=== PATIENT | male | born 1985 | race Caucasian/White ===

== ENCOUNTER 2019-12-31 08:58 | Outpatient (REF) | payer OTHER, SELFPAY | END 2019-12-31 08:59 | disposition home or self-care (01) | LOC: HO.LAB 08:58 | PROVIDERS: Visit Provider Internal Medicine | DX: Z20.828 Contact with and (suspected) exposure to other viral communicable diseases (principal) | CPT/HCPCS: C9803; U0003 ==

== ENCOUNTER 2021-08-09 15:49 | Outpatient (REF) | payer OTHER, SELFPAY ==
--- NOTE | ~2021-08-09 | XR_ITS ---
EXAMINATION: XR LUMBOSACRAL SPINE WITH OBLIQUES CLINICAL INFORMATION: Low back pain. COMPARISON: CT abdomen of 11/05/2018. TECHNIQUE: AP, both oblique, and lateral views of the lumbar spine. Lateral view of the lumbosacral junction. FINDINGS: There is no evidence of acute fracture, spondylolisthesis, or spondylolysis of the lumbar spine. There is disc space narrowing seen at the L5-S1 level with bilateral facet arthropathy right greater than left. Pedicles are intact. Sacroiliac joints unremarkable. Psoas margins intact. XR/XR lumbar spine 4V min IMPRESSION: Degenerative disc disease L5-S1 level. No acute fracture, spondylolisthesis, or spondylolysis identified.
== END 2021-08-09 15:50 | disposition home or self-care (01) ==
LOC: HO.XRAY 15:49
PROVIDERS: Visit Provider Emergency Medicine
DX: M54.50 Low back pain, unspecified (principal)
CPT/HCPCS: 72110

== ENCOUNTER 2021-09-04 23:30 | Emergency (ER) | payer OTHER, SELFPAY ==
--- NOTE | ~2021-09-04 | XR_ITS ---
EXAMINATION: XR CHEST CLINICAL INFORMATION: Chest pain COMPARISON: None TECHNIQUE: 2 views of the chest were obtained. FINDINGS: No significant abnormality is noted involving the heart, lungs, mediastinum, bony thorax or soft tissues. XR/XR chest 2V IMPRESSION: Unremarkable examination.
--- NOTE | 2021-09-04 23:37 | ECG_ITS ---
Test Reason : chest pain Blood Pressure : / mmHG Vent. Rate : 082 BPM Atrial Rate : 082 BPM P-R Int : 134 ms QRS Dur : 122 ms QT Int : 404 ms P-R-T Axes : 017 022 037 degrees QTc Int : 472 ms Normal sinus rhythm with sinus arrhythmia Non-specific intra-ventricular conduction delay Borderline ECG No previous ECGs available Referred By: Sydnie Prasad Electronically Signed By:ADITI DUNBAR
[2021-09-04 23:56] VITALS: BP 148/99; PULSE 94; RESP 16; TEMP 36.9; O2SAT 94; BMI 34.2
[2021-09-05 01:12] LABS: MANUAL DIFF FLAG NO
[2021-09-05 01:26] LABS: Basophils Percent Auto 0.4 % (0-2); Eosinophils Absolute Auto 0.1 X10*3/uL (0.0-0.4); Eosinophils Percent Auto 1.8 % (0-4); Hematocrit 42.8 % (42.0-52.0); Imm Gran Abs Auto 0.04 X10*3/uL (0.00-0.03); Imm Gran Pct Auto 0.6 % (0.0-0.4); Lymphocytes Absolute Auto 3.4 X10*3/uL (1.2-4.9); Lymphocytes Percent Auto 49.8 % (20-40); Mean Corpuscular Volume 94.1 fL (80.0-98.0); Monocytes Absolute Auto 0.7 X10*3/uL (0.1-1.2); Monocytes Percent Auto 9.5 % (2-11); Neutrophils Absolute Auto 2.6 x10*3/uL (2.0-8.3); Neutrophils Percent Auto 37.9 % (45-73); Red Blood Count 4.55 X10*6/uL (4.60-5.80); Red Cell Distribution Width 13.7 % (11.0-16.0); SCAN SMEAR FLAG 1; White Blood Count 6.9 X10*3/uL (4.8-10.8)
[2021-09-05 01:27] LABS: PLT ABN DIST 1
[2021-09-05 01:41] LABS: Troponin-I High Sensitivity < 3.5 ng/L (<3.5-35.0)
--- NOTE | 2021-09-05 01:41 | ED_ITS ---
HPI - Chest Pain General Chief Complaint: Chest Pain Stated Complaint: chest pain Time Seen by Provider: 09/04/21 23:36 Source: patient Mode of arrival: ambulatory History of Present Illness HPI narrative: 35-year-old male who presents with a history opioid dependency and has been clean for a number of years and presents with 3 months of left-sided chest pain that has not been associated with nausea, dizziness, shortness of breath but he states that the pain is worse today. On further questioning patient states that he has been using crack cocaine and last used at 21:30 last night. Related Data Allergies Allergy/AdvReac Type Severity Reaction Status Date / Time No Known Allergies Allergy Verified 09/04/21 23:57 [No Known Allergies*] Review of Systems Review of Systems: Pertinent positives and negatives as stated HPI 10 point review of systems is otherwise negative. PMFSH Past Medical History Source: nursing notes reviewed Social History Social History Advance Directives: No Advance Directives Information Provided: Yes Physical Exam Vital Signs: Vital Signs: Last Vital Signs Temp 98.4 F 09/04/21 23:56 Pulse 94 09/04/21 23:56 Resp 16 09/04/21 23:56 BP 148/99 H 09/04/21 23:56 Pulse Ox 94 09/04/21 23:56 O2 Del Method 09/04/21 23:56 BMI result Body Mass Index 34.2 VITAL SIGNS: Reviewed. GENERAL: Well developed, well nourished, in no acute distress. HEAD: Normocephalic/atraumatic EYES: PERRLA, EOMI EARS: Ext canals without abnormality OROPHARYNX: no oral lesions noted, posterior pharynx clear LUNGS: Normal breath sounds. No adventitious sounds or accessory muscle use. SpO2<94> CARDIOVASCULAR: Regular rate and rhythm without noted murmurs ABDOMEN: Soft, non-tender, non-distended with bowel sounds. MUSCULOSKELETAL: No tenderness, deformities, or effusions noted on gross inspection. EXTREMITIES: No cyanosis, clubbing or edema. SKIN: Inspection of the skin reveals no rashes NEUROLOGIC: Alert and oriented x 4. Strength and sensation to light touch were grossly intact x 4. Course Course Course Narrative: 35-year-old male with history and clinical presentation suggestive of possible cocaine induced chest pain, review of initial lab work demonstrates a negative troponin and on review of EKG there is no STEMI. 0145: Patient eloped MDM - Chest Pain Lab Data Result diagrams: 09/05/21 01:07 09/05/21 01:07 Labs: Lab Results 09/05/21 Range/Units 01:07 WBC 6.9 (4.8-10.8) X10*3/uL RBC 4.55 L (4.60-5.80) X10*6/uL Hgb 15.0 (14.0-18.0) g/dl Hct 42.8 (42.0-52.0) % MCV 94.1 (80.0-98.0) fL MCH 33.0 (27.0-33.0) pg MCHC 35.0 (31.0-36.0) g/dl RDW 13.7 (11.0-16.0) % Plt Count TNP MPV TNP Immature Gran % (Auto) 0.6 H (0.0-0.4) % Neut % (Auto) 37.9 L (45-73) % Lymph % (Auto) 49.8 H (20-40) % Davidson % (Auto) 9.5 (2-11) % Eos % (Auto) 1.8 (0-4) % Baso % (Auto) 0.4 (0-2) % Lymph # (Auto) 3.4 (1.2-4.9) X10*3/uL Davidson # (Auto) 0.7 (0.1-1.2) X10*3/uL Eos # (Auto) 0.1 (0.0-0.4) X10*3/uL Baso # (Auto) 0.0 (0.0-0.2) X10*3/uL Abs Immat Gran (auto) 0.04 H (0.00-0.03) X10*3/uL Absolute Neuts (auto) 2.6 (2.0-8.3) x10*3/uL Absolute Nucleated RBC 0.000 (0.0-0.012) X10*3/uL Nucleated RBC % (auto) 0.0 (0.0-0.2) /100WBC Discharge Plan Discharge Clinical Impression: Chest pain, Cocaine use Patient Disposition: Elopement Instructions: Chest Pain (ED), Cocaine Abuse (ED)
--- NOTE | 2021-09-05 01:43 | PC.NURSE ---
Addendum entered by Hank Abernathy RN 09/05/21 01:53: I searched the waiting room and outside the emergency room for the patient. He is unable to be located. Pt left ED without notifying staff/eloped. Original Note: I witnessed pt walking towards waiting room, asked him are you alright and he replied yes . No IV access. Gait steady. aware.
== END 2021-09-05 02:04 | disposition left against medical advice (07) ==
PROVIDERS: Physician Assistant Medical; Emergency Provider Student in an Organized Health Care Education/Training Program
DX: R07.9 Chest pain, unspecified (principal); F14.90 Cocaine use, unspecified, uncomplicated; F11.20 Opioid dependence, uncomplicated
CPT/HCPCS: 36415; 71046; 84484; 85025; 93005; 99283

== ENCOUNTER 2021-09-11 10:26 | Emergency (ER) | payer OTHER, SELFPAY ==
[2021-09-11 11:12] VITALS: BP 142/86; PULSE 101; RESP 16; TEMP 36.6; O2SAT 96; BMI 34.2
[2021-09-11 11:51] LABS: Appearance Urine CLEAR; Color Urine YELLOW; Glucose Urine UA NEG (NEG); Leukocyte Esterase Urine NEG (NEG); Nitrite Urine NEG (NEG); Specific Gravity - Urine 1.025 (1.005-1.025); Urine Blood NEG (NEG); Urine Ketones NEG (NEG); Urine Protein NEG (NEG-TRACE)
[2021-09-11 11:57] LABS: Basophils Percent Auto 0.2 % (0-2); Eosinophils Absolute Auto 0.1 X10*3/uL (0.0-0.4); Eosinophils Percent Auto 2.3 % (0-4); Hematocrit 41.3 % (42.0-52.0); Imm Gran Abs Auto 0.01 X10*3/uL (0.00-0.03); Imm Gran Pct Auto 0.2 % (0.0-0.4); Lymphocytes Absolute Auto 1.8 X10*3/uL (1.2-4.9); Lymphocytes Percent Auto 40.7 % (20-40); MANUAL DIFF FLAG SCAN; Mean Corpuscular HGB Conc 33.9 g/dl (31.0-36.0); Mean Corpuscular Hemoglobin 33.1 pg (27.0-33.0); Mean Corpuscular Volume 97.6 fL (80.0-98.0); Monocytes Absolute Auto 0.6 X10*3/uL (0.1-1.2); Monocytes Percent Auto 12.7 % (2-11); Neutrophils Absolute Auto 1.9 x10*3/uL (2.0-8.3); Neutrophils Percent Auto 43.9 % (45-73); PLT CLUMP 1; Red Blood Count 4.23 X10*6/uL (4.60-5.80); Red Cell Distribution Width 13.6 % (11.0-16.0); SCAN SMEAR FLAG 1
[2021-09-11 12:14] LABS: White Blood Count 4.4 X10*3/uL (4.8-10.8)
[2021-09-11 12:15] LABS: SLIDE REVIEW VERIFIED
[2021-09-11 12:16] LABS: Anion Gap 15 (12-20); Blood Urea Nitrogen 10 mg/dL (9-16); Calcium 9.9 mg/dL (8.4-10.2); Carbon Dioxide 26 mmol/L (22-29); Chloride 103 mmol/L (96-108); Creatinine Clr Calc Pharmacy 125.6; Estimated Glomerular Filt Rate > 60; Glucose Random 123 mg/dL (60-115); Potassium 4.6 mmol/L (3.3-5.1); Sodium 139 mmol/L (135-145)
== END 2021-09-11 13:57 | disposition left against medical advice (07) ==
PROVIDERS: Emergency Provider Emergency Medicine
DX: K46.9 Unspecified abdominal hernia without obstruction or gangrene (principal); R10.9 Unspecified abdominal pain; Z79.899 Other long term (current) drug therapy
CPT/HCPCS: 36415; 80048; 81003; 85025; 99282; 99283

== ENCOUNTER 2022-04-04 02:56 | Emergency (ER) | payer OTHER, SELFPAY ==
[2022-04-04 03:12] VITALS: BP 140/112; PULSE 104; RESP 20; TEMP 36.8; O2SAT 97; BMI 33.5
[2022-04-04 03:51] VITALS: BP 166/126; PULSE 110; RESP 19; TEMP 36.5; O2SAT 96
--- NOTE | 2022-04-04 03:58 | ED.GENADULT ---
HPI - General Adult General Chief complaint: General Medical Stated complaint: Medication refill? Recently moved Time Seen by Provider: 04/04/22 03:58 Source: patient Mode of arrival: ambulatory Limitations: no limitations History of Present Illness HPI narrative: . History of disorder on Lamictal Klonopin will get it as he moved from [place] does not have any PCP plan to settle down in [place] and in search of PCP last time patient took his medication was 3 days ago Related Data Previous Rx's Medication Instructions Recorded clonazepam 0.5 mg tablet (Klonopin) 0.5 mg PO BID PRN anxiety #20 tabs 04/04/22 lamotrigine 150 mg tablet 150 mg PO BID #60 tabs 04/04/22 (Lamictal) Allergies Allergy/AdvReac Type Severity Reaction Status Date / Time No Known Allergies Allergy Verified 04/04/22 03:17 [No Known Allergies*] Review of Systems Review of Systems: Yes all other systems are reviewed and are negative PMFSH Social History Social History Advance Directives: No Advance Directives Information Provided: Yes Physical Exam ED Vital Signs: Vital Signs - 24 hr 04/04/22 03:12 04/04/22 03:51 Temperature 98.3 F 97.7 F Pulse Rate 104 H 110 H Respiratory Rate 20 19 Blood Pressure 140/112 H 166/126 H Pulse Oximetry 97 96 Oxygen Delivery Method Room Air Room Air BMI result Body Mass Index 33.5 Appearance: Alert. Oriented X3. No acute distress. Eyes: PERRLA, No Nystagmus ENT: Pharynx normal. Oral Mucosa moist Neck: Normal inspection. Neck supple. CVS: Normal heart rate and rhythm. Pulses normal. Respiratory: No respiratory distress. Equal air entry bilateral, no wheezing/rales/rhonchi Abdomen: Soft and nontender. Bowel sounds are present, no mass palpable, no CVA tenderness Skin: Skin warm and dry. Normal skin color. Normal skin turgor. Extremities: No lower extremity edema. No calf tenderness Neuro: Oriented X 3. No motor deficit. No sensory deficit.No cerebellar signs , cranial nerves II-XII intact Medical Decision Making Medical Decision Making MDM Narrative: Will fill the prescription medication checked in the records patient used to be taking his medication for a while Discharge Plan Discharge Clinical Impression: Bipolar 1 disorder Patient Disposition: Home, Self-Care Instructions: Bipolar Disorder (ED) Additional Instructions: Taking medication as prescribed and follow with PCP Prescriptions: New lamotrigine [Lamictal] 150 mg tablet 150 mg PO BID Qty: 60 0RF clonazepam [Klonopin] 0.5 mg tablet 0.5 mg PO BID PRN (Reason: anxiety) Qty: 20 0RF Interventions: ED Discharge Assessment Last Done: 04/04/22 05:03 Discharge Date/Time: 04/04/22 05:04
--- OUTSIDE RECORDS SUMMARY | 2022-04-04 03:58 | XMS_ITS | Continuity of Care Document ---
:1985 Author Organization [facility] Address [address] [place] [address]- Care Team Providers Name Role Phone Not on Staff, PCP Primary Care Physician Unavailable Encounter [facility] Date(s): 10/15/19 - 10/15/[address] [address]- [facility] Encounter Diagnosis Olecranon bursitis (Final) - 10/16/19 Cellulitis (Final) - 10/16/19 Discharge Disposition: A-D/C Home Attending Physician: Maryan Smart MD Admitting Physician: Maryan Smart MD Referring Physician: Not on Staff, Referring MD Allergies, Adverse Reactions, Alerts Substance Reaction Severity Status ZyPREXA Active Immunizations Given and Recorded Vaccine Date Status Refusal Reason tetanus/diphtheria/pertussis, acel(Tdap) 08/01/15 Given Medications No Known Medications Problem List Condition Effective Dates Status Health Status Informant Bipolar disorder(Confirmed) Active Chronic hepatitis C(Confirmed) Active Panic disorder(Confirmed) Active Results Radiology Reports Exam Date Time Procedure Performing Provider Status 10/15/19 6:18 PM Chest 2 Views Frontal and Lat Dashawn Cifuentes (Verified) Notes:(Chest 2 Views Frontal and Lat) Reason For Exam: Pleuritic PainRESULT: Chest 2 Views Frontal and Lat Chest 2 Views Frontal and Lat Hx of Present Illness: Patient coming from [facility] with persistent abscess and erythema to left elbow that has drained multiple times in the past 2 weeks. Patient also has palpable mass without erythema at left anterior chest x 2 weeks. COMPARISON: 01/20/2013 FINDINGS: LINES AND TUBES: None. LUNGS AND PLEURA: Clear lungs. Normal pulmonary vascularity. No pleural effusion. No pneumothorax. HEART, MEDIASTINUM AND BETY: Heart is normal in size. Normal mediastinal and hilar contour. BONES AND SOFT TISSUES: No acute abnormality. IMPRESSION: No acute abnormality. WSN: [id number] Ordering Physician: Bubba Moore Dictated By: Jorge Alberto Hernadez DO Dictated Date/Time: 10/15/19 6:31 pm Reviewed By: Jorge Alberto Hernadez DO Signed By: Jorge Alberto Hernadez DO Signed Date/Time: 10/15/19 6:31 pm Transcribed By: SRINI Transcribed Date/Time: 10/15/19 6:30 pm Vital Signs Most recent to oldest [Reference 1 2 3 Range]: Height 180 cm 180 cm (10/15/19 6:30 PM) (10/15/19 2:06 PM) Weight 89.4 kg 89.4 kg (10/15/19 6:30 PM) (10/15/19 2:06 PM) Oxygen Saturation [94-100 %] 100 % 96 % 95 % (10/15/19 6:30 PM) (10/15/19 2:06 PM) (10/15/19 2:04 P M) Pulse Rate [55-90 bpm] 87 bpm 85 bpm 101 bpm (10/15/19 6:30 PM) (10/15/19 2:06 PM) *H* (10/15/19 2:04 PM) Body Mass Index [18.5-24.99] 27.59 27.59 *H* *H* (10/15/19 6:30 PM) (10/15/19 2:06 PM) Blood Pressure [90-138/55-84 mm 153/73 mm Hg 144/80 mm Hg Hg] *H* *H* (10/15/19 6:30 PM) (10/15/19 2:06 PM) Respiratory Rate [16-30 br/min] 17 br/min 18 br/min (10/15/19 6:30 PM) (10/15/19 2:06 PM) Temperature [96.8-100.4 DegF] 98.1 DegF 98.3 DegF (10/15/19 6:30 PM) (10/15/19 2:06 PM) Liters per Minute 0 L/min (10/15/19 2:04 PM) Mode of Delivery (Oxygen) Room air Room air Room a ir (10/15/19 6:30 PM) (10/15/19 2:06 PM) (9/3/20 2:04 P M) Blood pressure sites Arm, left Arm, right (10/15/19 6:30 PM) (10/15/19 2:06 PM) Temperature Route Oral Oral (10/15/19 6:30 PM) (10/15/19 2:06 PM) Dry Weight 89.4 kg 89.4 kg (10/15/19 6:30 PM) (10/15/19 2:06 PM) Weight Obtained Via Standing scale (10/15/19 2:06 PM) Dry Weight Obtained Via Standing scale (10/15/19 2:06 PM)
== END 2022-04-04 05:04 | disposition home or self-care (01) ==
PROVIDERS: Emergency Provider Internal Medicine
DX: F31.9 Bipolar disorder, unspecified (principal); Z76.0 Encounter for issue of repeat prescription; Z79.899 Other long term (current) drug therapy
CPT/HCPCS: 99283

== ENCOUNTER 2022-04-05 10:52 | Emergency (ER) | payer OTHER, SELFPAY ==
--- NOTE | 2022-04-05 11:17 | ED_ITS ---
HPI - General Adult General Chief complaint: General Medical <Ciarra Tai CNP - Last Filed: 04/05/22 11:38> Stated complaint: medication <Ciarra Tai CNP - Last Filed: 04/05/22 11:38> Time Seen by Provider: 04/05/22 11:27 <Ciarra Tai CNP - Last Filed: 04/05/22 11:38> Source: patient <LIZANDRO Galvin - Last Filed: 04/05/22 12:40> Mode of arrival: ambulatory <LIZANDRO Galvin - Last Filed: 04/05/22 12:40> Limitations: no limitations <LIZANDRO Galvin Last Filed: 04/05/22 12:40> History of Present Illness HPI narrative: 36 yo male with history of opioid use disorder on Methadone 140 mg, last given his dose on 04/02 who presents to the ER for methadone dose. He recently moved here from [place] and comes with his last dose letter. He went to [facility] today for intake, but he was told there was no doctor on and to come here for dosing. He denies any illicit drug use since not having his methadone the lat 2 days. He was here last night for his other medications, did not ask for methadone because he thought he would get it at the clinic today. <LIZANDRO Galvin - Last Filed: 04/05/22 12:40> MD complaint: methadone dosing <LIZANDRO Galvin - Last Filed: 04/05/22 12:40> Onset (ago): day(s) <LIZANDRO Galvin - Last Filed: 04/05/22 12:40> Radiation: non-radiation <LIZANDRO Galvin Last Filed: 04/05/22 12:40> Severity: moderate <LIZANDRO Galvin Last Filed: 04/05/22 12:40> Relieving factors: none <LIZANDRO Galvin Last Filed: 04/05/22 12:40> Exacerbating factors: none <LIZANDRO Galvin Last Filed: 04/05/22 12:40> Associated symptoms: denies other symptoms <LIZANDRO Galvin - Last Filed: 04/05/22 12:40> Treatments prior to arrival: none <LIZANDRO Galvin - Last Filed: 04/05/22 12:40> Related Data Home medications: Previous Rx's Medication Instructions Recorded clonazepam 0.5 mg tablet (Klonopin) 0.5 mg PO BID PRN anxiety #20 tabs 04/04/22 lamotrigine 150 mg tablet 150 mg PO BID #60 tabs 04/04/22 (Lamictal) <Ciarra Tai CNP - Last Filed: 04/05/22 11:38> Allergies/adverse reactions: Allergies Allergy/AdvReac Type Severity Reaction Status Date / Time No Known Allergies Allergy Verified 04/04/22 03:17 [No Known Allergies*] <Ciarra Tai CNP - Last Filed: 04/05/22 11:38> Review of Systems Review of Systems: Yes all other systems are reviewed and are negative <LIZANDRO Galvin - Last Filed: 04/05/22 12:40> [facility] Social History Social History: Social History Advance Directives: No <Ciarra Tai CNP - Last Filed: 04/05/22 11:38> Physical Exam ED Vital Signs: Vital Signs - 24 hr 04/05/22 11:18 Temperature 97.9 F Pulse Rate 101 H Respiratory Rate 16 Blood Pressure 149/86 H Pulse Oximetry 95 Oxygen Delivery Method Room Air BMI result Body Mass Index 33.5 <Ciarra Tai CNP - Last Filed: 04/05/22 11:38> Vital Signs - 24 hr 04/05/22 11:18 Temperature 97.9 F Pulse Rate 101 H Respiratory Rate 16 Blood Pressure 149/86 H Pulse Oximetry 95 Oxygen Delivery Method Room Air BMI result Body Mass Index 33.5 <LIZANDRO Galvin - Last Filed: 04/05/22 12:40> Appearance: Alert. Oriented X3. No acute distress. HEENT: normal inspection CVS: Normal heart rate and rhythm. Pulses normal. Respiratory: No respiratory distress. Skin: Skin warm and dry. Normal skin color. Normal skin turgor. No rashes. Extremities: normal inspection, no track brandon Neuro: Oriented X 3. No motor deficit. No sensory deficit. <LIZANDRO Galvin - Last Filed: 04/05/22 12:40> Course Course Course Narrative: This is an RME: Additional HPI, ROS, PE not included below will be deferred to primary provider. Patient is a 36-year-old male who presents to the emergency department for assistance with methadone dosing. He reports that he recently moved from [place], he has a last dose letter for methdone 145mg; last seen in clinic there 03/30 and received 3 dose bottles, states last dose taken 04/02. Needs dosing verified from ED before can receive treatment at [facility]; he was supposed to be seen at clinic today for intake, but apparently there was no doctor there today by his report. Denies any recreational drug usage since last dosing. Plan: Review last dosing letter, administer dosage here today if appropriate, provide information for clinic. <Ciarra Tai CNP - Last Filed: 04/05/22 11:38> Reevaluation(s) Reevaluation #1: Addiction services assisted in confirming dosing at [facility] His 140 mg has been ordered for today to be given now utox ordered plan to d/c with future doses to come from [facility] <LIZANDRO Galvin - Last Filed: 04/05/22 12:40> Medical Decision Making Differential Diagnosis Differential Diagnoses: The differential diagnosis associated with the presentation includes <LIZANDRO Galvin - Last Filed: 04/05/22 12:40> opioid use disorder, medication noncompliance, relapse <LIZANDRO Galvin - Last Filed: 04/05/22 12:40> Consult Healthcare Provider Management of the patient was discussed with: Behavioral Health Provider <LIZANDRO Galvin - Last Filed: 04/05/22 12:40> Independent Historian Clinical information obtained from an independent historian. History obtained from or confirmed by: Spouse <LIZANDRO Galvin - Last Filed: 04/05/22 12:40> External Record Review External record reviewed: Office record <LIZANDRO Galvin - Last Filed: 04/05/22 12:40> Chronic Conditions Patient?s care impacted by: Other (opioid use disorder) <LIZANDRO Galvin - Last Filed: 04/05/22 12:40> Social Determinants Patient?s care significantly limited by Social Determinants of Health including: Other Social Determinant of Health <LIZANDRO Galvin - Last Filed: 04/05/22 12:40> Critical Care Time Critical Care Time Critical Care Time: No <LIZANDRO Galvin - Last Filed: 04/05/22 12:40> Discharge Plan Discharge Clinical Impression: Opioid use disorder <Ciarra Tai CNP - Last Filed: 04/05/22 11:38> Patient Disposition: Home, Self-Care <Ciarra Tai CNP - Last Filed: 04/05/22 11:38> Instructions: Opioid Use Disorder (ED) <Ciarra Tai CNP - Last Filed: 04/05/22 11:38> Additional Instructions: You were given your last dose of methadone 145 mg today, 04/05/22 Follow up with [facility] for further dosing <Ciarra Tai CNP - Last Filed: 04/05/22 11:38> Prescriptions: No Action lamotrigine [Lamictal] 150 mg tablet 150 mg PO BID Qty: 60 0RF clonazepam [Klonopin] 0.5 mg tablet 0.5 mg PO BID PRN (Reason: anxiety) Qty: 20 0RF <Ciarra Tai CNP - Last Filed: 04/05/22 11:38>
[2022-04-05 11:18] VITALS: BP 149/86; PULSE 101; RESP 16; TEMP 36.6; O2SAT 95; BMI 33.5
--- NOTE | 2022-04-05 11:52 | MHC.RECOVRN ---
This personal lines underwriter met w/ patient, patient requesting MTD dose. Patient reports moved from [place] to [facility], arrived here late 04/03/22. Patient reports had admission appt this morning 04/05/21 at [facility], the clinic referred patient to [facility] to get dosed, as the covering Doctor did not come into work today at [facility] and staff were unable to complete admission. Patient presents with last dose letter. Patient visibly diaphoretic, runny nose, runny eyes, patient reports bodyaches. This personal lines underwriter faxed MTD verification to pharmacy, patient last dosed at [facility] on 03/30/22 in the clinic, received 3 take home bottles for 03/31,04/01, 04/02, patient receives 145mg, last dose 04/02/22 145mg MTD.
--- NOTE | 2022-04-05 12:58 | HE.PHANOTE ---
Methadone Maintenance Clinic Verification Form: Clinic Name : [facility] Date and Time of Notification 04/05/22 Methadone Dose : patient received 3 take home bottles on 03/30 , 03/31, 04/01, 04/02 for 145 mg Name of person at clinic : USMAN Honeycutt
[2022-04-05] MEDS: methADONE HCl 20 MG/2 ML ORAL.CONC 145 MG PO (13:00)
[2022-04-05 13:46] LABS: Amphetamine Screen Urine Not Detected (Not Detect); Barbiturates, Urine Not Detected (Not Detect); Benzodiazepines Screen Urine Not Detected (Not Detect); Cannabinoid Screen Urine Not Detected (Not Detect); Cocaine Screen Urine POSITIVE (Not Detect); Fentanyl, urine POSITIVE (Not Detect); Opiate Screen Urine POSITIVE (Not Detect); Phencyclidine Screen Urine Not Detected (Not Detect)
== END 2022-04-05 13:28 | disposition home or self-care (01) ==
PROVIDERS: Physician Assistant; Emergency Provider Emergency Medicine
DX: F11.20 Opioid dependence, uncomplicated (principal); F41.9 Anxiety disorder, unspecified; Z79.899 Other long term (current) drug therapy
CPT/HCPCS: 80307; 99282; 99283

== ENCOUNTER 2022-04-24 11:56 | Emergency (ER) | payer OTHER, SELFPAY ==
[2022-04-24 12:10] VITALS: BP 169/85; PULSE 70; RESP 18; TEMP 36.7; O2SAT 98; BMI 33.5
--- OUTSIDE RECORDS SUMMARY | 2022-04-24 14:17 | XMS_ITS ---
:1985 Author Care Team Providers Name Role Phone Backfill, Dummy Primary Care Provider Unavailable Allergies Code Code System Name Reaction Severity Status Onset NKDA ? Medications Name Status Start Date Stop Date ? ? acamprosate 333 mg tablet,delayed release Active ? Not available TAKE 2 TABLETS BY MOUTH 3 TIMES A DAY alprazolam 0.25 mg tablet Active ? Not av ailable alprazolam 1 mg tablet Active ? Not avail able alprazolam 2 mg tablet Active ? Not avail able amoxicillin 500 mg capsule Active ? Not a vailable benztropine 1 mg tablet Active ? Not avai lable clonidine HCl 0.1 mg tablet Active ? Not available Take 1 tablet every 8 hours by oral route. dextroamphetamine-amphetamine 15 mg tablet Active ? Not available Ear Drops (carbamide peroxide) 6.5 % Active ? Not available gabapentin 600 mg tablet Active ? Not bita ilable hydroxyzine pamoate 25 mg capsule Active ? Not available Take 1 capsule every 6 hours by oral route. ibuprofen 800 mg tablet Active ? Not avai lable Mavyret 100 mg-40 mg tablet Active ? Not available mirtazapine 30 mg tablet Active ? Not bita ilable Narcan 4 mg/actuation nasal spray Active ? Not available prednisone 50 mg tablet Active ? Not avai lable Sublocade 300 mg/1.5 mL solution,extended release subcutaneous s yringe Active ? Not available Inject 1.5 mL every month by subcutaneous route. Suboxone 8 mg-2 mg sublingual film Active ? Not available Place 2.5 films every day by sublingual route. Vistaril 50 mg capsule Active ? Not avail able Take 1 capsule 4 times a day by oral route. Vraylar 6 mg capsule Active ? Not availab le Vyvanse 70 mg capsule Active ? Not availa ble Problems Name Status Onset Date Source ? Viral Hepatitis C Active 04/01/2019 ? Bipolar Disorder Active 04/01/2019 ? Anxiety Active 04/01/2019 ? Opioid Dependence Active 04/01/2019 ? Cocaine Dependence Active 04/01/2019 ? Attention Deficit Hyperactivity Disorder Active 020 ? Heroin Dependence Active 05/15/2019 ? 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 Procedures None recorded. Results Lab Results Date Name Specimen Result Interpretation Description Value Range Status Address ? 06/04/2019 Drug UR ? Amphetamine negative 100 Final [facility], [facility]: [facility] [address], [place] ? ? UR ? Benzodiazepine negative 100 Final [facility]: [address], [place] ? ? UR ? Buprenorphine positive 100 Final [facility]: [address], [place] ? ? UR ABNORMAL Cocaine Metab. positive 100 Mil[facility]: [address], [place] ? ? UR ? Methadone negative 100 Final [facility]: [address], [place] ? ? UR ABNORMAL Opiates positive 100 Final [facility]: [address], [place] ? ? UR ? Oxycodone negative 100 Final [facility]: [address], [place] ? ? UR High Fentanyl positive 100 Final [facility]: [address], [place] ? ? UR ? Creatinine 69.4 mg/dL >20 Final [facility] mg/dL Health: [address], [place] ? ? UR ? Specific [place] 1.012 1.003 Final [facility] -1.03 [facility]: [address], [place] ? ? UR ? Ph 7.50 4.5-9 Final [facility] .0 [facility]: [address], [place] 06/04/2019 Drug UR ? 6Mam 0, N/F 10 Final [facility] Confirmat NG/mL NG/mL Health: ion, [address], [place] ? ? UR High Clonazepam 31 NG/mL 25 Final Marcial juliann NG/mL Health: [address], [place] ? ? UR ? Alprazolam 0, N/F 25 Final [facility] NG/mL NG/mL Health: [address], [place] ? ? UR ? Ampehetamine 0, N/F 250 Final Marcial juliann NG/mL NG/mL Health: [address], [place] ? ? UR Panic High Benzoylecgonine >2,000, 100 Fi nal [facility] >2,000 NG/mL Health: NG/mL [address], [place] ? ? UR ? Buprenorphine normal, 71 20 Final [facility] NG/mL NG/mL Health: [address], [place] ? ? UR ? Codeine <50, <50 50 Final [facility] NG/mL NG/mL Health: [address], [place] ? ? UR ? Diazepam 0, N/F 50 Final [facility] NG/mL NG/mL Health: [address], [place] ? ? UR High Methadone Metab 885 NG/mL 100 Milag[facility] [place] [facility] NG/mL Health: [address], [place] ? ? UR High Fentanyl 45 NG/mL 20 Final [facility] NG/mL [facility]: [address], [place] ? ? UR ? Hydrocodone 0, N/F 50 Final [facility] NG/mL NG/mL Health: [address], [place] ? ? UR ? Hydromorphone 0, N/F 50 Final [facility] [place] NG/mL NG/mL Health: [address], [place] ? ? UR ? Lorazepam 0, N/F 50 Final [facility] NG/mL NG/mL Health: [address], [place] ? ? UR ? Mda 0, N/F 250 Final [facility] NG/mL NG/mL Health: [address], [place] ? ? UR ? Methadone <250, <250 250 Final [facility] [place] NG/mL NG/mL Health: [address], [place] ? ? UR ? Methamphetamine 0, N/F 250 Final [facility] NG/mL NG/mL Health: [address], [place] ? ? UR High Morphine 374 NG/mL 50 Final [facility] NG/mL Health: [address], [place] ? ? UR ? Norbuprenorphine normal, 50 Final [facility] 104 NG/mL NG/mL Health: [address], [place] ? ? UR ? Nordiazepam 0, N/F 50 Final [facility] NG/mL NG/mL Health: [address], [place] ? ? UR High Norfentanyl 590 NG/mL 20 Final [facility] NG/mL Health: [address], [place] ? ? UR ? Norhydrocodone 0, N/F 100 Final [facility] NG/mL NG/mL Health: [address], [place] ? ? UR ? Normeperidine 0, N/F 100 Final [facility] [place] NG/mL NG/mL Health: [address], [place] ? ? UR ? Noroxycodone 0, N/F 50 Final Marcial juliann NG/mL NG/mL Health: [address], [place] ? ? UR ? Oxycodone 0, N/F 25 Final [facility] NG/mL NG/mL Health: [address], [place] ? ? UR ? Oxymorphone 0, N/F 100 Final [facility] NG/mL NG/mL Health: [address], [place] ? ? UR ? Pcp 0, N/F 50 Final [facility] NG/mL NG/mL Health: [address], [place] ? ? UR ? Temazepam 0, N/F 50 Final [facility] NG/mL NG/mL Health: [address], [place] ? ? UR ? Tramadol 0, N/F 100 Final [facility] NG/mL NG/mL Health: [address], [place] ? ? UR ? Methylphenidate 0, N/F 50 Final [facility] NG/mL NG/mL Health: [address] 05/19/2019 Drug UR ? Amphetamine negative 100 Final [facility], [facility]: Urine [address], [place] ? ? UR ? Benzodiazepine negative 100 Final [facility]: [address], [place] ? ? UR ? Buprenorphine positive 100 Final [facility]: [address], [place] ? ? UR ABNORMAL Cocaine Metab. positive 100 Milagros l [facility]: [address], [place] ? ? UR ? Methadone negative 100 Final [facility]: [address], [place] ? ? UR ? Opiates negative 100 Final [facility]: [address], [place] ? ? UR ? Oxycodone negative 100 Final [facility]: [address], [place] ? ? UR High Fentanyl positive 100 Final [facility]: [address], [place] ? ? UR ? Creatinine 157.1 >20 Final [facility] mg/dL mg/dL Health: [address], [place] ? ? UR ? Specific [place] 1.011 1.003 Final [facility] -1.03 Health: 5 [address], [place] ? ? UR High Ph 9.10 4.5-9 Final [facility] .0 [facility]: [address], [place] 05/19/2019 Drug UR ? 6Mam 0, N/F 10 Final [facility] Confirmat NG/mL NG/mL Health: ion, [address], [place] ? ? UR ? Clonazepam 0, N/F 25 Final [facility] NG/mL NG/mL Health: [address], [place] ? ? UR ? Alprazolam 0, N/F 25 Final [facility] NG/mL NG/mL Health: [address], [place] ? ? UR ? Ampehetamine 0, N/F 250 Final Marcial juliann NG/mL NG/mL Health: [address], [place] ? ? UR Panic High Benzoylecgonine >2,000, 100 Fi nal [facility] >2,000 NG/mL Health: NG/mL [address], [place] ? ? UR ? Buprenorphine normal, 20 Final [facility] 106 NG/mL NG/mL Health: [address], [place] ? ? UR ? Codeine 0, N/F 50 Final [facility] NG/mL NG/mL Health: [address], [place] ? ? UR ? Diazepam 0, N/F 50 Final [facility] NG/mL NG/mL Health: [address], [place] ? ? UR ? Methadone Metab 0, N/F 100 Final [facility] NG/mL NG/mL Health: [address], [place] ? ? UR High Fentanyl 75 NG/mL 20 Final [facility] NG/mL Health: [address], [place] ? ? UR ? Hydrocodone 0, N/F 50 Final [facility] NG/mL NG/mL Health: [address], [place] ? ? UR ? Hydromorphone 0, N/F 50 Final [facility] [place] NG/mL NG/mL Health: [address], [place] ? ? UR ? Lorazepam 0, N/F 50 Final [facility] NG/mL NG/mL Health: [address], [place] ? ? UR ? Mda 0, N/F 250 Final [facility] NG/mL NG/mL Health: [address], [place] ? ? UR ? Methadone 0, N/F 250 Final [facility] NG/mL NG/mL Health: [address], [place] ? ? UR ? Methamphetamine 0, N/F 250 Final [facility] NG/mL NG/mL Health: [address], [place] ? ? UR ? Morphine <50, <50 50 Final [facility] NG/mL NG/mL Health: [address], [place] ? ? UR ? Norbuprenorphine normal, 50 Final [facility] 138 NG/mL NG/mL Health: [address], [place] ? ? UR ? Nordiazepam 0, N/F 50 Final [facility] da NG/mL NG/mL Health: [address], [place] ? ? UR High Norfentanyl 994 NG/mL 20 Final [facility] NG/mL Health: [address], [place] ? ? UR ? Norhydrocodone 0, N/F 100 Final S [facility] NG/mL NG/mL Health: [address], [place] ? ? UR ? Normeperidine 0, N/F 100 Final [place] NG/mL NG/mL Health: [address], [place] ? ? UR ? Noroxycodone 0, N/F 50 Final Marcial juliann NG/mL NG/mL Health: [address], [place] ? ? UR ? Oxycodone 0, N/F 25 Final [facility] NG/mL NG/mL Health: [address], [place] ? ? UR ? Oxymorphone 0, N/F 100 Final [facility] da NG/mL NG/mL Health: [address], [place] ? ? UR ? Pcp 0, N/F 50 Final [facility] NG/mL NG/mL Health: [address], [place] ? ? UR ? Temazepam 0, N/F 50 Final [facility] NG/mL NG/mL Health: [address], [place] ? ? UR ? Tramadol 0, N/F 100 Final [facility] NG/mL NG/mL Health: [address], [place] ? ? UR ? Methylphenidate 0, N/F 50 Final [facility] NG/mL NG/mL Health: [address], [place] 05/14/2019 Drug ? Amphetamine negative 100 Final [facility], [facility]: Urine [address], [place] ? ? ? Benzodiazepine negative 100 Final [facility]: [address], [place] ? ? ? Buprenorphine positive 100 Final [facility]: [address], [place] ? ? ? Cannabinoid negative 100 Final [facility]: [address], [place] ? ? ABNORMAL Cocaine Metab. positive 100 Milagros l [facility]: [address], [place] ? ? ? Methadone negative 100 Final [facility]: [address], [place] ? ? ? Opiates negative 100 Final [facility]: [address], [place] ? ? ? Oxycodone negative 100 Final [facility]: [address], [place] ? ? ? Ethanol <10, <10 <10 Final [facility] mg/dL mg/dL Health: [address], [place] ? ? High Fentanyl positive 100 Final [facility]: [address], [place] ? ? ? Creatinine 317.9 >20 Final [facility] mg/dL mg/dL Health: [address], [place] ? ? ? Specific [place] 1.027 1.003 Final [facility] -1.03 Health: [address], [place] ? ? ? Ph 6.20 4.5-9 Final [facility] .0 Health: [address], [place] 05/14/2019 Drug UR ? 6Mam 0, N/F 10 Final [facility] Confirmat NG/mL NG/mL Health: ion, [address], [place] ? ? UR ? Clonazepam 0, N/F 25 Final [facility] NG/mL NG/mL Health: [address], [place] ? ? UR ? Alprazolam 0, N/F 25 Final [facility] NG/mL NG/mL Health: [address], [place] ? ? UR ? Ampehetamine 0, N/F 250 Final Marcial juliann NG/mL NG/mL Health: [address], [place] ? ? UR Panic High Benzoylecgonine >2,000, 100 Fi nal [facility] >2,000 NG/mL Health: NG/mL [address], [place] ? ? UR ? Buprenorphine normal, 20 Final [facility] 234 NG/mL NG/mL Health: [address], [place] ? ? UR ? Codeine 0, N/F 50 Final [facility] NG/mL NG/mL Health: [address], [place] ? ? UR ? Diazepam 0, N/F 50 Final [facility] NG/mL NG/mL Health: [address], [place] ? ? UR ? Methadone Metab 0, N/F 100 Final [facility] NG/mL NG/mL Health: [address], [place] ? ? UR High Fentanyl 140 NG/mL 20 Final [facility] NG/mL Health: [address], [place] ? ? UR ? Hydrocodone 0, N/F 50 Final [facility] NG/mL NG/mL Health: [address], [place] ? ? UR ? Hydromorphone 0, N/F 50 Final [facility] [place] NG/mL NG/mL Health: [address], [place] ? ? UR ? Lorazepam 0, N/F 50 Final [facility] NG/mL NG/mL Health: [address], [place] ? ? UR ? Mda 0, N/F 250 Final [facility] NG/mL NG/mL Health: [address], [place] ? ? UR ? Methadone 0, N/F 250 Final [facility] NG/mL NG/mL Health: [address], [place] ? ? UR ? Methamphetamine 0, N/F 250 Final [facility] NG/mL NG/mL Health: [address], [place] ? ? UR ? Morphine <50, <50 50 Final [facility] NG/mL NG/mL Health: [address], [place] ? ? UR ? Norbuprenorphine normal, 50 Final [facility] 338 NG/mL NG/mL Health: [address], [place] ? ? UR ? Nordiazepam 0, N/F 50 Final [facility] NG/mL NG/mL Health: [address], [place] ? ? UR High Norfentanyl 884 NG/mL 20 Final [facility] NG/mL Health: [address], [place] ? ? UR ? Norhydrocodone 0, N/F 100 Final [facility] NG/mL NG/mL Health: [address], [place] ? ? UR ? Normeperidine 0, N/F 100 Final [facility] [place] NG/mL NG/mL Health: [address], [place] ? ? UR ? Noroxycodone 0, N/F 50 Final Amrcial juliann NG/mL NG/mL Health: [address], [place] ? ? UR ? Oxycodone 0, N/F 25 Final [facility] NG/mL NG/mL Health: [address], [place] ? ? UR ? Oxymorphone 0, N/F 100 Final [facility] da NG/mL NG/mL Health: [address], [place] ? ? UR ? Pcp 0, N/F 50 Final [facility] NG/mL NG/mL Health: [address], [place] ? ? UR ? Temazepam 0, N/F 50 Final [facility] NG/mL NG/mL Health: [address], [place] ? ? UR ? Tramadol <100, <100 100 Final Marcial juliann NG/mL NG/mL Health: [address], [place] ? ? UR ? Methylphenidate 0, N/F 50 Final [facility] NG/mL NG/mL Health: [address], [place] 04/01/2019 Drug UR ABNORMAL Amphetamine positive 100 Fin al [facility], Health: Urine [address], [place] ? ? UR ABNORMAL Benzodiazepine positive 100 Mil[place] l [facility]: [address], [place] ? ? UR ? Buprenorphine positive 100 Final [facility]: [address], [place] ? ? UR ? Cannabinoid negative 100 Final [facility]: [address], [place] ? ? UR ABNORMAL Cocaine Metab. positive 100 Milagros l [facility]: [address], [place] ? ? UR ? Methadone negative 100 Final [facility]: [address], [place] ? ? UR ? Opiates negative 100 Final [facility]: [address], [place] ? ? UR ? Oxycodone negative 100 Final [facility]: [address], [place] ? ? UR ? Ethanol <10, <10 <10 Final [facility] mg/dL mg/dL Health: [address], [place] ? ? UR High Fentanyl positive 100 Final [facility]: [address], [place] ? ? UR ? Creatinine 193.1 >20 Final [facility] mg/dL mg/dL Health: [address], [place] ? ? UR ? Specific [place] 1.018 1.003 Final [facility] -1.03 Health: [address], [place] ? ? UR ? Ph 8.00 4.5-9 Final [facility] .0 Health: [address], [place] 04/01/2019 Drug UR ? 6Mam 0, N/F 10 Final [facility] Confirmat NG/mL NG/mL Health: ion, [address], [place] ? ? UR ? Clonazepam 0, N/F 25 Final [facility] NG/mL NG/mL Health: [address], [place] ? ? UR High Alprazolam 342 NG/mL 25 Final [facility] [place] NG/mL Health: [address], [place] ? ? UR High Ampehetamine 4218 NG/mL 250 Final [facility] NG/mL Health: [address], [place] ? ? UR Panic High Benzoylecgonine >2,000, 100 Fi nal [facility] >2,000 NG/mL Health: NG/mL [address], [place] ? ? UR ? Buprenorphine normal, 20 Final [facility] 193 NG/mL NG/mL Health: [address], [place] ? ? UR ? Codeine 0, N/F 50 Final [facility] NG/mL NG/mL Health: [address], [place] ? ? UR ? Diazepam 0, N/F 50 Final [facility] NG/mL NG/mL Health: [address], [place] ? ? UR ? Methadone Metab 0, N/F 100 Final [facility] NG/mL NG/mL Health: [address], [place] ? ? UR ? Fentanyl 0, N/F 20 Final [facility] NG/mL NG/mL Health: [address], [place] ? ? UR ? Hydrocodone 0, N/F 50 Final Sher[facility] da NG/mL NG/mL Health: [address], [place] ? ? UR ? Hydromorphone 0, N/F 50 Final [place] NG/mL NG/mL Health: [address], [place] ? ? UR ? Lorazepam 0, N/F 50 Final [facility] NG/mL NG/mL Health: [address], [place] ? ? UR ? Mda 0, N/F 250 Final [facility] NG/mL NG/mL Health: [address], [place] ? ? UR ? Methadone 0, N/F 250 Final [facility] NG/mL NG/mL Health: [address], [place] ? ? UR ? Methamphetamine 0, N/F 250 Final [facility] NG/mL NG/mL Health: [address], [place] ? ? UR ? Morphine 0, N/F 50 Final [facility] NG/mL NG/mL Health: [address], [place] ? ? UR ? Norbuprenorphine normal, 50 Final [facility] 271 NG/mL NG/mL Health: [address], [place] ? ? UR ? Nordiazepam 0, N/F 50 Final [facility] NG/mL NG/mL Health: [address], [place] ? ? UR ? Norfentanyl 0, N/F 20 Final [facility] NG/mL NG/mL Health: [address], [place] ? ? UR ? Norhydrocodone 0, N/F 100 Final [facility] NG/mL NG/mL Health: [address], [place] ? ? UR ? Normeperidine 0, N/F 100 Final [place] NG/mL NG/mL Health: [address], [place] ? ? UR ? Noroxycodone 0, N/F 50 Final Marcial juliann NG/mL NG/mL Health: [address], [place] ? ? UR ? Oxycodone 0, N/F 25 Final [facility] NG/mL NG/mL Health: [address], [place] ? ? UR ? Oxymorphone 0, N/F 100 Final [facility] NG/mL NG/mL Health: [address], [place] ? ? UR ? Pcp 0, N/F 50 Final [facility] NG/mL NG/mL Health: [address], [place] ? ? UR ? Temazepam 0, N/F 50 Final [facility] NG/mL NG/mL Health: [address], [place] ? ? UR ? Tramadol 0, N/F 100 Final [facility] NG/mL NG/mL Health: [address], [place] ? ? UR ? Methylphenidate 0, N/F 50 Final [facility] NG/mL NG/mL Health: [address], [place] Past Encounters None recorded. Social History None recorded. Vaccine List None recorded. Plan of Care Reminders Provider Appointments None recorded. ? ? Lab None recorded. ? ? Referral None recorded. ? ? Procedures None recorded. ? ? Surgeries None recorded. ? ? Imaging None recorded. ? ? Vitals Blood Pressure 130/82 mm[Hg]
--- NOTE | 2022-04-24 14:53 | ED.SKABFB ---
HPI - Skin/Abscess/Foreign Bdy General Chief complaint: General Medical Stated complaint: R big toe infection Time Seen by Provider: 04/24/22 14:21 Source: patient and family (Spouse at bedside) Mode of arrival: ambulatory Limitations: no limitations History of Present Illness HPI narrative: 36-year-old male presenting to the ER with complaints of right great toe pain/swelling over the past week and a half. He reports that he had an ingrown toenail and pustular lesion to that area therefore he used a razor blade to incise the pustular area. He reports small amount of pus was removed although since then he has had some redness and he is concerned for possible infection. He denies any fevers, history of MRSA, any paresthesias, chills or redness going up the foot/leg or any other symptoms complaints or concerns at this time. MD complaint: other (Redness/and swelling to right great toe) Onset (ago): week(s) (1 week and half) Tetanus up to date: yes Location: R foot (Right great toe) Severity: mild Quality: aching and constant Pain Consistency: constant Relieving factors: none Exacerbating factors: palpation and movement Context: other (Ingrown toenail) Associated symptoms: denies other symptoms Treatments prior to arrival: attempted to drain pus at home Related Data Previous Rx's Medication Instructions Recorded clonazepam 0.5 mg tablet (Klonopin) 0.5 mg PO BID PRN anxiety #20 tabs 04/04/22 lamotrigine 150 mg tablet 150 mg PO BID #60 tabs 04/04/22 (Lamictal) acetaminophen 500 mg tablet 1,000 mg PO QID PRN fever or pain 04/24/22 (Tylenol Extra Strength) #14 tabs cephalexin 500 mg capsule 500 mg PO Q6H 10 days #40 caps 04/24/22 doxycycline monohydrate 100 mg 100 mg PO BID 10 days #20 tabs 04/24/22 tablet ibuprofen 800 mg tablet 800 mg PO Q8H PRN pain #14 tabs 04/24/22 Allergies Allergy/AdvReac Type Severity Reaction Status Date / Time No Known Allergies Allergy Verified 04/04/22 03:17 [No Known Allergies*] Review of Systems Review of Systems: Constitutional : Denies history of same, Denies any other sites involved, Denies IV drug use, Denies history of MRSA, Denies swollen glands, Denies injury, Denies Fever, Denies Chills, No Sig Pain, Denies Systemic symptoms Cardiovascular : No Chest Pain, No SOB Respiratory : No Dyspnea Gastrointestinal : No abdominal pain Musculoskeletal : No Joint Swelling Skin : + surrounding erythema and tenderness palpation and soft tissue swelling to right great toe, no abscess, No skin laceration, No Foreign bodies, No spreading rash, Denies bites, Denies discharge, Neuro : No Weakness, No Numbness/tingling Psych : No SI/HI/thoughts of self injury Yes all other systems are reviewed and are negative [facility] Past Medical History Attestation statement: The following information was validated with the patient. Source: old records reviewed and nursing notes reviewed Social History Social History Advance Directives: No Advance Directives Information Provided: Yes Physical Exam Vital Signs: Vital Signs: Last Vital Signs Temp 98.0 F 04/24/22 12:10 Pulse 70 04/24/22 12:10 Resp 18 04/24/22 12:10 BP 169/85 H 04/24/22 12:10 Pulse Ox 98 04/24/22 12:10 O2 Del Method 04/24/22 12:10 BMI result Body Mass Index 33.5 vital signs have been reviewed as normal and appeared to be correct. Blood pressure normal Heart rate normal. Respiration rate normal. Temperature normal. Oxygen saturation normal. Appearance: Alert. Oriented X3. No acute distress. Head: Normal external exam. Normocephalic. Atraumatic. Eyes: PERRLA. EOMI. Conjunctiva and sclera normal. Eyelids normal. ENT: Pharynx normal. Uvula midline. Moist mucous membranes. Neck: Normal inspection. Neck supple. FROM. CVS: Normal heart rate and rhythm. Respiratory: No respiratory distress. Painless inspiration. Skin: Skin warm and dry. Normal skin color. Normal skin turgor. To right great toe patient has mild surrounding erythema and tenderness palpation and mild soft tissue swelling. No necrosis noted. No streaking is noted. No obvious abscess is noted. No additional rashes/lesions/lacerations noted. Extremities: No lower extremity edema or calf tenderness is noted. Extremities exhibit normal range of motion. Extremities nontender. Neuro: Oriented X 3. No motor deficit. No sensory deficit. Reflexes normal. Normal steady gait. No focal neuro deficits noted. Vascular: + 2 distal pedal pulses/+2 dorsalis pedis b/l. Normal cap refill. No cyanosis noted lower extremity toes nails. Course Course Course Narrative: 36-year-old male presenting with a cellulitis infection to right great toe after he had a ingrown toenail that he removed himself and then I indeed a small abscess with a razor blade approximately 1 and half week ago. Denies any fevers, chills, history of MRSA or any other symptoms complaints or concerns. On exam he is noted to have some cellulitis. No streaking or fluctuance noted at this time. I offered x-ray although patient is refusing. Therefore at this time will DC home with doxycycline Keflex and Tylenol and instructions return if any new or worsening symptoms follow up with primary care provider. Patient with spouse at bedside understand agree this plan. Medical Decision Making Independent Historian Clinical information obtained from an independent historian. History obtained from or confirmed by: Spouse Prescription Management I considered prescription management with: Pain Medication (Tylenol for pain and Motrin for inflammation) and Antibiotic (Doxycycline and Keflex for cellulitis of right great toe) Discharge Plan Discharge Clinical Impression: Cellulitis of great toe, right Patient Disposition: Home, Self-Care Instructions: Cellulitis (ED) Prescriptions: New doxycycline monohydrate 100 mg tablet 100 mg PO BID 10 Days Qty: 20 0RF cephalexin 500 mg capsule 500 mg PO Q6H 10 Days Qty: 40 0RF acetaminophen [Tylenol Extra Strength] 500 mg tablet 1,000 mg PO QID PRN (Reason: fever or pain) Qty: 14 0RF ibuprofen 800 mg tablet 800 mg PO Q8H PRN (Reason: pain) Qty: 14 0RF No Action lamotrigine [Lamictal] 150 mg tablet 150 mg PO BID Qty: 60 0RF clonazepam [Klonopin] 0.5 mg tablet 0.5 mg PO BID PRN (Reason: anxiety) Qty: 20 0RF Referrals: José Antonio Arrington [Physician] - (Call to make a follow-up appointment)
[2022-04-24] MEDS: Ibuprofen 800 MG TABLET PO (15:15)
== END 2022-04-24 15:22 | disposition home or self-care (01) ==
PROVIDERS: Emergency Provider Emergency Medicine
DX: L03.031 Cellulitis of right toe (principal); M79.674 Pain in right toe(s)
CPT/HCPCS: 99283

== ENCOUNTER 2022-06-06 13:31 | Emergency (ER) | payer MEDICAID, SELFPAY ==
--- NOTE | 2022-06-06 14:00 | ED.GENADULT ---
HPI - General Adult General Chief complaint: Extremity Injury, Lower <LIZANDRO Child - Last Filed: 06/06/22 14:05> Stated complaint: throbbing in feet <LIZANDRO Child - Last Filed: 06/06/22 14:05> Time Seen by Provider: 06/06/22 17:06 <LIZANDRO Child - Last Filed: 06/06/22 14:05> Source: patient <Fatuma Calderón NP - Last Filed: 06/06/22 18:19> Mode of arrival: ambulatory <Fatuma Calderón NP - Last Filed: 06/06/22 18:19> Limitations: no limitations <Fatuma Calderón NP - Last Filed: 06/06/22 18:19> History of Present Illness HPI narrative: Patient is a 36-year-old male with reported history of IVDU presenting with complaint of right great toe erythema and pain as well as bullae between MTP joints on platar surface of both feet. He states that he was recently treated with antibiotics for cellulitis of the same toe. He denies any fevers or discharge/drainage from toe. He reports that he is currently unhoused and is ambulatory for the majority of the day. States that his bullae developed after walking in the rain while wearing Crocs for several days. He has not attempted any OTC treatment for his symptoms. <Fatuma Calderón NP - Last Filed: 06/06/22 18:19> Related Data Home medications: Previous Rx's Medication Instructions Recorded clonazepam 0.5 mg tablet (Klonopin) 0.5 mg PO BID PRN anxiety #20 tabs 04/04/22 lamotrigine 150 mg tablet 150 mg PO BID #60 tabs 04/04/22 (Lamictal) acetaminophen 500 mg tablet 1,000 mg PO QID PRN fever or pain 04/24/22 (Tylenol Extra Strength) #14 tabs cephalexin 500 mg capsule 500 mg PO Q6H 10 days #40 caps 04/24/22 doxycycline monohydrate 100 mg 100 mg PO BID 10 days #20 tabs 04/24/22 tablet ibuprofen 800 mg tablet 800 mg PO Q8H PRN pain #14 tabs 04/24/22 acetaminophen 500 mg capsule 1,000 mg PO Q6H PRN fever or pain 06/06/22 #14 caps cephalexin 500 mg capsule 500 mg PO QID #28 caps 06/06/22 doxycycline hyclate 100 mg capsule 100 mg PO BID #20 caps 06/06/22 <LIZANDRO Child - Last Filed: 06/06/22 14:05> Allergies/adverse reactions: Allergies Allergy/AdvReac Type Severity Reaction Status Date / Time No Known Allergies Allergy Verified 06/06/22 14:04 [No Known Allergies*] <LIZANDRO Child - Last Filed: 06/06/22 14:05> Review of Systems Review of Systems: Yes all other systems are reviewed and are negative <Fatuma Calderón NP - Last Filed: 06/06/22 18:19> [facility] Social History Social History: Social History Advance Directives: No Advance Directives Information Provided: No <LIZANDRO Chlid - Last Filed: 06/06/22 14:05> Physical Exam ED Vital Signs: Vital Signs - 24 hr 06/06/22 14:01 Temperature 96.9 F Pulse Rate 96 Respiratory Rate 18 Blood Pressure 101/75 Pulse Oximetry 95 Oxygen Delivery Method Room Air BMI result Body Mass Index 32.8 <LIZANDRO Child - Last Filed: 06/06/22 14:05> Vital Signs - 24 hr 06/06/22 14:01 Temperature 96.9 F Pulse Rate 96 Respiratory Rate 18 Blood Pressure 101/75 Pulse Oximetry 95 Oxygen Delivery Method Room Air BMI result Body Mass Index 32.8 <Fatuma Calderón NP - Last Filed: 06/06/22 18:19> Appearance: Alert. Oriented X3. No acute distress. Head: normocephalic, atraumatic. Eyes: Pupils equal, round and reactive to light. ENT: Pharynx normal. No tonsillar swelling or exudate. Neck: Normal inspection. Neck supple. CVS: Normal heart rate and rhythm. Pulses normal. Respiratory: No respiratory distress. Breath sounds normal. Skin: Right great toe erythematous with slight calor, no discharge or drainage. Bullae to plantar surface of bilateral feet without rupture, without surrounding erythema or calor, between 1st and 2nd MTP joints.No necrosis, no streaking. No induration or fluctuance. Skin warm and dry. Normal skin color. Normal skin turgor. No rashes. Extremities: No tenderness to palpation of IP joint of right great toe. No lower extremity edema. No joint swelling. Neuro/psych: Oriented X 3. No motor deficit. No sensory deficit. CN II-XII intact. Normal speech and cognition. <Fatuma Calderón NP - Last Filed: 06/06/22 18:19> Course Course Course Narrative: This is an RME: Additional HPI, ROS, PE not included below will be deferred to primary provider. 36 year old male presents with sores on the feet and toes that have been bothering his for 2 weeks. Patient describes the pain as pounding and it is a 3/10. Patient denies tobacco use, endorses IV drug use. Denies IV use on the affected foot. Patient reports he is recently homeless and requests help with resources. PE: erythema to toes and verrucae on bilateral feet. Plan: basic labs <LIZANDRO Child - Last Filed: 06/06/22 14:05> Medical Decision Making Medical Decision Making MDM Narrative: 36-year-old male presenting with right great toe cellulitis as well as noninfected bullae to bilateral feet. Differentials include gout, osteomyelitis, septic arthritis, necrotizing fasciitis. Nontoxic appearing, VSS, afebrile, low concern for need for IV antibiotics. Labs unremarkable. No lymphangitic spread visible, no fluid pockets, fluctuance, or concern for abscess. No immune compromise, history of MRSA, pain out of proportion, or rapid progression. Treating patient with doxycycline and Keflex, Tylenol for pain. Advised patient to soak foot in warm water with salt several times daily, keep feet open to air when not ambulating, monitor feet daily for any worsening symptoms. Instructed patient to change socks frequently in order to keep them dry. Return precautions discussed with patient at bedside. <Fatuma Calderón NP - Last Filed: 06/06/22 18:19> Differential Diagnosis Differential Diagnoses: The differential diagnosis associated with the presentation includes <Fatuma Calderón NP - Last Filed: 06/06/22 18:19> See above note. <Fatuma Calderón NP - Last Filed: 06/06/22 18:19> Lab Data MDM Lab Attestation statement: I reviewed the patient's lab results. <Fatuma Calderón NP - Last Filed: 06/06/22 18:19> Result Diagrams: 06/06/22 15:22 06/06/22 15:22 <LIZANDRO Child - Last Filed: 06/06/22 14:05> Labs: Lab Results 06/06/22 06/06/22 06/06/22 Range/Units 15:22 15:22 15:22 WBC 5.8 (4.8-10.8) X10*3/uL RBC 4.07 L (4.60-5.80) X10*6/uL Hgb 13.7 L (14.0-18.0) g/dl Hct 40.4 L (42.0-52.0) % MCV 99.3 H (80.0-98.0) fL MCH 33.7 H (27.0-33.0) pg MCHC 33.9 (31.0-36.0) g/dl RDW 12.5 (11.0-16.0) % Plt Count 169 (160-400) X10*3/uL MPV 9.9 (9.4-12.4) fL Immature Gran % (Auto) 0.2 (0.0-0.4) % Neut % (Auto) 60.4 (45-73) % Lymph % (Auto) 27.8 (20-40) % [place] % (Auto) 9.5 (2-11) % Eos % (Auto) 1.9 (0-4) % Baso % (Auto) 0.2 (0-2) % Lymph # (Auto) 1.6 (1.2-4.9) X10*3/uL [place] # (Auto) 0.6 (0.1-1.2) X10*3/uL Eos # (Auto) 0.1 (0.0-0.4) X10*3/uL Baso # (Auto) 0.0 (0.0-0.2) X10*3/uL Abs Immat Gran (auto) 0.01 (0.00-0.03) X10*3/uL Absolute Neuts (auto) 3.5 (2.0-8.3) x10*3/uL Absolute Nucleated RBC 0.000 (0.0-0.012) X10*3/uL Nucleated RBC % (auto) 0.0 (0.0-0.2) /100WBC Sodium 136 (135-145) mmol/L Potassium 4.4 (3.3-5.1) mmol/L Chloride 104 (96-108) mmol/L Carbon Dioxide 22 (22-29) mmol/L Anion Gap 14 (12-20) BUN 12 (9-16) mg/dL Creatinine 0.89 (0.5-1.4) mg/dL Estim Creat Clear Calc 143.8 Estimated GFR > 60 Random Glucose 102 (60-115) mg/dL Calcium 9.1 D (8.4-10.2) mg/dL Magnesium 2.0 (1.6-2.6) mg/dL Total Bilirubin 1.7 H (0.0-1.0) mg/dL AST 139 H (5-37) U/L ALT 124 H (0-40) U/L Alkaline Phosphatase 123 H (39-117) U/L Total Protein 7.0 (6.5-8.0) g/dL Albumin 4.0 (3.5-5.0) g/dL Ethyl Alcohol < 10 mg/dL <LIZANDRO Child - Last Filed: 06/06/22 14:05> Lab Results 06/06/22 06/06/22 06/06/22 Range/Units 15:22 15:22 15:22 WBC 5.8 (4.8-10.8) X10*3/uL RBC 4.07 L (4.60-5.80) X10*6/uL Hgb 13.7 L (14.0-18.0) g/dl Hct 40.4 L (42.0-52.0) % MCV 99.3 H (80.0-98.0) fL MCH 33.7 H (27.0-33.0) pg MCHC 33.9 (31.0-36.0) g/dl RDW 12.5 (11.0-16.0) % Plt Count 169 (160-400) X10*3/uL MPV 9.9 (9.4-12.4) fL Immature Gran % (Auto) 0.2 (0.0-0.4) % Neut % (Auto) 60.4 (45-73) % Lymph % (Auto) 27.8 (20-40) % [place] % (Auto) 9.5 (2-11) % Eos % (Auto) 1.9 (0-4) % Baso % (Auto) 0.2 (0-2) % Lymph # (Auto) 1.6 (1.2-4.9) X10*3/uL [place] # (Auto) 0.6 (0.1-1.2) X10*3/uL Eos # (Auto) 0.1 (0.0-0.4) X10*3/uL Baso # (Auto) 0.0 (0.0-0.2) X10*3/uL Abs Immat Gran (auto) 0.01 (0.00-0.03) X10*3/uL Absolute Neuts (auto) 3.5 (2.0-8.3) x10*3/uL Absolute Nucleated RBC 0.000 (0.0-0.012) X10*3/uL Nucleated RBC % (auto) 0.0 (0.0-0.2) /100WBC Sodium 136 (135-145) mmol/L Potassium 4.4 (3.3-5.1) mmol/L Chloride 104 (96-108) mmol/L Carbon Dioxide 22 (22-29) mmol/L Anion Gap 14 (12-20) BUN 12 (9-16) mg/dL Creatinine 0.89 (0.5-1.4) mg/dL Estim Creat Clear Calc 143.8 Estimated GFR > 60 Random Glucose 102 (60-115) mg/dL Calcium 9.1 D (8.4-10.2) mg/dL Magnesium 2.0 (1.6-2.6) mg/dL Total Bilirubin 1.7 H (0.0-1.0) mg/dL AST 139 H (5-37) U/L ALT 124 H (0-40) U/L Alkaline Phosphatase 123 H (39-117) U/L Total Protein 7.0 (6.5-8.0) g/dL Albumin 4.0 (3.5-5.0) g/dL Ethyl Alcohol < 10 mg/dL <Fatuma Calderón NP - Last Filed: 06/06/22 18:19> Prescription Management I considered prescription management with: Pain Medication (tylenol) and Antibiotic (doxycycline and keflex) <Fatuma Calderón NP - Last Filed: 06/06/22 18:19> Social Determinants Patient?s care significantly limited by Social Determinants of Health including: Inadequate housing <Fatuma Calderón NP - Last Filed: 06/06/22 18:19> Discharge Plan Discharge Clinical Impression: Cellulitis of great toe of right foot, Skin bulla <LIZANDRO Child - Last Filed: 06/06/22 14:05> Patient Disposition: Home, Self-Care <LIZANDRO Child - Last Filed: 06/06/22 14:05> Instructions: Cellulitis (DC), Blister (ED) <LIZANDRO Child - Last Filed: 06/06/22 14:05> Additional Instructions: You are being prescribed antibiotics for an infection in your right toe. You should monitor your toe daily and return for any worsening redness, streaking of redness towards your foot, thick yellow drainage, or fever. You were also seen for blisters to both of her feet. As discussed, do not attempt to puncture or open the blisters, as this can cause an infection. You should soak your feet in warm salt water several times daily and allow them to be open to air as much as possible. Change your socks frequently if they become wet. If you need assistance with housing, you can call , which is the [facility] and housing. <LIZANDRO Child Last Filed: 06/06/22 14:05> Prescriptions: New doxycycline hyclate 100 mg capsule 100 mg PO BID Qty: 20 0RF cephalexin 500 mg capsule 500 mg PO QID Qty: 28 0RF acetaminophen 500 mg capsule 1,000 mg PO Q6H PRN (Reason: fever or pain) Qty: 14 0RF No Action lamotrigine [Lamictal] 150 mg tablet 150 mg PO BID Qty: 60 0RF clonazepam [Klonopin] 0.5 mg tablet 0.5 mg PO BID PRN (Reason: anxiety) Qty: 20 0RF doxycycline monohydrate 100 mg tablet 100 mg PO BID 10 Days Qty: 20 0RF cephalexin 500 mg capsule 500 mg PO Q6H 10 Days Qty: 40 0RF acetaminophen [Tylenol Extra Strength] 500 mg tablet 1,000 mg PO QID PRN (Reason: fever or pain) Qty: 14 0RF ibuprofen 800 mg tablet 800 mg PO Q8H PRN (Reason: pain) Qty: 14 0RF <LIZANDRO Child - Last Filed: 06/06/22 14:05>
[2022-06-06 14:01] VITALS: BP 101/75; PULSE 96; RESP 18; TEMP 36.1; O2SAT 95; BMI 32.8
[2022-06-06 15:26] LABS: MANUAL DIFF FLAG NO
[2022-06-06 15:27] LABS: Basophils Percent Auto 0.2 % (0-2); Eosinophils Absolute Auto 0.1 X10*3/uL (0.0-0.4); Eosinophils Percent Auto 1.9 % (0-4); Hematocrit 40.4 % (42.0-52.0); Hemoglobin 13.7 g/dl (14.0-18.0); Imm Gran Abs Auto 0.01 X10*3/uL (0.00-0.03); Imm Gran Pct Auto 0.2 % (0.0-0.4); Lymphocytes Absolute Auto 1.6 X10*3/uL (1.2-4.9); Lymphocytes Percent Auto 27.8 % (20-40); Mean Corpuscular HGB Conc 33.9 g/dl (31.0-36.0); Mean Corpuscular Hemoglobin 33.7 pg (27.0-33.0); Mean Corpuscular Volume 99.3 fL (80.0-98.0); Mean Platelet Volume 9.9 fL (9.4-12.4); Monocytes Absolute Auto 0.6 X10*3/uL (0.1-1.2); Monocytes Percent Auto 9.5 % (2-11); Neutrophils Absolute Auto 3.5 x10*3/uL (2.0-8.3); Neutrophils Percent Auto 60.4 % (45-73); Platelet Count 169 X10*3/uL (160-400); Red Blood Count 4.07 X10*6/uL (4.60-5.80); Red Cell Distribution Width 12.5 % (11.0-16.0); White Blood Count 5.8 X10*3/uL (4.8-10.8)
[2022-06-06 16:02] LABS: Ethanol < 10 mg/dL
[2022-06-06 16:24] LABS: Alanine Aminotransferase 124 U/L (0-40); Alkaline Phosphatase 123 U/L (39-117); Anion Gap 14 (12-20); Aspartate Amino Transferase 139 U/L (5-37); Bilirubin Total 1.7 mg/dL (0.0-1.0); Blood Urea Nitrogen 12 mg/dL (9-16); Calcium 9.1 mg/dL (8.4-10.2); Carbon Dioxide 22 mmol/L (22-29); Chloride 104 mmol/L (96-108); Creatinine Clr Calc Pharmacy 143.8; Estimated Glomerular Filt Rate > 60; Glucose Random 102 mg/dL (60-115); Potassium 4.4 mmol/L (3.3-5.1); Sodium 136 mmol/L (135-145)
== END 2022-06-06 18:23 | disposition home or self-care (01) ==
PROVIDERS: Physician Assistant; Emergency Provider Student in an Organized Health Care Education/Training Program
DX: L03.031 Cellulitis of right toe (principal); R23.8 Other skin changes; Z79.899 Other long term (current) drug therapy
CPT/HCPCS: 36415; 80053; 82077; 83735; 85025; 99282; 99283

== ENCOUNTER 2022-06-13 21:24 | Emergency (ER) | payer MEDICAID, SELFPAY ==
--- NOTE | 2022-06-13 | ECG_ITS ---
Test Reason : CHEST PAIN Blood Pressure : / mmHG Vent. Rate : 087 BPM Atrial Rate : 087 BPM P-R Int : 148 ms QRS Dur : 122 ms QT Int : 414 ms P-R-T Axes : 069 054 058 degrees QTc Int : 498 ms Normal sinus rhythm Non-specific intra-ventricular conduction delay Borderline ECG When compared with ECG of 04-SEP-2021 23:42, No significant change was found Referred By: Generic ED Physician Electronically Signed By:ERIN KATE MD
--- NOTE | ~2022-06-13 | XR_ITS ---
EXAMINATION: XR CHEST CLINICAL INFORMATION: Chest pain COMPARISON: None available. TECHNIQUE: 2 views of the chest were obtained. FINDINGS: No significant abnormality is noted involving the heart, lungs, mediastinum, bony thorax or soft tissues. XR/XR chest 2V IMPRESSION: Unremarkable examination.
[2022-06-13 21:45] VITALS: BP 151/81; PULSE 106; RESP 18; TEMP 36.1; O2SAT 99; BMI 25.5
--- NOTE | 2022-06-13 21:50 | ECG_ITS ---
Test Reason : chest pain Blood Pressure : / mmHG Vent. Rate : 088 BPM Atrial Rate : 088 BPM P-R Int : 138 ms QRS Dur : 076 ms QT Int : 340 ms P-R-T Axes : 048 029 007 degrees QTc Int : 411 ms Normal sinus rhythm Possible Left atrial enlargement Borderline ECG When compared with ECG of 04-SEP-2021 23:42, Questionable change in QRS duration Referred By: Generic ED Physician Electronically Signed By:
[2022-06-13 22:37] LABS: Basophils Percent Auto 0.1 % (0-2); Eosinophils Percent Auto 0.4 % (0-4); Hematocrit 41.3 % (42.0-52.0); Hemoglobin 14.3 g/dl (14.0-18.0); Imm Gran Abs Auto 0.02 X10*3/uL (0.00-0.03); Imm Gran Pct Auto 0.3 % (0.0-0.4); Lymphocytes Absolute Auto 2.2 X10*3/uL (1.2-4.9); Lymphocytes Percent Auto 30.1 % (20-40); MANUAL DIFF FLAG NO; Mean Corpuscular HGB Conc 34.6 g/dl (31.0-36.0); Mean Corpuscular Hemoglobin 33.6 pg (27.0-33.0); Mean Corpuscular Volume 97.2 fL (80.0-98.0); Mean Platelet Volume 9.6 fL (9.4-12.4); Monocytes Absolute Auto 0.6 X10*3/uL (0.1-1.2); Monocytes Percent Auto 8.3 % (2-11); Neutrophils Absolute Auto 4.5 x10*3/uL (2.0-8.3); Neutrophils Percent Auto 60.8 % (45-73); Platelet Count 159 X10*3/uL (160-400); Red Blood Count 4.25 X10*6/uL (4.60-5.80); Red Cell Distribution Width 12.6 % (11.0-16.0); White Blood Count 7.5 X10*3/uL (4.8-10.8)
[2022-06-13 22:50] LABS: Anion Gap 17 (12-20); Blood Urea Nitrogen 11 mg/dL (9-16); Calcium 9.7 mg/dL (8.4-10.2); Carbon Dioxide 24 mmol/L (22-29); Chloride 105 mmol/L (96-108); Creatinine Clr Calc Pharmacy 107.5; Estimated Glomerular Filt Rate > 60; Glucose Random 91 mg/dL (60-115); Potassium 4.1 mmol/L (3.3-5.1); Sodium 142 mmol/L (135-145)
[2022-06-13 22:58] LABS: Troponin-I High Sensitivity 2.7 ng/L (<3.5-35.0)
[2022-06-14 00:17] VITALS: BP 132/83; PULSE 94; RESP 17; TEMP 36.6; O2SAT 95
--- NOTE | 2022-06-14 01:34 | ED_ITS ---
HPI - Chest Pain General Chief Complaint: Chest Pain Stated Complaint: Chest/rib pain Time Seen by Provider: 06/14/22 01:26 Source: patient Mode of arrival: ambulatory Limitations: no limitations History of Present Illness HPI narrative: Patient comes in the emergency room complaining of 2 months of right-sided chest pain. Patient states it hurts worse whenever he moves certain ways or if he takes deep breaths. Patient denies chest pain otherwise. Patient has fever chills. Patient denies any trauma. Patient states that he has had rib fractures in the past but nothing recent. Related Data Previous Rx's Medication Instructions Recorded clonazepam 0.5 mg tablet (Klonopin) 0.5 mg PO BID PRN anxiety #20 tabs 04/04/22 lamotrigine 150 mg tablet 150 mg PO BID #60 tabs 04/04/22 (Lamictal) acetaminophen 500 mg tablet 1,000 mg PO QID PRN fever or pain 04/24/22 (Tylenol Extra Strength) #14 tabs cephalexin 500 mg capsule 500 mg PO Q6H 10 days #40 caps 04/24/22 doxycycline monohydrate 100 mg 100 mg PO BID 10 days #20 tabs 04/24/22 tablet ibuprofen 800 mg tablet 800 mg PO Q8H PRN pain #14 tabs 04/24/22 acetaminophen 500 mg capsule 1,000 mg PO Q6H PRN fever or pain 06/06/22 #14 caps cephalexin 500 mg capsule 500 mg PO QID #28 caps 06/06/22 doxycycline hyclate 100 mg capsule 100 mg PO BID #20 caps 06/06/22 ibuprofen 600 mg tablet 600 mg PO BID PRN pain #14 tabs 06/14/22 Allergies Allergy/AdvReac Type Severity Reaction Status Date / Time No Known Allergies Allergy Verified 06/06/22 14:04 [No Known Allergies*] Review of Systems Review of Systems: Constitutional : No Weight loss, No Fever, No Chills, No Night Sweats, No Fatigue, No Malaise ENT/Mouth : No Hearing loss, No Ear Pain, No Nasal Congestion, No Sinus Pain, No Hoarseness, No sore throat, No Rhinorrhea, No Swallowing Difficulty Eyes: No Eye Pain, No Swelling, No Redness, No Foreign Body, No Discharge, No Vision Changes Cardiovascular : No Chest Pain, No SOB, No Dyspnea on Exertion, No Orthopnea, No Edema, No Palpitations Respiratory : No Cough, No Sputum, No Wheezing, No Smoke Exposure, No Dyspnea Gastrointestinal : No Nausea, No Vomiting, No Diarrhea, No Constipation, No abdominal Pain, No Hematochezia, No Melena Genitourinary : no irregular bleeding, No Dysuria, No Urinary Frequency, No Hematuria, No Urinary Incontinence, No Urgency, No Flank Pain, No Urinary Flow Changes, No Hesitancy Musculoskeletal : No joint pain, No Myalgias, No Joint Swelling Skin : No Skin Lesions, No rash Neuro : No Weakness, No Numbness, No Paresthesias, No Loss of Consciousness, No Dizziness, No Headache Psych : No Anxiety/Panic, No Depression, No SI/HI/AH/VH, No Social Issues, Heme/Lymph: No Bruising, No Bleeding,No Lymphadenopathy Endocrine : No Polyuria, No Polydipsia, No Temperature Intolerance [facility] Past Medical History Medical History (Updated 06/14/22 @ 01:38 by Swathi Ziegler MD) Substance abuse Social History Social History Advance Directives: No Advance Directives Information Provided: Yes Physical Exam Vital Signs: Vital Signs: Last Vital Signs Temp 98 F 06/14/22 00:17 Pulse 94 06/14/22 00:17 Resp 17 06/14/22 00:17 BP 132/83 06/14/22 00:17 Pulse Ox 95 06/14/22 00:17 O2 Del Method Room Air 06/14/22 00:17 BMI result Body Mass Index 25.5 Const: Other: Appearance: Alert. Oriented X3. No acute distress. Eyes: Pupils equal, round and reactive to light. ENT: Pharynx normal. Neck: Normal inspection. Neck supple. No lymph nodes noted. No crepitus CVS: Normal heart rate and rhythm. Pulses normal. Normal S1 and S2 Respiratory: No respiratory distress. Breath sounds normal. No Wheezing. No rales Abdomen: Soft and nontender. No rigidity. No distention. Musculoskeletal: Reproducible Pain to palpation on the right side of the chest Skin: Skin warm and dry. Normal skin color. Normal skin turgor. Extremities: No lower extremity edema. No Lacerations. No Rash Neuro: Oriented X 3. No motor deficit. No sensory deficit. Moving all extremities. No slurred speech. CN 2 through 12 grossly intact Psych: calm, cooperative, normal affect Medical Decision Making Medical Decision Making [facility] Narrative: -I discussed with the patient that his pain is likely musculoskeletal, versus pleurisy. -EKG my interpretation: Normal sinus rhythm, heart rate 87, no ST segment depression or elevation, no T-wave inversion, QTC 498 -troponin negative, blood cell count negative -my interpretation of chest x-ray: No pneumothorax, no rib fractures, no infil trate -patient was given 1 dose of IM Toradol Lab Data [facility] Lab Attestation statement: I reviewed the patient's lab results. 06/13/22 22:32 06/13/22 22:32 Labs: Lab Results 06/13/22 06/13/22 06/13/22 Range/Units 22:32 22:32 22:32 WBC 7.5 (4.8-10.8) X10*3/uL RBC 4.25 L (4.60-5.80) X10*6/uL Hgb 14.3 (14.0-18.0) g/dl Hct 41.3 L (42.0-52.0) % MCV 97.2 (80.0-98.0) fL MCH 33.6 H (27.0-33.0) pg MCHC 34.6 (31.0-36.0) g/dl RDW 12.6 (11.0-16.0) % Plt Count 159 L (160-400) X10*3/uL MPV 9.6 (9.4-12.4) fL Immature Gran % (Auto) 0.3 (0.0-0.4) % Neut % (Auto) 60.8 (45-73) % Lymph % (Auto) 30.1 (20-40) % [place] % (Auto) 8.3 (2-11) % Eos % (Auto) 0.4 (0-4) % Baso % (Auto) 0.1 (0-2) % Lymph # (Auto) 2.2 (1.2-4.9) X10*3/uL [place] # (Auto) 0.6 (0.1-1.2) X10*3/uL Eos # (Auto) 0.0 (0.0-0.4) X10*3/uL Baso # (Auto) 0.0 (0.0-0.2) X10*3/uL Abs Immat Gran (auto) 0.02 (0.00-0.03) X10*3/uL Absolute Neuts (auto) 4.5 (2.0-8.3) x10*3/uL Absolute Nucleated RBC 0.000 (0.0-0.012) X10*3/uL Nucleated RBC % (auto) 0.0 (0.0-0.2) /100WBC Sodium 142 (135-145) mmol/L Potassium 4.1 (3.3-5.1) mmol/L Chloride 105 (96-108) mmol/L Carbon Dioxide 24 (22-29) mmol/L Anion Gap 17 (12-20) BUN 11 (9-16) mg/dL Creatinine 0.99 (0.5-1.4) mg/dL Estim Creat Clear Calc 107.5 Estimated GFR > 60 Random Glucose 91 (60-115) mg/dL Calcium 9.7 D (8.4-10.2) mg/dL Troponin I High Sens 2.7 (<3.5-35.0) ng/L Radiology Impression Discussion of test interpretation with radiology: I have reviewed the radiologist's reading. Radiologist Impression: No significant abnormality is noted involving the heart, lungs, mediastinum, bony thorax or soft tissues. XR/XR chest 2V IMPRESSION: Unremarkable examination. Discharge Plan Discharge Clinical Impression: Musculoskeletal chest pain Patient Disposition: Home, Self-Care Instructions: Thoracic Pain (ED) Additional Instructions: Please follow-up with your primary care physician tomorrow. If you have any worsening or new symptoms, please return to the emergency room or call 911 Prescriptions: New ibuprofen 600 mg tablet 600 mg PO BID PRN (Reason: pain) Qty: 14 0RF No Action lamotrigine [Lamictal] 150 mg tablet 150 mg PO BID Qty: 60 0RF clonazepam [Klonopin] 0.5 mg tablet 0.5 mg PO BID PRN (Reason: anxiety) Qty: 20 0RF doxycycline monohydrate 100 mg tablet 100 mg PO BID 10 Days Qty: 20 0RF cephalexin 500 mg capsule 500 mg PO Q6H 10 Days Qty: 40 0RF acetaminophen [Tylenol Extra Strength] 500 mg tablet 1,000 mg PO QID PRN (Reason: fever or pain) Qty: 14 0RF ibuprofen 800 mg tablet 800 mg PO Q8H PRN (Reason: pain) Qty: 14 0RF doxycycline hyclate 100 mg capsule 100 mg PO BID Qty: 20 0RF cephalexin 500 mg capsule 500 mg PO QID Qty: 28 0RF acetaminophen 500 mg capsule 1,000 mg PO Q6H PRN (Reason: fever or pain) Qty: 14 0RF
[2022-06-14] MEDS: Ketorolac Tromethamine 60 MG/2 ML VIAL IM (01:43)
== END 2022-06-14 01:46 | disposition home or self-care (01) ==
PROVIDERS: Emergency Provider Emergency Medicine
DX: R07.89 Other chest pain (principal); M79.18 Myalgia, other site; Z79.899 Other long term (current) drug therapy
CPT/HCPCS: 36415; 71046; 80048; 84484; 85025; 93005; 96372; 99284; 99285; J1885

== ENCOUNTER 2022-06-15 04:35 | Emergency (ER) | payer MEDICAID, SELFPAY ==
--- NOTE | ~2022-06-15 | XR_ITS ---
EXAMINATION: XR HAND, LEFT CLINICAL INFORMATION: Fall, cut with glass COMPARISON: None available. TECHNIQUE: PA, lateral, and oblique views of the left hand. FINDINGS: Osseous alignment is anatomic. No acute fracture is seen. Mild soft tissue swelling is suspected. No radiopaque foreign body identified. XR/XR hand LT 2V IMPRESSION: Mild soft tissue swelling without acute osseous findings.
[2022-06-15 04:41] VITALS: BP 117/73; PULSE 70; RESP 20; TEMP 36.6; O2SAT 97; BMI 33.8
[2022-06-15] MEDS: Ibuprofen 600 MG TABLET PO (05:06)
--- NOTE | 2022-06-15 05:16 | ED_ITS ---
HPI - Wound/Laceration General Chief Complaint: Wound/Laceration Stated Complaint: Lt Hand injury Time Seen by Provider: 06/15/22 05:11 Source: patient Mode of arrival: ambulatory History of Present Illness HPI narrative: Patient had few drinks last night lost balance fell broke his fall with his left hand with glass in the gravel feels glass in his left hand with small laceration no other in Related Data Previous Rx's Medication Instructions Recorded clonazepam 0.5 mg tablet (Klonopin) 0.5 mg PO BID PRN anxiety #20 tabs 04/04/22 lamotrigine 150 mg tablet 150 mg PO BID #60 tabs 04/04/22 (Lamictal) acetaminophen 500 mg tablet 1,000 mg PO QID PRN fever or pain 04/24/22 (Tylenol Extra Strength) #14 tabs cephalexin 500 mg capsule 500 mg PO Q6H 10 days #40 caps 04/24/22 doxycycline monohydrate 100 mg 100 mg PO BID 10 days #20 tabs 04/24/22 tablet ibuprofen 800 mg tablet 800 mg PO Q8H PRN pain #14 tabs 04/24/22 acetaminophen 500 mg capsule 1,000 mg PO Q6H PRN fever or pain 06/06/22 #14 caps cephalexin 500 mg capsule 500 mg PO QID #28 caps 06/06/22 doxycycline hyclate 100 mg capsule 100 mg PO BID #20 caps 06/06/22 ibuprofen 600 mg tablet 600 mg PO BID PRN pain #14 tabs 06/14/22 Allergies Allergy/AdvReac Type Severity Reaction Status Date / Time No Known Allergies Allergy Verified 06/06/22 14:04 [No Known Allergies*] Review of Systems Review of Systems: Yes all other systems are reviewed and are negative PMFSH Past Medical History Medical History Substance abuse Social History Social History Alcohol intake: current Advance Directives: No Advance Directives Information Provided: Yes Physical Exam Vital Signs: Vital Signs: Last Vital Signs Temp 97.9 F 06/15/22 04:41 Pulse 65 06/15/22 06:13 Resp 18 06/15/22 06:13 BP 158/87 H 06/15/22 06:13 Pulse Ox 98 06/15/22 06:13 O2 Del Method Room Air 06/15/22 06:13 BMI result Body Mass Index 33.8 Appearance: Al ENT: Pharynx normal. Oral Mucosa moist Neck: Normal inspection. Neck supple. CVS: Normal heart rate and rhythm. Pulses normal. Respiratory: No respiratory distress. Equal air entry bilateral, no wheezing/rales/rhonchi Abdomen: Soft and nontender. Bowel sounds are present, Skin: Skin warm and dry. Normal skin color. Normal skin turgor. Extremities: No lower extremity edema. No calf tenderness superficial laceration 0.5 cm left hand no foreign body palpable Neuro: Oriented X 3. No motor deficit. Extrem: Hand/finger images: 1. 0.5 cm laceration no foreign body palpable neurovascular intact Medications Administered Discontinued Medications Generic Name Dose Route Start Last Admin Trade Name Freq PRN Reason Stop Dose Admin Amoxicillin/Clavulanate Potassium 875 mg 06/15/22 06:09 06/15/22 06:17 Amoxicillin/Potassium Clav 875 Mg Tablet PO 06/15/22 06:10 875 mg ONCE ONE Administration Bacitracin 1 appl 06/15/22 06:09 06/15/22 06:18 Bacitracin Oint 0.9 Gm Packet TOPICAL 06/15/22 06:10 1 appl ONCE ONE Administration Protocol Diphtheria/Tetanus/Acell Pertussis 0.5 ml 06/15/22 06:09 06/15/22 06:17 Diphth,Pertus(Acell),Tet Adult 0.5 Ml Syringe IM 06/15/22 06:10 0.5 ml .ONCE ONE Administration Ibuprofen 600 mg 06/15/22 04:55 06/15/22 05:06 Ibuprofen 600 Mg Tablet PO 06/15/22 04:56 600 mg ONCE ONE Administration Lidocaine HCl 5 ml 06/15/22 06:09 06/15/22 06:18 Lidocaine Hcl 1 % Mpf 5 Ml Vial INFILTRATI 06/15/22 06:10 5 ml ONCE ONE Administration Medical Decision Making Medical Decision Making MDM Narrative: No foreign body seen in the x-ray not palpable while examining the wound. Laceration was sutured using 5-0 Vicryl patient requesting lower detox from alcohol patient used to live in [place] had Hurricaine and homeless for last 2 weeks and wants to go for detox Lab Data [facility] Lab Attestation statement: I reviewed the patient's lab results. 06/15/22 06:29 06/15/22 06:29 Labs: Lab Results 06/15/22 06/15/22 Range/Units 06:29 06:29 WBC 5.4 (4.8-10.8) X10*3/uL RBC 3.97 L (4.60-5.80) X10*6/uL Hgb 13.6 L (14.0-18.0) g/dl Hct 39.0 L (42.0-52.0) % MCV 98.2 H (80.0-98.0) fL MCH 34.3 H (27.0-33.0) pg MCHC 34.9 (31.0-36.0) g/dl RDW 12.5 (11.0-16.0) % Plt Count 152 L (160-400) X10*3/uL MPV 10.4 (9.4-12.4) fL Immature Gran % (Auto) 0.2 (0.0-0.4) % Neut % (Auto) 55.7 (45-73) % Lymph % (Auto) 31.4 (20-40) % [place] % (Auto) 11.0 (2-11) % Eos % (Auto) 1.5 (0-4) % Baso % (Auto) 0.2 (0-2) % Lymph # (Auto) 1.7 (1.2-4.9) X10*3/uL [place] # (Auto) 0.6 (0.1-1.2) X10*3/uL Eos # (Auto) 0.1 (0.0-0.4) X10*3/uL Baso # (Auto) 0.0 (0.0-0.2) X10*3/uL Abs Immat Gran (auto) 0.01 (0.00-0.03) X10*3/uL Absolute Neuts (auto) 3.0 (2.0-8.3) x10*3/uL Absolute Nucleated RBC 0.000 (0.0-0.012) X10*3/uL Nucleated RBC % (auto) 0.0 (0.0-0.2) /100WBC Sodium 138 (135-145) mmol/L Potassium 4.3 (3.3-5.1) mmol/L Chloride 104 (96-108) mmol/L Carbon Dioxide 22 (22-29) mmol/L Anion Gap 16 (12-20) BUN 10 (9-16) mg/dL Creatinine 0.74 (0.5-1.4) mg/dL Estim Creat Clear Calc 175.7 Estimated GFR > 60 Random Glucose 68 (60-115) mg/dL Calcium 9.5 (8.4-10.2) mg/dL Total Bilirubin 1.6 H (0.0-1.0) mg/dL AST 82 H (5-37) U/L ALT 71 H (0-40) U/L Alkaline Phosphatase 121 H (39-117) U/L Total Protein 7.4 (6.5-8.0) g/dL Albumin 4.2 (3.5-5.0) g/dL Ethyl Alcohol 23 mg/dL Procedures Laceration Laceration 1: Site: hand Side (If applicable): left Size (cm): 0.5 Description: linear Depth: simple, single layer Local Anesthetic: lidocaine 2% Amount of anesthesia used (mL): 1 Pre-repair: wound explored Skin layer closed with: vicryl Size (cm): 5-0 Number of sutures: 3 Technique: simple, interrupted Discharge Plan Discharge Clinical Impression: Laceration, Polysubstance abuse Patient Disposition: Still a Patient Prescriptions: No Action lamotrigine [Lamictal] 150 mg tablet 150 mg PO BID Qty: 60 0RF clonazepam [Klonopin] 0.5 mg tablet 0.5 mg PO BID PRN (Reason: anxiety) Qty: 20 0RF doxycycline monohydrate 100 mg tablet 100 mg PO BID 10 Days Qty: 20 0RF cephalexin 500 mg capsule 500 mg PO Q6H 10 Days Qty: 40 0RF acetaminophen [Tylenol Extra Strength] 500 mg tablet 1,000 mg PO QID PRN (Reason: fever or pain) Qty: 14 0RF ibuprofen 800 mg tablet 800 mg PO Q8H PRN (Reason: pain) Qty: 14 0RF doxycycline hyclate 100 mg capsule 100 mg PO BID Qty: 20 0RF cephalexin 500 mg capsule 500 mg PO QID Qty: 28 0RF acetaminophen 500 mg capsule 1,000 mg PO Q6H PRN (Reason: fever or pain) Qty: 14 0RF ibuprofen 600 mg tablet 600 mg PO BID PRN (Reason: pain) Qty: 14 0RF
--- NOTE | 2022-06-15 05:54 | PC.NURSE ---
Pt presents to ER after falling on cement and getting some glass in his hand. Pt has about a 1cm laceration on the palm of his left hand. Bleeding is controlled at this time.
[2022-06-15 06:13] VITALS: BP 158/87; PULSE 65; RESP 18; O2SAT 98
[2022-06-15] MEDS: Amoxicillin/Potassium Clav 875 MG TABLET PO (06:17)
[2022-06-15] MEDS: Diphth,Pertus(ACell),Tet Adult 0.5 ML SYRINGE IM (06:17)
[2022-06-15] MEDS: Bacitracin Oint 0.9 GM PACKET 1 APPL TOPICAL (06:18)
[2022-06-15] MEDS: Lidocaine HCl 1 % MPF 5 ML VIAL INFILTRATI (06:18)
[2022-06-15 06:33] LABS: MANUAL DIFF FLAG NO
[2022-06-15 06:35] LABS: Basophils Percent Auto 0.2 % (0-2); Eosinophils Absolute Auto 0.1 X10*3/uL (0.0-0.4); Eosinophils Percent Auto 1.5 % (0-4); Hemoglobin 13.6 g/dl (14.0-18.0); Imm Gran Abs Auto 0.01 X10*3/uL (0.00-0.03); Imm Gran Pct Auto 0.2 % (0.0-0.4); Lymphocytes Absolute Auto 1.7 X10*3/uL (1.2-4.9); Lymphocytes Percent Auto 31.4 % (20-40); Mean Corpuscular HGB Conc 34.9 g/dl (31.0-36.0); Mean Corpuscular Hemoglobin 34.3 pg (27.0-33.0); Mean Corpuscular Volume 98.2 fL (80.0-98.0); Mean Platelet Volume 10.4 fL (9.4-12.4); Monocytes Absolute Auto 0.6 X10*3/uL (0.1-1.2); Neutrophils Percent Auto 55.7 % (45-73); Platelet Count 152 X10*3/uL (160-400); Red Blood Count 3.97 X10*6/uL (4.60-5.80); Red Cell Distribution Width 12.5 % (11.0-16.0); White Blood Count 5.4 X10*3/uL (4.8-10.8)
[2022-06-15 06:49] LABS: Alanine Aminotransferase 71 U/L (0-40); Albumin Level 4.2 g/dL (3.5-5.0); Alkaline Phosphatase 121 U/L (39-117); Anion Gap 16 (12-20); Aspartate Amino Transferase 82 U/L (5-37); Bilirubin Total 1.6 mg/dL (0.0-1.0); Blood Urea Nitrogen 10 mg/dL (9-16); Calcium 9.5 mg/dL (8.4-10.2); Carbon Dioxide 22 mmol/L (22-29); Chloride 104 mmol/L (96-108); Creatinine Clr Calc Pharmacy 175.7; Estimated Glomerular Filt Rate > 60; Ethanol 23 mg/dL; Glucose Random 68 mg/dL (60-115); Potassium 4.3 mmol/L (3.3-5.1); Sodium 138 mmol/L (135-145); Total Protein 7.4 g/dL (6.5-8.0)
[2022-06-15 09:01] LABS: Amphetamine Screen Urine Not Detected (Not Detect); Barbiturates, Urine Not Detected (Not Detect); Benzodiazepines Screen Urine Not Detected (Not Detect); Cannabinoid Screen Urine Not Detected (Not Detect); Cocaine Screen Urine POSITIVE (Not Detect); Fentanyl, urine POSITIVE (Not Detect); Opiate Screen Urine POSITIVE (Not Detect); Phencyclidine Screen Urine Not Detected (Not Detect)
--- NOTE | 2022-06-15 09:50 | MHC.RECOVRN ---
Met with pt in ED15 to discuss substance use and desire for treatment. Pt reports using heroin, 1 bundle daily, as well as cocaine, IV/IM. Pt also reports 1/5 alcohol daily. Per pt, he has not been to [facility] in 10 years and would like to go to treatment. Spoke with intake at [facility], 3 male beds available. Referral sent.
--- NOTE | 2022-06-15 10:26 | MHC.RECOVRN ---
Spoke with Anne Marie at [facility], pt last dose 155 mg on 06/14 at 0747. RN aware.
--- NOTE | 2022-06-15 10:46 | HE.PHANOTE ---
Methadone confirmation form received for 155 mg last dose 06/14 from [facility]
[2022-06-15 11:27] VITALS: BP 125/76; PULSE 44; RESP 14; TEMP 36.6; O2SAT 97
[2022-06-15] MEDS: methADONE HCl 20 MG/2 ML ORAL.CONC 155 MG PO (12:48)
--- NOTE | 2022-06-15 14:29 | MHC.RECOVSUP ---
Pt accepted to [facility] for 6:30 admission. pt will have [facility] scheduled to transport him.
== END 2022-06-15 16:50 | disposition home or self-care (01) ==
PROVIDERS: Emergency Provider Internal Medicine
DX: S61.412A Laceration without foreign body of left hand, initial encounter (principal); S60.512A Abrasion of left hand, initial encounter; W01.0XXA Fall on same level from slipping, tripping and stumbling without subsequent striking against object, initial encounter; Y93.9 Activity, unspecified; Y92.9 Unspecified place or not applicable; Y99.9 Unspecified external cause status; Z79.899 Other long term (current) drug therapy; Z23 Encounter for immunization
CPT/HCPCS: 12001; 36415; 73120; 80053; 80307; 85025; 90471; 90715; 99284

== ENCOUNTER 2022-06-23 21:56 | Emergency (ER) | payer MEDICAID, SELFPAY ==
[2022-06-23 21:57] VITALS: BP 134/86; PULSE 84; RESP 20; TEMP 36.6; O2SAT 98; BMI 31.4
--- NOTE | 2022-06-23 22:51 | ED.GENADULT ---
HPI - General Adult General Chief complaint: General Medical Stated complaint: Body pain Time Seen by Provider: 06/23/22 22:31 Source: patient Mode of arrival: ambulatory Limitations: no limitations History of Present Illness HPI narrative: Patient homeless with bipolar disorder patient multiple times with multiple complaints says as white worms on his body and has pulled out ticks patient has a place to stay tonight Related Data Home Medications Medication Instructions Recorded Confirmed methadone 10 mg/mL oral syringe 155 mg PO DAILY 06/15/22 06/15/22 (FOR ORAL USE ONLY) Previous Rx's Medication Instructions Recorded clonazepam 0.5 mg tablet (Klonopin) 0.5 mg PO BID PRN anxiety #20 tabs 04/04/22 lamotrigine 150 mg tablet 150 mg PO BID #60 tabs 04/04/22 (Lamictal) acetaminophen 500 mg tablet 1,000 mg PO QID PRN fever or pain 04/24/22 (Tylenol Extra Strength) #14 tabs cephalexin 500 mg capsule 500 mg PO Q6H 10 days #40 caps 04/24/22 doxycycline monohydrate 100 mg 100 mg PO BID 10 days #20 tabs 04/24/22 tablet ibuprofen 800 mg tablet 800 mg PO Q8H PRN pain #14 tabs 04/24/22 acetaminophen 500 mg capsule 1,000 mg PO Q6H PRN fever or pain 06/06/22 #14 caps cephalexin 500 mg capsule 500 mg PO QID #28 caps 06/06/22 doxycycline hyclate 100 mg capsule 100 mg PO BID #20 caps 06/06/22 ibuprofen 600 mg tablet 600 mg PO BID PRN pain #14 tabs 06/14/22 Allergies Allergy/AdvReac Type Severity Reaction Status Date / Time No Known Allergies Allergy Verified 06/23/22 22:00 [No Known Allergies*] Review of Systems Review of Systems: Yes all other systems are reviewed and are negative PMFSH Past Medical History Medical History Substance abuse Social History Social History Alcohol intake: current Advance Directives: No Advance Directives Information Provided: No Physical Exam ED Vital Signs: Vital Signs - 24 hr 06/23/22 21:57 Temperature 97.9 F Pulse Rate 84 Respiratory Rate 20 Blood Pressure 134/86 Pulse Oximetry 98 Oxygen Delivery Method Room Air BMI result Body Mass Index 31.4 Appearance: Alert. Oriented X3. No acute distress. Anxious Eyes: PERRLA, No Nystagmus ENT: Pharynx normal. Oral Mucosa moist Neck: Normal inspection. Neck supple. CVS: Normal heart rate and rhythm. Pulses normal. Respiratory: No respiratory distress. Equal air entry bilateral, Abdomen: Soft and nontender. Bowel sounds are present, no mass palpable, no CVA tenderness Skin: Skin warm and dry. Normal skin color. Normal skin turgor. No signs of tick bite noticed no worms seen Extremities: No lower extremity edema. No calf tenderness Neuro: Oriented X 3. Medical Decision Making Medical Decision Making MDM Narrative: Patient has vague complaints homeless with anxiety with discharge patient home advised to follow up with his psychiatric Discharge Plan Discharge Clinical Impression: Homeless, Bipolar 1 disorder Patient Disposition: Home, Self-Care Instructions: Bipolar Disorder (ED) Additional Instructions: Take your medications and follow-up with your psychiatrist Prescriptions: No Action lamotrigine [Lamictal] 150 mg tablet 150 mg PO BID Qty: 60 0RF clonazepam [Klonopin] 0.5 mg tablet 0.5 mg PO BID PRN (Reason: anxiety) Qty: 20 0RF doxycycline monohydrate 100 mg tablet 100 mg PO BID 10 Days Qty: 20 0RF cephalexin 500 mg capsule 500 mg PO Q6H 10 Days Qty: 40 0RF acetaminophen [Tylenol Extra Strength] 500 mg tablet 1,000 mg PO QID PRN (Reason: fever or pain) Qty: 14 0RF ibuprofen 800 mg tablet 800 mg PO Q8H PRN (Reason: pain) Qty: 14 0RF doxycycline hyclate 100 mg capsule 100 mg PO BID Qty: 20 0RF cephalexin 500 mg capsule 500 mg PO QID Qty: 28 0RF acetaminophen 500 mg capsule 1,000 mg PO Q6H PRN (Reason: fever or pain) Qty: 14 0RF ibuprofen 600 mg tablet 600 mg PO BID PRN (Reason: pain) Qty: 14 0RF methadone 10 mg/mL Syringe 155 mg PO DAILY
[2022-06-23] MEDS: Doxycycline Monohydrate 100 MG CAPSULE PO (23:38)
== END 2022-06-23 23:40 | disposition home or self-care (01) ==
PROVIDERS: Emergency Provider Internal Medicine
DX: F31.9 Bipolar disorder, unspecified (principal); F19.10 Other psychoactive substance abuse, uncomplicated; Z59.00 Homelessness unspecified; Z79.899 Other long term (current) drug therapy
CPT/HCPCS: 99282; 99283

== ENCOUNTER 2022-06-30 09:07 | Emergency (ER) | payer MEDICAID, SELFPAY ==
--- NOTE | ~2022-06-30 | XR_ITS ---
EXAMINATION: XR CHEST CLINICAL INFORMATION: Chest pain. Evaluate for pneumothorax. COMPARISON: Chest radiograph dated 06/13/2022. TECHNIQUE: Frontal view of the chest was obtained. FINDINGS: The lungs are clear. The cardiomediastinal silhouette is normal in size. There is no pleural effusion or pneumothorax. No acute osseous abnormality. XR/XR chest 1V IMPRESSION: No acute cardiopulmonary findings.
[2022-06-30 09:17] VITALS: BP 120/28; BP 152/78; PULSE 56; PULSE 67; RESP 20; TEMP 36.5; O2SAT 97; O2SAT 99; BMI 29.6
--- NOTE | 2022-06-30 10:02 | PC.NURSE ---
pt reports that he was taken into police custody and when they placed the handcuffs on him he started having chest pain. he states that he was seen here previously for the same thing. he states that he does not have cardiac hx. pt has hx of cocaine use, he last used last night. pt currently in police custody. police at bedside.
[2022-06-30 11:07] VITALS: BP 128/95; PULSE 52; RESP 16; TEMP 36.3; O2SAT 97
--- NOTE | 2022-06-30 11:09 | ED_ITS ---
HPI - Chest Pain General Chief Complaint: Chest Pain Stated Complaint: Chest wall pain Time Seen by Provider: 06/30/22 09:10 Source: patient Mode of arrival: EMS Limitations: no limitations and other (Patient is incarcerated and is in police custody) History of Present Illness HPI narrative: 36-year-old male who presents emergency department for evaluation sternal and right-sided chest pain. Patient states that he woke up this morning with pain in the right side of his chest and in his sternal area. He describes as a sharp pain which is constant and is 8/10 at its worst. The pain is worse with breathing and with movement. The the patient states that he had similar pain and was seen in the emergency department. I did review the record from 06/14/2022-the record states that he had 2 months of right-sided chest pain which was worse with movement and breathing similar to today's chest pain. His laboratory evaluation was unremarkable. His tox screen was positive for opiates, fentanyl and cocaine. He was diagnosed with musculoskeletal pain, treated with Toradol and advised to take ibuprofen Patient states that this pain did improve after the treatment that he had in the emergency department. The patient denied fever, chills, rhinorrhea, sore throat, cough, shortness of breath, dyspnea on exertion, nausea, vomiting, diarrhea, diaphoresis, lightheadedness or dizziness. He had no radiation of the pain. He denied any pain or swelling in his lower extremities. He denied going any long trips. The patient states that he was pulled over for a traffic violation and was supposed to go to court. Since he did not appeared core he had a warrant out for his arrest which was executed yesterday. He believes that he is going to be filled out today. Related Data Home Medications Medication Instructions Recorded Confirmed methadone 10 mg/mL oral syringe 155 mg PO DAILY 06/15/22 06/15/22 (FOR ORAL USE ONLY) Previous Rx's Medication Instructions Recorded clonazepam 0.5 mg tablet (Klonopin) 0.5 mg PO BID PRN anxiety #20 tabs 04/04/22 lamotrigine 150 mg tablet 150 mg PO BID #60 tabs 04/04/22 (Lamictal) acetaminophen 500 mg tablet 1,000 mg PO QID PRN fever or pain 04/24/22 (Tylenol Extra Strength) #14 tabs cephalexin 500 mg capsule 500 mg PO Q6H 10 days #40 caps 04/24/22 doxycycline monohydrate 100 mg 100 mg PO BID 10 days #20 tabs 04/24/22 tablet ibuprofen 800 mg tablet 800 mg PO Q8H PRN pain #14 tabs 04/24/22 acetaminophen 500 mg capsule 1,000 mg PO Q6H PRN fever or pain 06/06/22 #14 caps cephalexin 500 mg capsule 500 mg PO QID #28 caps 06/06/22 doxycycline hyclate 100 mg capsule 100 mg PO BID #20 caps 06/06/22 ibuprofen 600 mg tablet 600 mg PO BID PRN pain #14 tabs 06/14/22 doxycycline hyclate 100 mg tablet 100 mg PO BID #20 tabs 06/23/22 Allergies Allergy/AdvReac Type Severity Reaction Status Date / Time No Known Allergies Allergy Verified 06/30/22 09:32 [No Known Allergies*] Review of Systems Review of Systems: Yes all other systems are reviewed and are negative [facility] Past Medical History [facility] Narrative: Past medical history: None. Social history: He does vape nicotine products and smokes cigarettes. He denies alcohol use. He denies drug use. Medical History Substance abuse Social History Social History Alcohol intake: current Advance Directives: No Physical Exam Vital Signs: Vital Signs: Last Vital Signs Temp 97.4 F 06/30/22 11:07 Pulse 52 06/30/22 11:07 Resp 16 06/30/22 11:07 BP 128/95 H 06/30/22 11:07 Pulse Ox 97 06/30/22 11:07 O2 Del Method Room Air 06/30/22 11:07 BMI result Body Mass Index 29.6 Const: General: cooperative and no acute distress Orientati on/consciousness: oriented to person and oriented to place Limitations: no limitations HEENT: Head: Yes normal to inspection, Yes normocephalic and Yes atraumatic Ears: external ears normal General nose exam: Normal external nose present Face and sinus: Yes normal facial exam Mouth: Normal oral and palatal mucosa present Throat: Yes posterior oropharynx normal Eyes: General: appearance normal, both eyes and all related structures Pupils: Equal, round and reactive pupils present Neck: Neck: Yes normal visual inspection, Yes no lymphadenopathy, Yes trachea midline and Yes supple Chest: Chest palpation & inspection: normal inspection of the chest and tenderness (Sternum and costochondral joints bilaterally-reproduces his pain) Resp: Effort & Inspection: normal respiratory effort and able to speak in complete sentences Auscultation: clear to auscultation bilaterally Cardio: Rate: regular rate Rhythm: regular rhythm Heart sounds: S1 normal heart sound present, S2 normal heart sound present and no murmurs GI: Inspection: Yes normal to inspection Palpation (GI): Soft to palpation, nontender and no guarding Auscultation: normal bowel sounds : General: Yes no CVA tenderness Back/Spine/Pelvis: Back: no CVA tenderness Skin: General skin exam: no rashes or lesions noted Neuro: General: oriented to person and oriented to place Cranial nerves: Yes CN's II-XII intact bilaterally and Yes Equal, round and reactive pupils present Cognition (Neuro): normal cognition Motor exam (neuro): 5/5 motor strength present throughout Extrem: General: Yes normal to inspection Psych: Appearance: grossly normal Speech and movement: Normal speech and movement present Affect: normal affect Attitude: cooperative Thought process: Normal thought process present Thought content: Normal thought content present Medical Decision Making Medical Decision Making MDM Narrative: 36-year-old male who presents emergency department for evaluation of sternal and right-sided chest pain that was present when he woke up this morning the pain is a constant, sharp pain which is worse with movement and worse with breathing and now. Patient has had similar pain on off for the past 2 months and had an emergency room department evaluation. Patient's was examining did reveal tenderness palpation of his costochondral joints and sternal area. One-view chest x-ray was obtained interpreted by me as no pneumothorax. Patient's presentation findings are consistent with costochondritis. He was given Toradol 60 mg IM. He is advised to take ibuprofen 40 mg 3 times a day for the next 5 days. He was given printed and verbal instructions. Patient is in police custody knee is released to the officer that is here in the emergency department with him. Differential Diagnosis Differential Diagnoses: The differential diagnosis associated with the presentation includes Differential diagnosis includes but is not limited to musculoskeletal pain, pleuritic pain, pneumothorax, costochondritis Independent Interpretation I performed an independent interpretation of an: Plain X-Ray Interpretation: My interpretation patient's chest x-ray is as follows: No pneumothorax, no acute disease Radiology Impression Discussion of test interpretation with radiology: I have reviewed the radiologist's reading. Radiologist Impression: XR chest 1V IMPRESSION: No acute cardiopulmonary findings. Dictated By:Prakash Cheung MDSigned By:<Electronically signed by Prakash Cheung MD in [place]>06/30/22 1111 Discharge Plan Discharge Clinical Impression: Acute costochondritis Patient Disposition: Home, Self-Care Instructions: Costochondritis (ED) Additional Instructions: Your chest x-ray was unremarkable, there is no evidence of a popped lung (pneumothorax) or other reasons for your chest pain. You are very tender over the joints of your chest where the ribs attached to the breast bone. This is caused by inflammation of these joints and this is called costochondritis. You were treated with Toradol 60 mg IM. Take ibuprofen 200 mg pills, 2 pills every 6 hours as needed for pain for the next 4-5 days. Follow-up with your doctor in 2 days. Please return to the emergency department if your symptoms get worse or if you develop any symptoms that are concerning to you. Prescriptions: No Action lamotrigine [Lamictal] 150 mg tablet 150 mg PO BID Qty: 60 0RF clonazepam [Klonopin] 0.5 mg tablet 0.5 mg PO BID PRN (Reason: anxiety) Qty: 20 0RF doxycycline monohydrate 100 mg tablet 100 mg PO BID 10 Days Qty: 20 0RF cephalexin 500 mg capsule 500 mg PO Q6H 10 Days Qty: 40 0RF acetaminophen [Tylenol Extra Strength] 500 mg tablet 1,000 mg PO QID PRN (Reason: fever or pain) Qty: 14 0RF ibuprofen 800 mg tablet 800 mg PO Q8H PRN (Reason: pain) Qty: 14 0RF doxycycline hyclate 100 mg tablet 100 mg PO BID Qty: 20 0RF doxycycline hyclate 100 mg capsule 100 mg PO BID Qty: 20 0RF cephalexin 500 mg capsule 500 mg PO QID Qty: 28 0RF acetaminophen 500 mg capsule 1,000 mg PO Q6H PRN (Reason: fever or pain) Qty: 14 0RF ibuprofen 600 mg tablet 600 mg PO BID PRN (Reason: pain) Qty: 14 0RF methadone 10 mg/mL Syringe 155 mg PO DAILY
[2022-06-30] MEDS: Ketorolac Tromethamine 60 MG/2 ML VIAL IM (11:35)
--- NOTE | 2022-06-30 11:41 | PC.NURSE ---
medicated per MAR Attempted to get through to [facility] to verify methadone dose 3 times and no one is answering phone. message left
--- NOTE | 2022-06-30 11:44 | PC.NURSE ---
per MD, will give methadone dose 155mg without verification. clinic not answering phone
[2022-06-30 12:00] VITALS: PULSE 61; RESP 16; O2SAT 98
[2022-06-30] MEDS: methADONE HCl 20 MG/2 ML ORAL.CONC 115 MG PO (12:21)
== END 2022-06-30 12:35 ==
PROVIDERS: Emergency Provider Emergency Medicine Emergency Medical Services
DX: M94.0 Chondrocostal junction syndrome [Tietze] (principal); F19.10 Other psychoactive substance abuse, uncomplicated; F11.20 Opioid dependence, uncomplicated
CPT/HCPCS: 71045; 96372; 99284; J1885

== ENCOUNTER 2022-07-28 20:03 | Emergency (ER) | payer MEDICAID, SELFPAY ==
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
[2022-07-28 20:12] VITALS: BP 140/84; PULSE 94; O2SAT 98
--- NOTE | 2022-07-28 20:12 | PC.NURSE ---
Security called for changeover.
[2022-07-28 20:50] VITALS: BP 121/51; PULSE 81; RESP 18; TEMP 37; O2SAT 89
--- NOTE | 2022-07-28 20:55 | PC.NURSE ---
pt aox4 tearful lac below lower L lip, bruising observed to lower L lip pt admits to falling, use of heroin, ETOH pt O2Sat at 89% on RA, pt placed on O2 NC and now O2Sat at 98% pt placed on continuous monitoring manager will CTM
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
[2022-07-28] MEDS: 0.9 % Sodium Chloride 1,000 ML 999 ML IV (21:48)
--- NOTE | 2022-07-28 21:48 | PC.NURSE ---
IV line access est 22g L forearm difficult to obtain numerous areas of scar tissue on L arm
--- NOTE | 2022-07-28 21:49 | PC.NURSE ---
1L YESENIA hung and running per APR
--- NOTE | 2022-07-28 21:54 | PC.NURSE ---
pt unable to maintain O2Sat wnl w/o O2 supplementation- desats to 88% pt remains on 2L O2Sat at 97%
[2022-07-28 22:54] LABS: Basophils Percent Auto 0.3 % (0-2); Eosinophils Absolute Auto 0.1 X10*3/uL (0.0-0.4); Eosinophils Percent Auto 1.1 % (0-4); Hematocrit 46.3 % (42.0-52.0); Hemoglobin 15.9 g/dl (14.0-18.0); Imm Gran Abs Auto 0.01 X10*3/uL (0.00-0.03); Imm Gran Pct Auto 0.1 % (0.0-0.4); Lymphocytes Absolute Auto 3.1 X10*3/uL (1.2-4.9); Lymphocytes Percent Auto 42.9 % (20-40); MANUAL DIFF FLAG NO; Mean Corpuscular HGB Conc 34.3 g/dl (31.0-36.0); Mean Corpuscular Hemoglobin 32.9 pg (27.0-33.0); Mean Corpuscular Volume 95.7 fL (80.0-98.0); Monocytes Absolute Auto 0.7 X10*3/uL (0.1-1.2); Monocytes Percent Auto 9.9 % (2-11); Neutrophils Absolute Auto 3.3 x10*3/uL (2.0-8.3); Neutrophils Percent Auto 45.7 % (45-73); Platelet Count 158 X10*3/uL (160-400); Red Blood Count 4.84 X10*6/uL (4.60-5.80); Red Cell Distribution Width 12.5 % (11.0-16.0); White Blood Count 7.3 X10*3/uL (4.8-10.8)
--- NOTE | 2022-07-28 22:54 | MHC.EDTECH ---
Brought patient sandwich, snacks and ronaldo benny.
[2022-07-28 23:01] LABS: Prothrombin Time 11.8 SEC (10.0-13.1)
[2022-07-28 23:04] LABS: Partial Thromboplastin Time 31.3 SEC (26.0-36.4)
[2022-07-28 23:08] LABS: Ethanol 368 mg/dL
[2022-07-28 23:10] LABS: Alanine Aminotransferase 39 U/L (0-40); Alkaline Phosphatase 107 U/L (39-117); Anion Gap 17 (12-20); Aspartate Amino Transferase 67 U/L (5-37); Bilirubin Total 1.1 mg/dL (0.0-1.0); Blood Urea Nitrogen 9 mg/dL (9-16); Carbon Dioxide 27 mmol/L (22-29); Chloride 108 mmol/L (96-108); Estimated Glomerular Filt Rate > 60; Glucose Random 76 mg/dL (60-115); Potassium 3.6 mmol/L (3.3-5.1); Sodium 148 mmol/L (135-145); Total Protein 7.7 g/dL (6.5-8.0)
--- NOTE | 2022-07-29 00:20 | PC.NURSE ---
pt sleeping respirations even and unlabored no apparent distress will CTM
[2022-07-29 01:28] VITALS: BP 110/70; PULSE 74; RESP 17; TEMP 36.8; O2SAT 95
--- NOTE | 2022-07-29 01:29 | PC.NURSE ---
pt no longer on O2 supplementation O2Sat @ 95% on RA
[2022-07-29 06:00] VITALS: BP 126/86; PULSE 75; RESP 13; O2SAT 98
--- NOTE | 2022-07-29 06:00 | PC.NURSE ---
VSS pt sleeping respirations even and unlabored no apparent distress
--- NOTE | 2022-07-29 06:56 | PC.NURSE ---
Handoff report given to S[facility]
--- NOTE | 2022-07-29 08:45 | PC.NURSE ---
assumed care of this pt at 0700. pt seen by Dr. Cohen and was cleared for discharge. pt given something to eat then was escorted to decon to retrieve clothing. denies pain. iv removed, discharge instructions reviewed with pt.
== END 2022-07-29 08:54 | disposition home or self-care (01) ==
PROVIDERS: Emergency Provider Emergency Medicine Emergency Medical Services
DX: F10.920 Alcohol use, unspecified with intoxication, uncomplicated (principal); Y90.8 Blood alcohol level of 240 mg/100 ml or more; S09.90XA Unspecified injury of head, initial encounter; S00.83XA Contusion of other part of head, initial encounter; S01.81XA Laceration without foreign body of other part of head, initial encounter; S01.511A Laceration without foreign body of lip, initial encounter; Y04.8XXA Assault by other bodily force, initial encounter; F11.20 Opioid dependence, uncomplicated; F19.10 Other psychoactive substance abuse, uncomplicated; Z79.899 Other long term (current) drug therapy; Y93.9 Activity, unspecified; Y92.410 Unspecified street and highway as the place of occurrence of the external cause; Y99.9 Unspecified external cause status
CPT/HCPCS: 36415; 70450; 70486; 80053; 80307; 85025; 85610; 85730; 96360; 99284; 99285

== ENCOUNTER 2023-06-23 01:53 | Emergency (ER) | payer OTHER, SELFPAY ==
[2023-06-23 02:10] VITALS: BP 104/72; BP 121/78; PULSE 77; PULSE 80; RESP 16; TEMP 36.6; O2SAT 95; O2SAT 98; BMI 29.3
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
--- NOTE | 2023-06-23 02:36 | MHC.EDTECH ---
patient was change into hospital attire ,all Patient belongings are locked up in decon .
[2023-06-23 06:46] VITALS: BP 110/70; PULSE 66; RESP 17; TEMP 36.9; O2SAT 98
--- NOTE | 2023-06-23 07:13 | PC.NURSE ---
this RN resumed care of pt at 0700. pt requesting methadone dose - when conversating w/ pt - pt unable to hold a conversation w/o falling asleep. unknown methadone clinic at this time after multiple attempts to speak w/ pt. pt resting comfortably in bed in no apparent distress. no sob/wob noted. respirations even and unlabored.
--- NOTE | 2023-06-23 10:28 | PC.NURSE ---
reattempted to wake pt up to d/c - pt continues to fall asleep while conversating. snacks placed bedside for when pt becomes more alert.
--- NOTE | 2023-06-23 11:07 | PC.NURSE ---
methadone dose verification form filled out/faxed to pharmacy/placed in chart. plan of care ongoing.
--- NOTE | 2023-06-23 11:52 | HE.PHANOTE ---
RE: methadone Received last dose verification from [facility] [place], 60mg on 06/21/23 @0520am
[2023-06-23 12:05] VITALS: BP 106/68; PULSE 71; RESP 16; TEMP 36.6; O2SAT 96
[2023-06-23] MEDS: methADONE HCl 20 MG/2 ML ORAL.CONC 60 MG PO (12:06)
--- NOTE | 2023-06-23 12:16 | PC.NURSE ---
pt refused take home narcan. methadone administered per provider order. pt provided w/ last dose letter. pt escorted to [facility] to obtain belongings.
[2023-06-23 12:17] VITALS: BP 106/68; PULSE 71; RESP 16; TEMP 36.6; O2SAT 96
== END 2023-06-23 12:17 | disposition home or self-care (01) ==
PROVIDERS: Emergency Provider Internal Medicine
DX: T40.1X1A Poisoning by heroin, accidental (unintentional), initial encounter (principal); Y92.9 Unspecified place or not applicable; Z79.899 Other long term (current) drug therapy; F11.10 Opioid abuse, uncomplicated
CPT/HCPCS: 99284; 99285

== ENCOUNTER 2023-06-23 19:37 | Emergency (ER) | payer OTHER, SELFPAY ==
[2023-06-23 19:46] VITALS: BP 126/82; BP 95/57; PULSE 80; PULSE 82; RESP 14; TEMP 36.6; O2SAT 98; BMI 29.2
[2023-06-23 19:53] VITALS: BP 101/58; PULSE 81; RESP 15; TEMP 36.4; O2SAT 95
--- NOTE | 2023-06-23 20:36 | ED.GENADULT ---
HPI - General Adult General Chief complaint: ETOH/Substance Use Stated complaint: heroine/fentanyl use,no narcan given Time Seen by Provider: 06/23/23 20:30 Source: patient and EMS Mode of arrival: EMS Limitations: no limitations History of Present Illness HPI narrative: 37-year-old male who has frequent ED visits for substance abuse brought in by ambulance today after was found on the sidewalk unresponsive, EMS was able to wake him up without using Narcan, patient was maintaining his vital signs, was seen in the emergency department for accidental overdose. Patient in the emergency department response intermittently to painful stimuli and open his eyes to his name been called, no obvious head trauma. Related Data Home Medications ?Medication ?Instructions ?Recorded ?Confirmed methadone 10 mg/mL oral syringe 60 mg PO DAILY 06/15/22 06/23/23 (FOR ORAL USE ONLY) Previous Rx's ?Medication ?Instructions ?Recorded clonazepam 0.5 mg tablet (Klonopin) 0.5 mg PO BID PRN anxiety #20 tabs 04/04/22 lamotrigine 150 mg tablet 150 mg PO BID #60 tabs 04/04/22 (Lamictal) acetaminophen 500 mg tablet 1,000 mg (2 x 500 mg) PO QID PRN 04/24/22 (Tylenol Extra Strength) fever or pain #14 tabs cephalexin 500 mg capsule 500 mg PO Q6H 10 days #40 caps 04/24/22 doxycycline monohydrate 100 mg 100 mg PO BID 10 days #20 tabs 04/24/22 tablet ibuprofen 800 mg tablet 800 mg PO Q8H PRN pain #14 tabs 04/24/22 acetaminophen 500 mg capsule 1,000 mg (2 x 500 mg) PO Q6H PRN 06/06/22 fever or pain #14 caps cephalexin 500 mg capsule 500 mg PO QID #28 caps 06/06/22 doxycycline hyclate 100 mg capsule 100 mg PO BID #20 caps 06/06/22 ibuprofen 600 mg tablet 600 mg PO BID PRN pain #14 tabs 06/14/22 doxycycline hyclate 100 mg tablet 100 mg PO BID #20 tabs 06/23/22 Allergies Allergy/AdvReac Type Severity Reaction Status Date / Time No Known Allergies Allergy Verified 06/23/23 19:48 [No Known Allergies*] Review of Systems Review of Systems: All other systems are reviewed and are negative Constitutional: Reports as per HPI and Reports no additional constitutional complaints Eyes: Reports as per HPI and Reports no additional eye complaints Reports system reviewed and no additional complaints, except as documented Cardiovascular: Reports as per HPI and Reports no additional cardiovascular complaints Respiratory: Reports as per HPI and Reports no additional respiratory complaints Gastrointestinal: Reports as per HPI and Reports no additional gastrointestinal complaints Genitourinary: Reports no additional female genitourinary complaints Musculoskeletal: Reports no additional musculoskeletal complaints Skin/Breast: Reports system reviewed and no additional complaints, except as docu Psychiatric: Reports no additional psychiatric complaints Endocrine: Reports no additional endocrine complaints Hematologic/Lymphatic: Reports no additional hematologic/lymphatic complaints Allergic/Immunologic: Reports no additional allergic/immunologic complaints Reports system reviewed and no additional complaints, except as documented and Reports Abnormal speech present [facility] Past Medical History Medical History Substance abuse Social History Social History Alcohol intake: current Alcohol intake frequency: a few times a week Substance Use Type: Heroin Advance Directives: No Advance Directives Information Provided: No Physical Exam ED Vital Signs: Vital Signs - 24 hr 06/23/23 19:46 06/23/23 19:53 06/23/23 22:07 Temperature 97.8 F 97.5 F Pulse Rate 82 81 68 Respiratory Rate 14 15 14 Blood Pressure 95/57 L 101/58 L 110/72 Pulse Oximetry 98 95 98 Oxygen Delivery Method Room Air Room Air Room Air BMI result Body Mass Index 29.2 Vital signs have been reviewed and appear to be correct. Blood pressure elevated. Heart rate normal. Respiratory rate normal. Temperature normal. Oxygen saturation normal. Appearance: Lethargic arouse with sternal rub Orientedx3. No acute distress. Head: Normal external exam. Normocephalic. Atraumatic. No Reyna signs noted. No raccoon eyes noted Eyes: PERRLA. EOMI. Conjunctiva and sclera normal. Eyelids normal. ENT: TM's Normal. Pharynx normal. Uvula midline. Moist mucous membranes. No trismus noted. No drooling noted. No muffled voice noted. Neck: Normal inspection. Neck supple. FROM. No adenopathy. Thyroid Normal. No meningeal signs. No neck mass noted. CVS: Normal heart rate and rhythm. Heart sound normal. No murmurs noted. Pulses normal throughout. Respiratory: No respiratory distress. Painless inspiration. Breath sounds normal. No wheezes/rales/rhonchi noted. Chest nontender. No accessory muscle usage noted or decreased air movement noted. Abdomen: Soft and nontender. Bowel sounds normal in all 4 quadrants. No distention noted. No organomegaly noted. No visible injury noted. Back: No CVA tenderness. Full range of motion noted. Skin: Skin warm and dry. Normal skin color. Normal skin turgor. No rashes/lesions/lacerations noted. Extremities: No lower extremity edema. Extremities exhibit normal range of motion. Extremities nontender. Neuro: Lethargic arousable to painful and verbal stimuli. Cranial nerve exam: II-XII are grossly intact No motor deficit. No sensory deficit. Reflexes normal. Course Reevaluation(s) Reevaluation #1: 37-year-old male known history of incidental overdose required no Narcan by EMS, patient also had history of alcohol abuse patient smell alcohol on breath. Will start the patient on physician observation until is fully awake, for further evaluation and disposition. Time: 20:41 Reevaluation #2: Patient is still sleeping arouse to verbal stimuli, patient is asking to sleep couple more hours. Time: 23:25 Medical Decision Making Differential Diagnosis Differential Diagnoses: The differential diagnosis associated with the presentation includes (Incidental substance overdose, alcohol intoxication, head trauma, chest trauma, abdominal trauma, narcotic induced respiratory depression.) Admission/Observation Consideration of admission/observation: Escalation of care including admission/observation considered Chronic Conditions Patient?s care impacted by: Other (Drug abuse.) Discharge Plan Discharge Clinical Impression: Accidental opiate poisoning Patient Disposition: Still a Patient Instructions: Polysubstance Abuse (ED) Prescriptions: No Action lamotrigine [Lamictal] 150 mg tablet 150 mg PO BID Qty: 60 0RF clonazepam [Klonopin] 0.5 mg tablet 0.5 mg PO BID PRN (Reason: anxiety) Qty: 20 0RF doxycycline monohydrate 100 mg tablet 100 mg PO BID 10 Days Qty: 20 0RF cephalexin 500 mg capsule 500 mg PO Q6H 10 Days Qty: 40 0RF acetaminophen [Tylenol Extra Strength] 500 mg tablet 1,000 mg PO QID PRN (Reason: fever or pain) Qty: 14 0RF ibuprofen 800 mg tablet 800 mg PO Q8H PRN (Reason: pain) Qty: 14 0RF doxycycline hyclate 100 mg tablet 100 mg PO BID Qty: 20 0RF doxycycline hyclate 100 mg capsule 100 mg PO BID Qty: 20 0RF cephalexin 500 mg capsule 500 mg PO QID Qty: 28 0RF acetaminophen 500 mg capsule 1,000 mg PO Q6H PRN (Reason: fever or pain) Qty: 14 0RF ibuprofen 600 mg tablet 600 mg PO BID PRN (Reason: pain) Qty: 14 0RF methadone 10 mg/mL Syringe 60 mg PO DAILY Print Language: Korean
[2023-06-23 22:07] VITALS: BP 110/72; PULSE 68; RESP 14; O2SAT 98
--- NOTE | 2023-06-23 22:08 | PC.NURSE ---
pt resting comfortably in bed, VSS. breathing even and unlabored. no apparent distress noted at this time
--- NOTE | 2023-06-23 23:37 | PC.NURSE ---
pt moving in bed. does not know why he is here. pt back to resting with eyes closed, not answering questions. VSS.
[2023-06-24] VITALS (7 sets, daily range): BP systolic 102–121; BP diastolic 69–84; PULSE 58–76; RESP 13–14; TEMP -17.7–36.7; O2SAT 13–98
--- NOTE | 2023-06-24 02:17 | PC.NURSE ---
pt resting comfortably. breathing even an unlabored, no apparent distress noted at this time
--- NOTE | 2023-06-24 08:01 | PC.NURSE ---
Pt sleeping at this time. Breathing even and unlabored. Pt is on bedside black top paver operator, NSR with stable vitals.
--- NOTE | 2023-06-24 09:07 | PC.NURSE ---
Krys from addiction med at bedside for evaluation at this time
--- NOTE | 2023-06-24 09:26 | PC.NURSE ---
Plan for referral for [facility] per Krys Bell
[2023-06-24] MEDS: Nicotine 7 MG PATCH.TD24 TRANSDERMA (09:36)
--- NOTE | 2023-06-24 09:40 | PC.NURSE ---
Nicotine patch to left arm as requested. Awaits breakfast tray and dispo
--- NOTE | 2023-06-24 10:11 | HO.SUDE ---
Addendum entered by Krys Vila 06/24/23 10:23: Pt is currently taking methadone, 60 mg daily. Pt last received dose at [facility] on 06/22. Prior to that, received on 06/20 at [facility]. Addendum entered by Krys Vila 06/24/23 10:16: Pt also reports he is prescribed benzodiazepines and takes them as prescribed. [facility] does have [facility] prescription for alprazolam 1 mg tablets, 30 day supply, 90 tabs supplied. Rx was written by prescriber in [place]. Original Note: Met with pt in [facility] after pt expressed interest in ATS. Pt had presented after being found on sidewalk unresponsive, however, EMS was able to wake pt without Narcan. Pt reported substance use to EMS. Of note, pt was discharged on 06/22 around noon after overdose and then was found later that day which resulted in this ED visit. Pt reports using heroin/fentanyl, 2 bundles daily, IV; alcohol, 1 pint daily; cocaine, 1 gram daily, IV. Pt reports ATS admissions, most recently had been at [facility] and discharged this past . Pt is only interested in [facility] for ATS at this time. Pt aware bed availability is limited and is prepared to follow up from home. T/w has sent referral, awaiting review. Provider and RN aware.
--- NOTE | 2023-06-24 10:34 | MHC.RECOVRN ---
[facility] does not have bed availability at this time. Pt to follow up outpatient by calling [phone].
[2023-06-24] MEDS: Naloxone HCl Nasal TAKE HOME 4 MG SPRAY 8 MG NOSTRILALT (11:01)
[2023-06-24] MEDS: Bacitracin Oint 0.9 GM PACKET 1 APPL TOPICAL (11:01)
== END 2023-06-24 11:09 | disposition home or self-care (01) ==
PROVIDERS: Emergency Provider Emergency Medicine
DX: T40.1X1A Poisoning by heroin, accidental (unintentional), initial encounter (principal); Z79.899 Other long term (current) drug therapy; Z71.51 Drug abuse counseling and surveillance of drug abuser
CPT/HCPCS: 99284; 99285

== ENCOUNTER 2023-06-30 09:41 | Emergency (ER) | payer OTHER, SELFPAY ==
[2023-06-30 09:59] VITALS: BP 109/76; PULSE 88; RESP 16; TEMP 36.4; O2SAT 97; BMI 28.6
--- NOTE | 2023-06-30 10:11 | ED_ITS ---
HPI - General Adult General Chief complaint: General Medical Stated complaint: seeking methadone dose Time Seen by Provider: 06/30/23 10:08 Source: patient Mode of arrival: ambulatory Limitations: no limitations History of Present Illness ED Provider: Venkata SHABAZZ HPI narrative: 37-year-old male history of opiate use disorder on maintenance methadone presenting requesting a dose of methadone and a last dose letter for his clinic. Reports the last time he took methadone was 3 days ago, last time he used was 2 days ago. Not suicidal not homicidal. No medical complaints. Related Data Home Medications ?Medication ?Instructions ?Recorded ?Confirmed methadone 10 mg/mL oral syringe 60 mg PO DAILY 06/15/22 06/23/23 (FOR ORAL USE ONLY) Previous Rx's ?Medication ?Instructions ?Recorded clonazepam 0.5 mg tablet (Klonopin) 0.5 mg PO BID PRN anxiety #20 tabs 04/04/22 lamotrigine 150 mg tablet 150 mg PO BID #60 tabs 04/04/22 (Lamictal) acetaminophen 500 mg tablet 1,000 mg (2 x 500 mg) PO QID PRN 04/24/22 (Tylenol Extra Strength) fever or pain #14 tabs cephalexin 500 mg capsule 500 mg PO Q6H 10 days #40 caps 04/24/22 doxycycline monohydrate 100 mg 100 mg PO BID 10 days #20 tabs 04/24/22 tablet ibuprofen 800 mg tablet 800 mg PO Q8H PRN pain #14 tabs 04/24/22 acetaminophen 500 mg capsule 1,000 mg (2 x 500 mg) PO Q6H PRN 06/06/22 fever or pain #14 caps cephalexin 500 mg capsule 500 mg PO QID #28 caps 06/06/22 doxycycline hyclate 100 mg capsule 100 mg PO BID #20 caps 06/06/22 ibuprofen 600 mg tablet 600 mg PO BID PRN pain #14 tabs 06/14/22 doxycycline hyclate 100 mg tablet 100 mg PO BID #20 tabs 06/23/22 Allergies Allergy/AdvReac Type Severity Reaction Status Date / Time No Known Allergies Allergy Verified 06/30/23 10:00 [No Known Allergies*] Review of Systems Review of Systems: Yes all other systems are reviewed and are negative PMFSH Past Medical History Attestation statement: The following information was validated with the patient. Source: old records reviewed and nursing notes reviewed Medical History Substance abuse Social History Social History Alcohol intake: current Alcohol intake frequency: 3 or more drinks per day Alcohol type: hard liquor Substance Use Type: Crack/Cocaine, Heroin and Opiates Advance Directives: No Advance Directives Information Provided: No Physical Exam ED Vital Signs: Vital Signs - 24 hr 06/30/23 09:59 Temperature 97.6 F Pulse Rate 88 Respiratory Rate 16 Blood Pressure 109/76 Pulse Oximetry 97 Oxygen Delivery Method Room Air BMI result Body Mass Index 28.6 vss Appearance: Alert.? Oriented X3.? No acute distress.? Head: Normocephalic, atraumatic, no step-offs or deformities Eyes: Pupils equal, round and reactive to light.? CVS:Pulses normal.? Respiratory: No respiratory distress.? Abdomen: Soft and nontender.? Skin: Skin warm and dry.? Normal skin color.? Normal skin turgor.? Extremities: 5/5 strength to bilateral upper and lower extremities Neuro: Oriented X 3.? No motor deficit.? No sensory deficit. CN 2-12 intact Course Reevaluation(s) Reevaluation #1: Patient will be dose with methadone 60, will be given a last dose letter. I did run this by the comprehensive care team who agrees with this plan. Educated patient on diagnosis and treatment plan, answered all question, patient verbalizes understanding. At this time patient will be discharged home, advised to return with new or worsening symptoms. Educated on worrisome signs and symptoms and when to return. At this time I feel comfortable discharge home. Time: 10:14 Medical Decision Making Medical Decision Making [facility] Narrative: 1012 37-year-old male presents requesting methadone dose and last dose letter. He reports he has not had it for 2 days. He is usually on 60 of methadone. Physical exam benign Likely opiate use disorder on maintenance methadone, non med compliant has not taken it for 2 days. No suicidal or homicidal ideation. No medical complaints. Plan will discuss this case with addiction Differential Diagnosis Differential Diagnoses: The differential diagnosis associated with the presentation includes Likely opiate use disorder on maintenance methadone, non med compliant has not taken it for 2 days. No suicidal or homicidal ideation. No medical complaints. Admission/Observation Consideration of admission/observation: Escalation of care including admission/observation considered No indication External Record Review External record reviewed: Inpatient record, Office record, Outpatient record, Prior outpatient labs, Prior outpatient radiology and Primary care record Chronic Conditions Patient?s care impacted by: Other (Opiate use disorder on maintenance methadone) Discharge Plan Discharge Clinical Impression: Opiate addiction Patient Disposition: Home, Self-Care Instructions: Opioid Use Disorder (ED) Additional Instructions: Take your medications as prescribed. If you were prescribed antibiotics today, it is important that you take your medication to their entirety, do not skip any doses, do not finish them early. Follow-up with your primary care provider this week. Return to the emergency department with new or worsening symptoms. Such as fevers, chills, chest pain, shortness of breath, nausea, vomiting, dizziness, headache, vision changes, lethargy In case of emergency call 911 We have given you a last dose letter. Please give this to your clinic. Prescriptions: No Action lamotrigine [Lamictal] 150 mg tablet 150 mg PO BID Qty: 60 0RF clonazepam [Klonopin] 0.5 mg tablet 0.5 mg PO BID PRN (Reason: anxiety) Qty: 20 0RF doxycycline monohydrate 100 mg tablet 100 mg PO BID 10 Days Qty: 20 0RF cephalexin 500 mg capsule 500 mg PO Q6H 10 Days Qty: 40 0RF acetaminophen [Tylenol Extra Strength] 500 mg tablet 1,000 mg PO QID PRN (Reason: fever or pain) Qty: 14 0RF ibuprofen 800 mg tablet 800 mg PO Q8H PRN (Reason: pain) Qty: 14 0RF doxycycline hyclate 100 mg tablet 100 mg PO BID Qty: 20 0RF doxycycline hyclate 100 mg capsule 100 mg PO BID Qty: 20 0RF cephalexin 500 mg capsule 500 mg PO QID Qty: 28 0RF acetaminophen 500 mg capsule 1,000 mg PO Q6H PRN (Reason: fever or pain) Qty: 14 0RF ibuprofen 600 mg tablet 600 mg PO BID PRN (Reason: pain) Qty: 14 0RF methadone 10 mg/mL Syringe 60 mg PO DAILY Referrals: Physician,Unknown J [Physician] - 2 days Print Language: Persian
--- NOTE | 2023-06-30 10:42 | HE.PHANOTE ---
METHADONE: Spoke with Ivette Stephen from [facility] who works with Arlette Shea and Krys Vila. Ivette discussed this patient with Arlette Shea and both agreed that 60mg, was an appropriate dose for this patient. Patient last received here at [facility] on 06/22 for 60mg.
[2023-06-30] MEDS: methADONE HCl 20 MG/2 ML ORAL.CONC 60 MG PO (10:47)
[2023-06-30 10:53] VITALS: BP 109/76; PULSE 88; RESP 16; TEMP 36.4; O2SAT 97
--- NOTE | 2023-06-30 11:02 | MHC.RECOVRN ---
Met with patient in ED triage area, he arrived for methadone dose, I was consulted by medical team for dose verification. Patient states he is established with [facility], and will go there tomorrow for his dose. He has a last dose letter from 3 days ago with him that he provided to the MD and PA was 60mg. He is unhoused and lost his most recent letter, patient admits to using heroine 2 days ago. He is alert and oriented x4, speaking in clear/full sentences. ED nursing team provided medication and last dose letter for patient. I went back down with bus passes that patient requested and he had left already. Discussed this with Arlette Shea APRN.
== END 2023-06-30 10:54 | disposition home or self-care (01) ==
PROVIDERS: Emergency Provider Emergency Medicine
DX: F11.20 Opioid dependence, uncomplicated (principal)
CPT/HCPCS: 99282; 99283

== ENCOUNTER 2023-06-30 19:45 | Emergency (ER) | payer OTHER, SELFPAY ==
--- NOTE | 2023-06-30 | ECG_ITS ---
Test Reason : CHEST PAIN Blood Pressure : / mmHG Vent. Rate : 075 BPM Atrial Rate : 075 BPM P-R Int : 168 ms QRS Dur : 118 ms QT Int : 408 ms P-R-T Axes : 069 054 053 degrees QTc Int : 455 ms Normal sinus rhythm Non-specific intra-ventricular conduction delay Borderline ECG When compared with ECG of 13-JUN-2022 22:12, No significant change was found Referred By: Generic ED Physician Electronically Signed By:Antonio Aguilera
[2023-06-30 19:55] VITALS: BP 116/73; BP 121/81; PULSE 73; PULSE 79; RESP 14; TEMP 37.2; O2SAT 96; O2SAT 98; BMI 28.3
--- NOTE | 2023-06-30 19:59 | ED_ITS ---
HPI - Chest Pain General Chief Complaint: Chest Pain Stated Complaint: chest pain x 2days Time Seen by Provider: 06/30/23 19:55 Source: patient Mode of arrival: EMS Limitations: no limitations History of Present Illness HPI narrative: Patient homeless history of substance abuse cocaine and heroin was seen here earlier for methadone dose now he comes for 3 days of chest pain which is localized in mid chest for for last 3 days comes and goes saying for few minutes patient does use cocaine last use of cocaine was few days ago no shortness a breath no palpitation Related Data Home Medications ?Medication ?Instructions ?Recorded ?Confirmed methadone 10 mg/mL oral syringe 60 mg PO DAILY 06/15/22 06/23/23 (FOR ORAL USE ONLY) Previous Rx's ?Medication ?Instructions ?Recorded clonazepam 0.5 mg tablet (Klonopin) 0.5 mg PO BID PRN anxiety #20 tabs 04/04/22 lamotrigine 150 mg tablet 150 mg PO BID #60 tabs 04/04/22 (Lamictal) acetaminophen 500 mg tablet 1,000 mg (2 x 500 mg) PO QID PRN 04/24/22 (Tylenol Extra Strength) fever or pain #14 tabs cephalexin 500 mg capsule 500 mg PO Q6H 10 days #40 caps 04/24/22 doxycycline monohydrate 100 mg 100 mg PO BID 10 days #20 tabs 04/24/22 tablet ibuprofen 800 mg tablet 800 mg PO Q8H PRN pain #14 tabs 04/24/22 acetaminophen 500 mg capsule 1,000 mg (2 x 500 mg) PO Q6H PRN 06/06/22 fever or pain #14 caps cephalexin 500 mg capsule 500 mg PO QID #28 caps 06/06/22 doxycycline hyclate 100 mg capsule 100 mg PO BID #20 caps 06/06/22 ibuprofen 600 mg tablet 600 mg PO BID PRN pain #14 tabs 06/14/22 doxycycline hyclate 100 mg tablet 100 mg PO BID #20 tabs 06/23/22 ibuprofen 600 mg tablet 600 mg PO Q6H PRN fever or pain 06/30/23 #30 tabs Allergies Allergy/AdvReac Type Severity Reaction Status Date / Time No Known Allergies Allergy Verified 06/30/23 20:00 [No Known Allergies*] Review of Systems 2 Review of Systems: Yes all other systems are reviewed and are negative PMFSH Past Medical History Medical History Substance abuse Social History Social History Alcohol intake: current Alcohol intake frequency: a few times a week Alcohol type: hard liquor Smoked in Last 30 Days: Yes Use of substances other than those prescribed or required for medical reasons: Yes Substance Use Type: Crack/Cocaine and Heroin Advance Directives: No Advance Directives Information Provided: No Physical Exam 2 Vital Signs: Vital Signs: Last Vital Signs Temp 98.9 F 06/30/23 22:11 Pulse 72 06/30/23 22:11 Resp 17 06/30/23 22:11 BP 116/73 06/30/23 22:11 Pulse Ox 96 06/30/23 22:11 O2 Del Method Room Air 06/30/23 22:11 BMI result Body Mass Index 28.3 Appearance: Alert. Oriented X3. No acute distress. Eyes: PERRLA, no pallor or icterus ENT: Pharynx normal. Oral Mucosa moist Neck: Normal inspection. Neck supple. CVS: Normal heart rate and rhythm. Pulses normal. No murmur rub or gallop palpable tenderness right mid chest Respiratory: No respiratory distress. Equal air entry bilateral, no wheezing/rales/rhonchi Abdomen: Soft and nontender. Bowel sounds are present, no mass palpable, no CVA tenderness Skin: Skin warm and dry. Normal skin color. Normal skin turgor. Extremities: No lower extremity edema. No calf tenderness Neuro: Oriented X 3. No motor deficit. Medical Decision Making Medical Decision Making [facility] Narrative: Patient has atypical chest pain with substance abuse EKG and troponin negative discharge patient home likely musculoskeletal chest pain Differential Diagnosis Differential Diagnoses: The differential diagnosis associated with the presentation includes Polysubstance abuse/cocaine induced chest pain/musculoskeletal pain/ACS Admission/Observation Consideration of admission/observation: Escalation of care including admission/observation considered Lab Data [facility] Lab Attestation statement: I reviewed the patient's lab results. 06/30/23 20:53 06/30/23 20:53 Labs: Lab Results 06/30/23 Range/Units 20:53 WBC 6.2 (4.8-10.8) X10*3/uL RBC 3.85 L D (4.60-5.80) X10*6/uL Hgb 11.9 L D (14.0-18.0) g/dl Hct 35.5 L D (42.0-52.0) % MCV 92.2 (80.0-98.0) fL MCH 30.9 (27.0-33.0) pg MCHC 33.5 (31.0-36.0) g/dl RDW 13.3 (11.0-16.0) % Plt Count 154 L (160-400) X10*3/uL MPV 11.0 (9.4-12.4) fL Immature Gran % (Auto) 0.2 (0.0-0.4) % Neut % (Auto) 35.0 L (45-73) % Lymph % (Auto) 54.1 H (20-40) % [place] % (Auto) 8.3 (2-11) % Eos % (Auto) 2.1 (0-4) % Baso % (Auto) 0.3 (0-2) % Lymph # (Auto) 3.3 (1.2-4.9) X10*3/uL [place] # (Auto) 0.5 (0.1-1.2) X10*3/uL Eos # (Auto) 0.1 (0.0-0.4) X10*3/uL Baso # (Auto) 0.0 (0.0-0.2) X10*3/uL Abs Immat Gran (auto) 0.01 (0.00-0.03) X10*3/uL Absolute Neuts (auto) 2.2 (2.0-8.3) x10*3/uL Absolute Nucleated RBC 0.000 (0.0-0.012) X10*3/uL Nucleated RBC % (auto) 0.0 (0.0-0.2) /100WBC Sodium 141 (135-145) mmol/L Potassium 4.0 (3.3-5.1) mmol/L Chloride 107 (96-108) mmol/L Carbon Dioxide 26 (22-29) mmol/L Anion Gap 12 (12-20) BUN 11 (9-16) mg/dL Creatinine 0.84 (0.5-1.4) mg/dL Estim Creat Clear Calc 140.9 Estimated GFR > 60 Random Glucose 109 (60-115) mg/dL Calcium 9.3 (8.4-10.2) mg/dL Magnesium 2.1 (1.6-2.6) mg/dL Total Bilirubin 1.0 (0.0-1.0) mg/dL AST 34 (5-37) U/L ALT 42 H (0-40) U/L Alkaline Phosphatase 55 (39-117) U/L Total Creatine Kinase 183 H (38-174) U/L Troponin I High Sens < 2.7 (<3.5-35.0) ng/L Total Protein 6.9 (6.5-8.0) g/dL Albumin 3.9 (3.5-5.0) g/dL Independent Interpretation I performed an independent interpretation of an: EKG Interpretation: Normal sinus rhythm heart rate 75 beats per minute normal intervals normal axis no acute ST T wave changes no acute ischemia Discharge Plan Discharge Clinical Impression: Atypical chest pain, Polysubstance abuse Patient Disposition: Home, Self-Care Instructions: Polysubstance Abuse (ED), Chest Wall Pain (ED) Additional Instructions: Your chest pain is likely musculoskeletal Stop using drugs Ibuprofen for pain Prescriptions: New ibuprofen 600 mg tablet 600 mg PO Q6H PRN (Reason: fever or pain) Qty: 30 0RF No Action lamotrigine [Lamictal] 150 mg tablet 150 mg PO BID Qty: 60 0RF clonazepam [Klonopin] 0.5 mg tablet 0.5 mg PO BID PRN (Reason: anxiety) Qty: 20 0RF doxycycline monohydrate 100 mg tablet 100 mg PO BID 10 Days Qty: 20 0RF cephalexin 500 mg capsule 500 mg PO Q6H 10 Days Qty: 40 0RF acetaminophen [Tylenol Extra Strength] 500 mg tablet 1,000 mg PO QID PRN (Reason: fever or pain) Qty: 14 0RF ibuprofen 800 mg tablet 800 mg PO Q8H PRN (Reason: pain) Qty: 14 0RF doxycycline hyclate 100 mg tablet 100 mg PO BID Qty: 20 0RF doxycycline hyclate 100 mg capsule 100 mg PO BID Qty: 20 0RF cephalexin 500 mg capsule 500 mg PO QID Qty: 28 0RF acetaminophen 500 mg capsule 1,000 mg PO Q6H PRN (Reason: fever or pain) Qty: 14 0RF ibuprofen 600 mg tablet 600 mg PO BID PRN (Reason: pain) Qty: 14 0RF methadone 10 mg/mL Syringe 60 mg PO DAILY Interventions: ED Discharge Assessment Last Done: 06/30/23 22:11 Discharge Date/Time: 06/30/23 21:45 Print Language: Hungarian
[2023-06-30 20:01] VITALS: BP 116/73; PULSE 72; RESP 17; TEMP 37.2; O2SAT 96
[2023-06-30 20:57] LABS: MANUAL DIFF FLAG NO
[2023-06-30 20:58] LABS: Basophils Percent Auto 0.3 % (0-2); Eosinophils Absolute Auto 0.1 X10*3/uL (0.0-0.4); Eosinophils Percent Auto 2.1 % (0-4); Hematocrit 35.5 % (42.0-52.0); Hemoglobin 11.9 g/dl (14.0-18.0); Imm Gran Abs Auto 0.01 X10*3/uL (0.00-0.03); Imm Gran Pct Auto 0.2 % (0.0-0.4); Lymphocytes Absolute Auto 3.3 X10*3/uL (1.2-4.9); Lymphocytes Percent Auto 54.1 % (20-40); Mean Corpuscular HGB Conc 33.5 g/dl (31.0-36.0); Mean Corpuscular Hemoglobin 30.9 pg (27.0-33.0); Mean Corpuscular Volume 92.2 fL (80.0-98.0); Monocytes Absolute Auto 0.5 X10*3/uL (0.1-1.2); Monocytes Percent Auto 8.3 % (2-11); Neutrophils Absolute Auto 2.2 x10*3/uL (2.0-8.3); Platelet Count 154 X10*3/uL (160-400); Red Blood Count 3.85 X10*6/uL (4.60-5.80); Red Cell Distribution Width 13.3 % (11.0-16.0); White Blood Count 6.2 X10*3/uL (4.8-10.8)
[2023-06-30 21:13] LABS: Alanine Aminotransferase 42 U/L (0-40); Albumin Level 3.9 g/dL (3.5-5.0); Alkaline Phosphatase 55 U/L (39-117); Anion Gap 12 (12-20); Aspartate Amino Transferase 34 U/L (5-37); Blood Urea Nitrogen 11 mg/dL (9-16); Calcium 9.3 mg/dL (8.4-10.2); Carbon Dioxide 26 mmol/L (22-29); Chloride 107 mmol/L (96-108); Creatinine Clr Calc Pharmacy 140.9; Estimated Glomerular Filt Rate > 60; Glucose Random 109 mg/dL (60-115); Magnesium 2.1 mg/dL (1.6-2.6); Sodium 141 mmol/L (135-145); Total Protein 6.9 g/dL (6.5-8.0)
[2023-06-30 21:21] LABS: Troponin-I High Sensitivity < 2.7 ng/L (<3.5-35.0)
[2023-06-30 22:11] VITALS: BP 116/73; PULSE 72; RESP 17; TEMP 37.2; O2SAT 96
== END 2023-06-30 21:45 | disposition home or self-care (01) ==
PROVIDERS: Emergency Provider Internal Medicine
DX: R07.89 Other chest pain (principal); F19.10 Other psychoactive substance abuse, uncomplicated; F11.20 Opioid dependence, uncomplicated
CPT/HCPCS: 36415; 80053; 82550; 83735; 84484; 85025; 93005; 99283; 99284

== ENCOUNTER → 2023-06-30 19:53 | Outpatient (BNV) | payer OTHER, SELFPAY | PROVIDERS: Emergency Provider Internal Medicine; Visit Provider Internal Medicine Cardiovascular Disease | DX: R07.9 Chest pain, unspecified (principal) | CPT/HCPCS: 93010 ==

== ENCOUNTER 2025-02-03 09:41 | Emergency (ER) | payer OTHER, SELFPAY ==
--- NOTE | ~2025-02-03 | XR_ITS ---
EXAMINATION: XR CHEST CLINICAL INFORMATION: recent pna, still dyspneic COMPARISON: X-ray 06/30/2022 TECHNIQUE: 2 views of the chest were obtained. FINDINGS: The cardiomediastinal silhouette is within normal limits. The lungs are symmetrically expanded. Stable central pulmonary vasculature.. There is no focal consolidation, edema, or effusion. No pneumothorax. No acute osseous abnormality. XR/XR chest 2V IMPRESSION: No evidence of focal consolidation. Electronically signed by: Kamari Lassiter MD 02/03/2025 11:01 AM CHRIS
[2025-02-03 09:44] VITALS: BP 145/88; PULSE 87; RESP 16; TEMP 36.3; O2SAT 95; BMI 30.1
--- NOTE | 2025-02-03 09:47 | ED.GENADULT ---
HPI - General Adult General Chief complaint: General Medical Stated complaint: exposed to virus Time Seen by Provider: 02/03/25 10:26 Source: patient, RN notes reviewed and old records reviewed Mode of arrival: ambulatory Limitations: no limitations History of Present Illness ED Provider: Stephane HPI narrative: Patient is a 39 year old male with history of polsubstance use presenting to the ED stating that he may have been exposed to HIV between 10pm-3am last night via intercourse. Requesting HIV testing and prophylaxis. Told by sexual partner that they might be positive for HIV, but patient states they likely are positive. Also states that he was recently treated for pneumonia, but continues to have cough and dyspnea. MD complaint: HIV exposure Related Data Home Medications ?Medication ?Instructions ?Recorded ?Confirmed methadone 10 mg/mL oral syringe 60 mg PO DAILY 06/15/22 06/23/23 (FOR ORAL USE ONLY) Previous Rx's ?Medication ?Instructions ?Recorded clonazepam 0.5 mg tablet (Klonopin) 0.5 mg PO BID PRN anxiety #20 tabs 04/04/22 lamotrigine 150 mg tablet 150 mg PO BID #60 tabs 04/04/22 (Lamictal) acetaminophen 500 mg tablet 1,000 mg (2 x 500 mg) PO QID PRN 04/24/22 (Tylenol Extra Strength) fever or pain #14 tabs cephalexin 500 mg capsule 500 mg PO Q6H 10 days #40 caps 04/24/22 doxycycline monohydrate 100 mg 100 mg PO BID 10 days #20 tabs 04/24/22 tablet ibuprofen 800 mg tablet 800 mg PO Q8H PRN pain #14 tabs 04/24/22 acetaminophen 500 mg capsule 1,000 mg (2 x 500 mg) PO Q6H PRN 06/06/22 fever or pain #14 caps cephalexin 500 mg capsule 500 mg PO QID #28 caps 06/06/22 doxycycline hyclate 100 mg capsule 100 mg PO BID #20 caps 06/06/22 ibuprofen 600 mg tablet 600 mg PO BID PRN pain #14 tabs 06/14/22 doxycycline hyclate 100 mg tablet 100 mg PO BID #20 tabs 06/23/22 ibuprofen 600 mg tablet 600 mg PO Q6H PRN fever or pain 06/30/23 #30 tabs emtricitabine 200 mg-tenofovir 1 tab PO DAILY #7 tabs 02/03/25 disoproxil fumarate 300 mg tablet ondansetron 4 mg disintegrating 4 mg PO Q8H PRN nausea and 02/03/25 tablet vomiting #10 tabs raltegravir 400 mg tablet 400 mg PO BID #14 tabs 02/03/25 Allergies Allergy/AdvReac Type Severity Reaction Status Date / Time No Known Allergies (No Known Allergy Verified 02/03/25 09:50 Allergies*) Review of Systems Review of Systems: As per HPI Yes all other systems are reviewed and are negative Constitutional: Constitutional: Reports as per HPI [facility] Past Medical History Medical History Substance abuse Social History Social History Alcohol intake: current Alcohol intake frequency: a few times a week Alcohol type: hard liquor Substance Use Type: Crack/Cocaine and Heroin Advance Directives: No Advance Directives Information Provided: Yes Physical Exam ED Vital Signs: Vital Signs - 24 hr 02/03/25 09:44 Temperature 97.4 F Pulse Rate 87 Respiratory Rate 16 Blood Pressure 145/88 H Pulse Oximetry 95 Oxygen Delivery Method Room Air BMI result Body Mass Index 30.1 Vital signs have been reviewed and appear to be correct. Blood pressure normal. Heart rate normal. Respiratory rate normal. Temperature normal. Oxygen saturation normal. Const General: cooperative, healthy appearing and no acute distress Orientation/consciousness: oriented to person, oriented to place, oriented to time and patient oriented x3 Limitations: no limitations [facility] Head: Yes normocephalic and Yes atraumatic Ears: external ears normal General nose exam: Normal external nose present Face and sinus: Yes face symmetric Mouth: oropharynx normal and moist mucous membranes Throat: Yes uvula midline Eyes Pupils: Equal, round and reactive pupils present Neck Neck: Yes normal visual inspection and Yes supple Resp Effort & Inspection: normal respiratory effort and able to speak in complete sentences Cardio Rate: regular rate Rhythm: regular rhythm Heart sounds: S1 normal heart sound present and S2 normal heart sound present GI Palpation (GI): Soft to palpation and nontender Auscultation: normoactive bowel sounds General: Yes no CVA tenderness Back/Spine/Pelvis Back: no CVA tenderness Skin General skin exam: elasticity normal and turgor normal Neuro General: oriented to person, oriented to place, oriented to time, patient oriented x3, moves all extremities, no focal motor deficits and CN's II-XI intact bilaterally Cranial nerves: Yes Equal, round and reactive pupils present Cognition (Neuro): normal cognition Extrem General: Yes full ROM, Yes no pedal edema and Yes no calf tenderness Psych Mental Status: mental status grossly normal Affect: normal affect Thought process: Normal thought process present Medications Administered Discontinued Medications Generic Name Dose Route Start Last Admin Trade Name Jorge PRN Reason Stop Dose Admin Raltegravir/Emtricitabine/Tenofovir 1 kit 02/03/25 10:28 02/03/25 10:36 Post Exposure Medication Kit PO 02/03/25 10:29 1 kit ONCE ONE Administration Medical Decision Making Medical Decision Making [facility] Narrative: Patient is a 39 year old male with history of polsubstance use presenting to the ED stating that he may have been exposed to HIV between 10pm-3am last night via intercourse. On exam patient is awake, A+Ox3, VS WNL, afebrile, normal neurological exam without focal deficits, physical exam findings as above. Given reported symptoms and physical exam findings, initial differential includes but is not limited to HIV exposure, bronchitis, pneumonia. Labs notable for mildly elevated transaminases. X-ray chest notable for no evidence of pneumonia. My interpretation is in agreement with the radiologist's interpretation. Discussed with patient that typically HIV exposure is not managed in the ED as he will need ongoing follow up, and that he will need to follow up with [facility]. Given that this is a holiday week, we will initiate post exposure prophylaxis and instructed patient that he will need to continue all additional follow up with [facility]. Patient provided with PEP kit containing 4 days of treatment, as well as an additional 7 days of PEP sent to pharmacy. Also sent prescription for zofran for nausea. Advised to abstain from intercourse until cleared by [facility]. Return precautions discussed. Patient verbalized understanding of and agreement with plan. Differential Diagnosis Differential Diagnoses: The differential diagnosis associated with the presentation includes as per [facility] Admission/Observation Consideration of admission/observation: Escalation of care including admission/observation considered Patient would have been admitted to the hospital and transferred to appropriate facility had their clinical presentation warranted hospital admission. Lab Data [facility] Lab Attestation statement: I reviewed the patient's lab results. as per [facility] 02/03/25 10:02 02/03/25 10:02 Labs: Lab Results 02/03/25 Range/Units 10:02 WBC 2.9 L (4.8-10.8) X10*3/uL RBC 4.32 L (4.60-5.80) X10*6/uL Hgb 13.4 L (14.0-18.0) g/dl Hct 39.2 L (42.0-52.0) % MCV 90.7 (80.0-98.0) fL MCH 31.0 (27.0-33.0) pg MCHC 34.2 (31.0-36.0) g/dl RDW 13.5 (11.0-16.0) % Plt Count 151 L (160-400) X10*3/uL MPV 9.4 (9.4-12.4) fL Immature Gran % (Auto) 0.0 (0.0-0.4) % Neut % (Auto) 36.7 L (45-73) % Lymph % (Auto) 54.7 H (20-40) % [place] % (Auto) 8.0 (2-11) % Eos % (Auto) 0.3 (0-4) % Baso % (Auto) 0.3 (0-2) % Lymph # (Auto) 1.6 (1.2-4.9) X10*3/uL [place] # (Auto) 0.2 (0.1-1.2) X10*3/uL Eos # (Auto) 0.0 (0.0-0.4) X10*3/uL Baso # (Auto) 0.0 (0.0-0.2) X10*3/uL Abs Immat Gran (auto) 0.00 (0.00-0.03) X10*3/uL Absolute Neuts (auto) 1.1 L (2.0-8.3) x10*3/uL Absolute Nucleated RBC 0.000 (0.0-0.012) X10*3/uL Nucleated RBC % (auto) 0.0 (0.0-0.2) /100WBC Smear Tech's Comments VERIFIED Sodium 141 (135-145) mmol/L Potassium 4.0 (3.3-5.1) mmol/L Chloride 105 (96-108) mmol/L Carbon Dioxide 27 (22-29) mmol/L Anion Gap 13 (12-20) BUN 11 (9-16) mg/dL Creatinine 0.71 (0.5-1.4) mg/dL Estim Creat Clear Calc 163.4 Estimated GFR > 60 Random Glucose 83 (60-115) mg/dL Calcium 9.0 (8.4-10.2) mg/dL Total Bilirubin 0.9 (0.0-1.0) mg/dL AST 97 H (5-37) U/L ALT 74 H (0-40) U/L Alkaline Phosphatase 50 (39-117) U/L Total Protein 7.4 (6.5-8.0) g/dL Albumin 4.4 (3.5-5.0) g/dL HIV 1&2 Ab/P24 Ag 4thGn Nonreactive (Nonreactive) Independent Interpretation I performed an independent interpretation of an: Plain X-Ray Interpretation: CXR is without evidence of pneumonia Radiology Impression Discussion of test interpretation with radiology: I have reviewed the radiologist's reading. Radiologist Impression: X-ray 06/30/2022 TECHNIQUE: 2 views of the chest were obtained. FINDINGS: The cardiomediastinal silhouette is within normal limits. The lungs are symmetrically expanded. Stable central pulmonary vasculature.. There is no focal consolidation, edema, or effusion. No pneumothorax. No acute osseous abnormality. XR/XR chest 2V IMPRESSION: No evidence of focal consolidation. External Record Review External record reviewed: Inpatient record, Office record and Outpatient record Prescription Management I considered prescription management with: Other Discharge Plan Discharge Clinical Impression: HIV exposure Patient Disposition: Home, Self-Care Instructions: PEP (Postexposure Prophylaxis) (ED) Additional Instructions: You were evaluated in the emergency department today after possible HIV exposure. You were started on HIV prophylaxis in the ED today but it is VERY IMPORTANT THAT YOU FOLLOW UP WITH [facility]. You were given a 4-day supply in the ED today and an additional 7 day prescription was sent to the pharmacy but you will need to go to [facility] for the additional course of medication as discussed. Do not have intercourse until cleared by [facility]. Your chest x-ray did not show any evidence of pneumonia. Prescriptions: New raltegravir 400 mg tablet 400 mg PO BID Qty: 14 0RF ondansetron 4 mg tablet,disintegrating 4 mg PO Q8H PRN (Reason: nausea and vomiting) Qty: 10 0RF emtricitabine-tenofovir (TDF) 200-300 mg tablet 1 tab PO DAILY Qty: 7 0RF No Action lamotrigine [Lamictal] 150 mg tablet 150 mg PO BID Qty: 60 0RF clonazepam [Klonopin] 0.5 mg tablet 0.5 mg PO BID PRN (Reason: anxiety) Qty: 20 0RF doxycycline monohydrate 100 mg tablet 100 mg PO BID 10 Days Qty: 20 0RF cephalexin 500 mg capsule 500 mg PO Q6H 10 Days Qty: 40 0RF acetaminophen [Tylenol Extra Strength] 500 mg tablet 1,000 mg PO QID PRN (Reason: fever or pain) Qty: 14 0RF ibuprofen 800 mg tablet 800 mg PO Q8H PRN (Reason: pain) Qty: 14 0RF doxycycline hyclate 100 mg tablet 100 mg PO BID Qty: 20 0RF doxycycline hyclate 100 mg capsule 100 mg PO BID Qty: 20 0RF cephalexin 500 mg capsule 500 mg PO QID Qty: 28 0RF acetaminophen 500 mg capsule 1,000 mg PO Q6H PRN (Reason: fever or pain) Qty: 14 0RF ibuprofen 600 mg tablet 600 mg PO BID PRN (Reason: pain) Qty: 14 0RF methadone 10 mg/mL Syringe 60 mg PO DAILY ibuprofen 600 mg tablet 600 mg PO Q6H PRN (Reason: fever or pain) Qty: 30 0RF Print Language: Japanese
[2025-02-03 10:07] LABS: Hematocrit 39.2 % (42.0-52.0); Hemoglobin 13.4 g/dl (14.0-18.0); Imm Gran Abs Auto 0.00 X10*3/uL (0.00-0.03); Imm Gran Pct Auto 0.0 % (0.0-0.4); Lymphocytes Absolute Auto 1.6 X10*3/uL (1.2-4.9); MANUAL DIFF FLAG SCAN; Mean Corpuscular HGB Conc 34.2 g/dl (31.0-36.0); Mean Corpuscular Hemoglobin 31.0 pg (27.0-33.0); Mean Corpuscular Volume 90.7 fL (80.0-98.0); NRBC Abs Auto 0.000 X10*3/uL (0.0-0.012); NRBC Pct Auto 0.0 /100WBC (0.0-0.2); Platelet Count 151 X10*3/uL (160-400); Red Blood Count 4.32 X10*6/uL (4.60-5.80); SCAN SMEAR FLAG 1; White Blood Count 2.9 X10*3/uL (4.8-10.8)
[2025-02-03 10:21] LABS: Alanine Aminotransferase 74 U/L (0-40); Albumin Level 4.4 g/dL (3.5-5.0); Alkaline Phosphatase 50 U/L (39-117); Anion Gap 13 (12-20); Aspartate Amino Transferase 97 U/L (5-37); Blood Urea Nitrogen 11 mg/dL (9-16); Calcium 9.0 mg/dL (8.4-10.2); Carbon Dioxide 27 mmol/L (22-29); Chloride 105 mmol/L (96-108); Creatinine Clr Calc Pharmacy 163.4; Estimated Glomerular Filt Rate > 60; Potassium 4.0 mmol/L (3.3-5.1); Sodium 141 mmol/L (135-145); Total Protein 7.4 g/dL (6.5-8.0)
[2025-02-03] MEDS: Post Exposure Medication Kit 1 KIT PO (10:36)
--- OUTSIDE RECORDS SUMMARY | 2025-02-03 10:36 | XMS_ITS | Encounter Summary ---
Author Organization [employer] Address [address] [place] [address] Care Team Providers Care Wool Washer Name Role Phone Claire Dowell Primary Care Provider [phone] Reason for Visit * Reason Comments Med Refill Encounter Details Date Type Department Care Team (Late st Contact Info) Description 04/04/2022 Refill [facility] [address] [place] [address] Ozzie Harris FNP Social History Tobacco Use Types Packs/Day Years Used Date Smoking Tobacco: Never Assessed Sex and Gender Information Value Date Recorded Sex Assigned at Male 12/11/2021 10:23 AM EDT Legal Sex Male 10:23 AM EDT Gender Identity Male 05/30/2022 3:31 PM EDT Sexual Orientation Choose not to disclose 2021 10:23 AM EDT documented as of this encounter Plan of Treatment Not on file documented as of this encounter Visit Diagnoses Not on filedocumented in this encounter Care Teams Wool Washer Relationship Specialty Start Date End Date Claire Dowell FNP [address] [place] [address] PCP - General Family Medicine 06/29/22 07/11/22 documented as of this encounter
--- OUTSIDE RECORDS SUMMARY | 2025-02-03 10:36 | XMS_ITS | Clinical Summary ---
Author Organization [facility] Address [address] [place] [address] Phone Care Team Providers Care Mineral [employer] Ins[employer] Supervisor Name Role Phone Physician, No Pcp Primary Care Provider Unavaila ble Allergies No known active allergies Medications ALPRAZolam (XANAX) 1 mg tablet Take 1 tablet (1 mg total) by mouth 3 (three) times a day if needed for anxiety. Max Daily Amount: 3 mg 4 Active amoxicillin (AMOXIL) 500 mg tablet Take 1 tablet (500 mg total) by mouth every 8 (eight) hours. 4 Active ARIPiprazole (ABILIFY) 5 mg tablet Take 2 tablets (10 mg total) by mouth 2 (two) times a day. 4 Active cloNIDine (CATAPRES) 0.1 mg tablet Take 1 tablet (0.1 mg total) by mouth 3 (three) times a day. 4 Active gabapentin (NEURONTIN) 300 mg capsule Take 1 capsule (300 mg total) by mouth 3 (three) times a day. 4 Active hydrOXYzine pamoate (VISTARIL) 50 mg capsule Take 1 capsule (50 mg total) by mouth if needed for anxiety (SECOND LINE ANXIETY). 4 Active ibuprofen (ADVIL,MOTRIN) 800 mg tablet Take 1 tablet (800 mg total) by mouth every 8 (eight) hours if needed for mild pain. 4 Active lithium 300 mg capsule Take 1 capsule (300 mg total) by mouth 2 (two) times a day with meals. 4 Active naloxone (NARCAN) 4 mg/0.1 mL nasal spray Administer 1 each (4 mg total) into affected nostril(s) if needed for opioid reversal. 4 Active traZODone (DESYREL) 50 mg tablet Take 1 tablet (50 mg total) by mouth at bedtime. 4 Active melatonin 3 mg tablet Take 1 tablet (3 mg total) by mouth at bedtime as needed. for insomnia 4 Active amLODIPine (NORVASC) 5 mg tablet Take 1 tablet (5 mg total) by mouth 1 (one) time each day. 5 Active clonazePAM (KlonoPIN) 1 mg tablet Take 1 tablet (1 mg total) by mouth 1 (one) time each day. 5 Active ARIPiprazole (ABILIFY) 20 mg tablet Take 1 tablet (20 mg total) by mouth at bedtime. 5 Active OXcarbazepine (TRILEPTAL) 300 mg tablet Take 3 tablets (900 mg total) by mouth 2 (two) times a day. 5 Active Active Problems No known active problems Encounters Date Type Department Care Team Description 01/26/2025 7:55 PM EST - 01/27/2025 1:35 PM [facility] Emergency [address] [place] [phone] Albert Núñez MD Mogul, Ashley, MD Homicidal ideations (Primary Dx); Encounter for psychiatric assessment; Polysubstance abuse ([facility] V24, [facility] V28) Discharge Disposition: Home or Self Care 12/27/2024 11:29 PM EST - 12/28/2024 5:40 AM [facility] Emergency [address] [place] [phone] Opioid intoxication without complication ([facility] V24, [facility] V28) (Primary Dx) Discharge Disposition: Home or Self Care 11/15/2024 1:25 AM EDT - 11/15/2024 9:20 AM EDT [facility] Emergency [address] [place] [phone] Gato Burkett MD Mogul, Ashley, MD Opioid overdose, accidental or unintentional, initial encounter ([facility] V24, [facility] V28) (Primary Dx); Elevated liver enzymes Discharge Disposition: Home or Self Care from Last 3 Months Medical History Medical History Date Comments Anxiety DX:Anxiety Bipolar disorder (CMS/HCC V24, CMS/HCC V28) DX:Bipolar disorder (HCC) Bipolar 1 disorder (CMS/HCC V24, CMS/HCC V28) Leg muscle spasm Family History Relation Name Status Comments Father Alive Maternal Grandfather Maternal Grandmother Alive Mother Alive Paternal Grandfather Paternal Grandmother Alive Social History Tobacco Use Types Packs/Day Years Used Date Smoking Tobacco: Every Day Alcohol Use Standard Drinks/Week Comments No 0 (1 standard drink = 0.6 oz pur e alcohol) Sex and Gender Information Value Date Recorded Sex Assigned at Male 05/07/2024 5:26 PM EDT Legal Sex Male 12:16 PM EST Gender Identity Male 05/07/2024 5:26 PM EDT Sexual Orientation Choose not to disclose 2024 5:26 PM EDT Last Filed Vital Signs Vital Sign Reading Time Taken Comments Blood Pressure 130/72 01/27/2025 11:55 AM EST Pulse 85 01/27/2025 11:55 AM EST Temperature 36.8 C (98.2 F) 01/27/2025 11:55 AM EST Respiratory Rate 18 01/27/2025 11:55 AM EST Oxygen Saturation 96% 01/27/2025 11:55 AM EST Inhaled Oxygen Concentration - - Weight 99.8 kg (220 lb) 01/26/2025 7:48 PM EST Height 177.8 cm (5' 10 ) 01/26/2025 7:48 PM EST Body Mass Index 31.57 01/26/2025 7:48 PM EST Plan of Treatment Health Maintenance Due Date Last Done Comments Non-Opioid Controlled Substance Agreement 1986 Hepatitis A Vaccines (1 of 2 - Risk 2-dose series) 2005 Hepatitis B Vaccines (1 of 3 - 19+ 3-dose series) 2005 Pneumococcal Vaccine: Pediatrics (0 to 5 Years) and At-Risk Patients (6 to 49 Years) (1 of 2 - PCV) 2005 HPV Vaccines (1 - 3-dose SCDM series) 2013 Cholesterol Screening (Lipid Panel) 10/07/2023 HIV Screening 10/07/2023 Hepatitis C Screening 10/07/2023 Social Influencers of Health Screening 10/07/2023 Depression Screening 02/12/2024 COVID-19 Vaccine (3 - season) 2024 07/17/2020, 06/26/2020 Influenza Vaccine (#1) 2024 Drug Screen 01/26/2026 01/26/2025, 10/06/2024, 05/07/2024, Additional history exists DTaP,Tdap,and Td Vaccines (4 - Td or Tdap) 04/08/2033 04/08/2023, 06/15/2022, 04/08/2019 RSV Immunization Adult Patients (1 - 1-dose 75+ series) 2061 HIB Vaccines Aged Out No longer eligi ble based on patient's age to complete this topic IPV Vaccines Aged Out No longer eligi ble based on patient's age to complete this topic MMR Vaccines Aged Out No longer eligi ble based on patient's age to complete this topic Meningococcal ACWY Vaccine Aged Out N o longer eligible based on patient's age to complete this topic Meningococcal B Vaccine Aged Out No l onger eligible based on patient's age to complete this topic RSV Immunization Patients Under 20 months Aged Out No longer eligible based on patient's age to complete this topic Varicella Vaccines Aged Out No longer eligible based on patient's age to complete this topic Procedures Procedure Name Priority Date/Time Associated Diagnosis Comments ECG ANNOTATED 02/01/2025 RHYTHM ECG, REPORT Routine 01/26/2025 10 :50 PM EST CBC WITH AUTO DIFFERENTIAL STAT 01/26/2025 8:51 PM EST SALICYLATE LEVEL STAT 01/26/2025 8:51 PM EST ACETAMINOPHEN LEVEL STAT 01/26/2025 8 :51 PM EST ETHANOL STAT 01/26/2025 8:51 PM EST COMPREHENSIVE METABOLIC PANEL STAT 01/26/2025 8:51 PM EST CBC AND DIFFERENTIAL STAT 01/26/2025 8:51 PM EST ECG 12-LEAD STAT 01/26/2025 8:11 PM EST METHADONE SCREEN, URINE STAT 01/26/2025 8:04 PM EST PHENCYCLIDINE, URINE STAT 01/26/2025 8:04 PM EST BUPRENORPHINE SCREEN, URINE STAT 01/26/2025 8:04 PM EST DRUG ABUSE SCREEN 8A PANEL, URINE STAT 01/26/2025 8:04 PM EST POCT GLUCOSE BLOOD Routine 12/28/2024 12 :34 AM EST DRUG ABUSE SCREEN 8A PANEL, URINE STAT 11/15/2024 6:35 AM EDT ACETAMINOPHEN LEVEL STAT Add-on 11/15/2024 1 :58 AM EDT SALICYLATE LEVEL STAT Add-on 11/15/2024 1:58 AM EDT ETHANOL STAT Add-on 11/15/2024 1:58 AM EDT COMPREHENSIVE METABOLIC PANEL STAT 11/15/2024 1:58 AM EDT CBC WITH AUTO DIFFERENTIAL STAT 11/15/2024 1:38 AM EDT CBC AND DIFFERENTIAL STAT 11/15/2024 1:38 AM EDT FL CRITICAL CARE 30-74 MINUTES Routine 11/15/2024 1:10 AM EDT from Last 3 Months Results * ECG-Annotated (02/01/2025) us Provider Onbase ECG ORDERABLES Final Result * RHYTHM ECG, REPORT (01/26/2025 10:50 PM EST) Narrative Albert Núñez MD - 01/26/2025 10:50 PM EST Albert Núñez MD 01/28/2025 12:41 PM ECG Rhythm Interpretation and Report Date/Time: 01/26/2025 10:50 PM Performed by: Albert Núñez MD Authorized by: Albert Núñez MD ECG interpreted by ED Physician in the absence of a wax pattern coater: yes Interpretation: Interpretation: normal Details: Normal sinus rhythm with a ventricular rate of 65 bpm. Normal FL, QRS, QTc, axis. No acute ischemic changes. us Albert Núñez MD ECG ORDERABLES Final Result * (ABNORMAL) CBC auto differential (01/26/2025 8:51 PM EST) Only the most recent of2 resultswithin the time period is included. WBC 5.4 4.8 - 10.8 K/mcL LAB HEMETOLOGY METHOD 01/26/2025 9:16 PM [facility] RBC 4.30(L) 4.50 - 5.50 M/mcL LAB HEMETOLOGY METHOD 01/26/2025 9:16 PM [facility] Hemoglobin 13.2(L) 13.5 - 17.5 g/dL LAB HEMETOLOGY METHOD 01/26/2025 9:16 PM [facility] Hematocrit 39.2(L) 42.0 - 54.0 % LAB HEMETOLOGY METHOD 01/26/2025 9:16 PM [facility] MCV 90.3 79.0 - 98.0 FL LAB HEMETOLOGY METHOD 01/26/2025 9:16 PM [facility] MCH 30.4 27.0 - 32.0 pcg LAB HEMETOLOGY METHOD 01/26/2025 9:16 PM [facility] MCHC 33.7 32.0 - 37.0 g/dL LAB HEMETOLOGY METHOD 01/26/2025 9:16 PM [facility] RDW 13.0 11.0 - 15.0 % LAB HEMETOLOGY METHOD 01/26/2025 9:16 PM [facility] Platelets 201 130 - 400 K/mcL LAB HEMETOLOGY METHOD 01/26/2025 9:16 PM [facility] MPV 10.2 7.0 - 11.0 FL LAB HEMETOLOGY METHOD 01/26/2025 9:16 PM [facility] NRBC 0.0 <1.0 % LAB HEMETOLOGY METHOD 01/26/2025 9:16 PM [facility] NRBC Absolute 0.00 <0.10 K/mcL LAB HEMETOLOGY METHOD 01/26/2025 9:16 PM [facility] Neutrophils Relative 45.8 % LAB HEMETOLOGY METHOD 01/26/2025 9:16 PM [facility] Lymphocytes Relative 43.5 % LAB HEMETOLOGY METHOD 01/26/2025 9:16 PM [facility] Monocytes Relative 9.5 % LAB HEMETOLOGY METHOD 01/26/2025 9:16 PM [facility] Eosinophils Relative 0.6 % LAB HEMETOLOGY METHOD 01/26/2025 9:16 PM [facility] Basophils Relative 0.4 % LAB HEMETOLOGY METHOD 01/26/2025 9:16 PM [facility] Immature Granulocytes Relative 0.2 % LAB HEMETOLOGY METHOD 01/26/2025 9:16 PM [facility] Neutrophils Absolute 2.46 1.50 - 7.00 K/mcL LAB HEMETOLOGY METHOD 01/26/2025 9:16 PM [facility] Lymphocytes Absolute 2.33 1.00 - 5.00 K/mcL LAB HEMETOLOGY METHOD 01/26/2025 9:16 PM [facility] Monocytes Absolute 0.51 0.20 - 1.00 K/mcL LAB HEMETOLOGY METHOD 01/26/2025 9:16 PM [facility] Eosinophils Absolute 0.03 0.00 - 0.50 K/mcL LAB HEMETOLOGY METHOD 01/26/2025 9:16 PM EST [facility] Basophils Absolute 0.02 0.00 - 0.20 K/[facility] LAB HEMETOLOGY METHOD 01/26/2025 9:16 PM EST [facility] Immature Granulocytes Absolute 0.01 0.00 - 0.03 K/[facility] LAB HEMETOLOGY METHOD 01/26/2025 9:16 PM EST [facility] Blood Venous blood specimen / Unknown Venipuncture / Unknown 01/26/2025 8:51 PM EST 01/26/2025 9:10 PM EST us Albert Núñez MD LAB BLOOD ORDERABLES Final Res ult Performing Organization Address [facility]/ZIP Co de Phone Number [facility] [address] [place] [address], [place] [phone] * Ethanol (01/26/2025 8:51 PM EST) Only the most recent of2 resultswithin the time period is included. Ethanol Level <3 0 - 10 mg/dL 01/26/2025 9:43 PM EST [facility] Blood Venous blood specimen / Unknown Venipuncture / Unknown 01/26/2025 8:51 PM EST 01/26/2025 9:10 PM EST us Albert Núñez MD LAB BLOOD ORDERABLES Final Res ult Performing Organization Address City/[facility]/ZIP Co de Phone Number [facility] [address] [place] [address], [place] [phone] * (ABNORMAL) Acetaminophen level (01/26/2025 8:51 PM EST) Only the most recent of2 resultswithin the time period is included. Acetaminophen Level <2.0(L) 10.0 - 30.0 mcg/mL 01/26/2025 9:36 PM EST [facility] Blood Venous blood specimen / Unknown Venipuncture / Unknown 01/26/2025 8:51 PM EST 01/26/2025 9:10 PM EST Albert Núñez MD LAB BLOOD ORDERABLES Final Res ult Performing Organization Address City/[facility]/ZIP Co de Phone Number [facility] [address] [place] [address], [place] [phone] * Salicylate level (01/26/2025 8:51 PM EST) Only the most recent of2 resultswithin the time period is included. Salicylate Level <3.0 2.0 - 29.0 mg/dL 01/26/2025 9:43 PM EST [facility] Blood Venous blood specimen / Unknown Venipuncture / Unknown 01/26/2025 8:51 PM EST 01/26/2025 9:10 PM EST us Albert Núñez MD LAB BLOOD ORDERABLES Final Res ult Performing Organization Address City/[facility]/ZIP Co de Phone Number [facility] [address] [place] [address], [place] [phone] * (ABNORMAL) Comprehensive metabolic panel (01/26/2025 8:51 PM EST) Only the most recent of2 resultswithin the time period is included. Sodium 141 133 - 145 mmol/L 01/26/2025 9:36 PM EST [facility] Potassium 4.2 3.5 - 5.5 mmol/L 01/26/2025 9:36 PM EST [facility] Chloride 105 96 - 110 mmol/L 01/26/2025 9:36 PM EST [facility] CO2 28 21 - 32 mmol/L 01/26/2025 9:36 PM EST [facility] Anion Gap 8 3 - 11 01/26/2025 9:36 PM [facility] Glucose 85 70 - 100 mg/dL 01/26/2025 9:36 PM [facility] BUN 17 5 - 25 mg/dL 01/26/2025 9:36 PM [facility] Creatinine 0.86 0.70 - 1.30 mg/dL 01/26/2025 9:36 PM [facility] eGFR 114 >=60 mL/min/1. 73m2 01/26/2025 9:36 PM [facility] Comment:Calculation based on the Chronic Kidney Disease Epidemiology Collaboration (CKD-EPI) equation refit without adjustment for race. BUN/Creatinine Ratio 19.8 01/26/2025 9:36 PM [facility] Calcium 8.9 8.5 - 10.5 mg/dL 01/26/2025 9:36 PM [facility] AST (SGOT) 59(H) 10 - 42 unit/L 01/26/2025 9:36 PM [facility] ALT (SGPT) 96(H) 10 - 60 unit/L 01/26/2025 9:36 PM [facility] Alkaline Phosphatase 58 42 - 121 unit/L 01/26/2025 9:36 PM [facility] Total Protein 7.4 6.0 - 8.0 g/dL 01/26/2025 9:36 PM [facility] Albumin 4.2 3.2 - 5.0 g/dL 01/26/2025 9:36 PM [facility] Total Bilirubin 0.9 0.0 - 1.4 mg/dL 01/26/2025 9:36 PM [facility] Blood Venous blood specimen / Unknown Venipuncture / Unknown 01/26/2025 8:51 PM EST 01/26/2025 9:10 PM EST Albert Núñez MD LAB BLOOD ORDERABLES Final Res ult [facility] [address] [place] [address], [place] [phone] * ECG 12 lead (01/26/2025 8:11 PM EST) Ventricular Rate ECG 65 BPM GEMUSE Atrial Rate 65 BPM GEMUSE P-R Interval 172 ms GEMUSE QRS Duration 114 ms GEMUSE Q-T Interval 438 ms GEMUSE QTc 455 ms GEMUSE P Wave Padroni 48 degrees GEMUSE R Padroni 26 degrees GEMUSE T Padroni 35 degrees GEMUSE ECG Interpretation Normal sinus rhythm Normal ECG When compared with ECG of 29-FEB-2024 20:30, Nai-Parki nson-White is no longer Present Confirmed by Wilder RAZO JOHN ([id number]) on 01/27/2025 11:17:40 AM GEMUSE 01/26/2025 8:11 PM EST 01/27/2025 11:17 AM EST Albert Núñez MD ECG ORDERABLES Final Result Performing Organization Address [facility] Co de Phone Number GEMUSE * (ABNORMAL) Drug abuse screen 8a panel, urine (01/26/2025 8:04 PM EST) Only the most recent of2 resultswithin the time period is included. Amphetamine Screen, Ur Negative Negative 01/26/2025 8:46 PM EST [facility] Comment:Certain OTC medicati ons containing ephedrine, phenylephrine, pseudoephedrine and phenylpropanolamine can cause false positive results. Barbiturate Screen, Ur Negative Negative 01/26/2025 8:46 PM EST [facility] Benzodiazepine Screen, Ur Positive(A ) Negative 01/26/2025 8:46 PM EST [facility] Cocaine Screen, Ur Positive(A ) Negative 01/26/2025 8:46 PM EST [facility] Opiate Screen, Ur Positive(A ) Negative 01/26/2025 8:46 PM EST [facility] Cannabinoid (THC) Screen, Ur Positive(A ) Negative 01/26/2025 8:46 PM EST [facility] Comment:Specimens from patie nts taking pantoprazole sodium (Protonix) have been shown to produce false positive results. Oxycodone Screen, Ur Negative Negative 01/11 8:46 PM EST [facility] Fentanyl, Ur Positive(A ) Negative 01/26/2025 8:46 PM EST [facility] Urine Urine specimen obtained by clean catch procedure / Unknown Non-blood Collection / Unknown 01/26/2025 8:04 PM EST 01/26/2025 8:18 PM EST [facility] - 01/26/2025 8:46 PM EST Assay cutoffs: Amphetamines 1000 ng/mL Barbiturates 200 ng/mL Benzodiazepines 200 ng/mL Cocaine 300 ng/mL Fentanyl 1 ng/mL Opiates 300 ng/mL Oxycodone 100 ng/mL THC 50 ng/mL Semi-quantitative assay for screening purposes only. Unconfirmed screening result should not be used for non-medical purposes. *ALTERNATE METHOD CONFIRMATION DONE UPON REQUEST ONLY* Albert Núñez MD LAB URINE ORDERABLES Final Res ult [facility] [address] [place] [address], * Buprenorphine screen, urine (01/26/2025 8:04 PM EST) Buprenorphine Screen Urine Negative Negative 01/26/2025 8:44 PM EST [facility] Urine Urine specimen obtained by clean catch procedure / Unknown Non-blood Collection / Unknown 01/26/2025 8:04 PM EST 01/26/2025 8:18 PM EST Narrative [facility] - 01/26/2025 8:44 PM EST Assay cutoff 5 ng/mL Semi-quantitative assay for screening purposes only. Unconfirmed screening result should not be used for non-medical purposes. *ALTERNATE METHOD CONFIRMATION DONE UPON REQUEST ONLY* Albert Núñez MD LAB URINE ORDERABLES Final Res ult Performing Organization Address [facility] Co de Phone Number [facility] [address] [place] [address], [place] [phone] * (ABNORMAL) Methadone, urine (01/26/2025 8:04 PM EST) Methadone Screen, Urine Positive( A) Negative 01/26/2025 8:45 PM EST [facility] Comment: Assay cutoff 300 ng/mL Semi-quantitative assay for screening purposes only. Unconfirmed screening result should not be used for non-medical purposes. *ALTERNATE METHOD CONFIRMATION DONE UPON REQUEST ONLY* Urine Urine specimen obtained by clean catch procedure / Unknown Non-blood Collection / Unknown 01/26/2025 8:04 PM EST 01/26/2025 8:18 PM EST Albert Núñez MD LAB URINE ORDERABLES Final Res ult Performing Organization Address City/[facility]/ZIP Co de Phone Number [facility] [address] [place] [address], [place] [phone] * Phencyclidine, urine (01/26/2025 8:04 PM EST) PCP Scrn, Ur Negative Negative 01/26/2025 8:46 PM EST [facility] Comment: Assay cutoff 25 ng/mL Semi-quantitative assay for screening purposes only. Unconfirmed screening result should not be used for non-medical purposes. *ALTERNATE METHOD CONFIRMATION DONE UPON REQUEST ONLY* Urine Urine specimen obtained by clean catch procedure / Unknown Non-blood Collection / Unknown 01/26/2025 8:04 PM EST 01/26/2025 8:18 PM EST us Albert Núñez MD LAB URINE ORDERABLES Final Res ult Performing Organization Address [facility]/ZIP Co de Phone Number [facility] [address] [place] [address], [place] [phone] * (ABNORMAL) POCT Glucose, blood (12/28/2024 12:34 AM EST) Glucose POCT 102(H) 70 - 100 mg/dL 12/28/2024 12:34 AM EST [facility] Blood Capillary blood specimen / Unknown 12/28/2024 12:34 AM EST 12/28/2024 12:36 AM EST us Generic Provider Poct LAB POINT OF CARE TEST DOCKED DEVICE UNSOLICITED RESULTS Final Result Performing Organization Address [facility]/ZIP Co de Phone Number [facility] [address] [place] [address], [place] [phone] * [place] CRITICAL CARE 30-74 MINUTES (11/15/2024 1:10 AM EDT) Gato Koroma MD - 11/15/2024 1:10 AM EDT Gato Burkett MD 11/15/2024 9:59 PM Critical Care Performed by: Gato Burkett MD Authorized by: Gato Burkett MD Critical care provider statement: Critical care time (minutes): 36 Total face to face critical care time (minutes): 25 Critical care time was exclusive of: Separately billable procedures and treating other patients Critical care was necessary to treat or prevent imminent or life-threatening deterioration of the following conditions: Respiratory failure, circulatory failure, shock and toxidrome Critical care was time spent personally by me on the following activities: Development of treatment plan with patient or surrogate, discussions with consultants, evaluation of patient's response to treatment, ordering and review of laboratory studies, ordering and review of radiographic studies, re-evaluation of patient's condition, review of old charts, ordering and performing treatments and interventions, examination of patient and obtaining history from patient or surrogate Face to face critical care was time spent personally by me on the following activities: Examination of patient, evaluation of patient's response to treatment, re-evaluation of patient's condition, pulse oximetry, obtaining history from patient or surrogate and development of treatment plan with patient or surrogate I assumed direction of critical care for this patient from another provider in my specialty: no Care discussed with: admitting provider Comments: Opioid overdose requiring IV Narcan and intranasal Narcan with multiple reassessments us Gato Burkett MD IN CLINIC/BEDSIDE ORDERABLES Final Result from Last 3 Months Insurance * Guarantor: Schuyler Verdugo Account Type Relation to Patient Date of Phone Billing Address Personal/Family Self 1985 [address] [place] [address] [employer] Care Teams [employer] Supervisor Relationship Specialty Start Date End Date Physician, No Pcp PCP - General 12/28/23
--- OUTSIDE RECORDS SUMMARY | 2025-02-03 10:36 | XMS_ITS | Patient Health Record ---
Author Organization [facility] Address [address] [place] [address] Support Name Relationship Address Phone Vanna Monk Emergency Contact [address] [place] [address] ALESHIAMARGARET Guarantor Unknown [phone] Allergies No Known Allergies Reason For Referral No Information Medications Medication SIG (Take, Route, Fr equency, Duration) Notes Start Date End Date Status lamoTRIgine 150 MG 1 tablet Orally Once a day; Duration: 30 days 10/11/2022 Not-Taking Baclofen 20 MG TAKE ONE TABLET BY M OUTH ONCE DAILY BEFORE BEDTIME; Duration: 30 Active Pregabalin 225 MG 1 capsule in the aidee bridgette 1 to 3 hours before bedtime Orally Once a day; Duration: 30 days 12/21/2022 Ac tive ALPRAZolam 1 MG TAKE ONE TABLET BY M OUTH THREE TIMES DAILY; Duration: 30 12/25/2022 Active Ibuprofen 800 MG 1 tablet with food o r milk as needed Orally every 12 hrs; Duration: 30 days 12/21/2022 Active Social History Sex Assigned At : Social History Observation Description Sex Assigned At Male Section Notes: Patient denies tobacco or drug consumption - social alcohol Patient denies tobacco or drug consumption - social alcohol Patient denies tobacco or drug consumption - social alcohol Problems Problem Type SNOMED Code ICD Code Onset Dates Problem Status W/U Status Risk Notes Problem Mixed bipolar affective disorder, moderate (234599326) Bipolar disorder, current episode mixed, moderate (F31.62) Active confirmed Problem Hypertriglyceridemia (745092269) Hypertriglyceridemia (E78.1) Active confirmed Problem Sciatica (64019396) Left sciatic nerve pain (M54.32) Active confirmed Plan Of Treatment Pending Test Test Name Order Date Electrocardiogram (ECG) 10/11/2022 Chest X-ray PA and lateral 10/11/2022 US ABDOMINAL 11/13/2022 TESTOSTERONE, FREE 10/11/2022 Insurance Providers Payer Name Payer Address Payer Phone Subscriber Number Group Number Insured Name Patient Relationship to Insured Coverage Start Date Coverage End Date BCBS CAP EXCHANGE [employer] [address] [place] [address] [id number] MARGARET MONK Self - patient is the insured 3 Medical (General) History Medical History History ICD Code bipolar disorder Anxiety disorder
--- OUTSIDE RECORDS SUMMARY | 2025-02-03 10:36 | XMS_ITS | Data Portability ---
Author Organization [facility] Address [address] [place] [address] Assessment No assessment recorded. Plan of Treatment Reminders Order Date Submit Date Provider Last Modified By Organization Details Last Modified Time Details Appointments None recorded. Lab None recorded. Referral None recorded. Procedures None recorded. Surgeries None recorded. Imaging None recorded. Medication Orders ibuprofen 800 mg tablet 2023 [facility]acy #[id number], [address] [place], [address], 4 17:18:44 amoxicillin 500 mg capsule 2023 [facility] #[id number], [address] [place], [address], 4 17:18:45 Patient TargetsNo targets recorded. Patient InstructionsNo instructions recorded. Reason for Referral None Reported. Problems Name Problem SNOMED Code Status Onset Date Resolution Date Notes Provider Name and Address Organization Details Recorded Time Acute periodontitis 32170824 Active 2023 Wallace Hernandez NP [address], [place], [address] [facility] 17:17:49 Problem Notes None recorded. Medical Equipment None Reported. Allergies No known drug allergies Medications Name Sig Start Date Stop Date Status Note LastModified by Organization Details LastModified Time amoxicillin 500 mg capsule Take 1 capsule every 8 hours by oral route with meal(s) for 10 days, for tooth infection . active Not Available Not Available Not Avai lable ibuprofen 800 mg tablet Take 1 tablet 3 times a day by oral route as needed for 10 days, for pain. 05/31/2 024 active Not Available Not Available Not Avai lable Vitals Date Recorded Body height Body mass index (BMI) Body weight Oxygen saturation Pain severity - 0-10 verbal numeric rating [Score] - Reported Heart rate Respiratory rate Body temperature Systolic And Diastolic Provider Name and Address Organization Details Last Updated DateTime 180.34 cm 29.3 kg/m2 96610.4 g 97 % 6 87 /min 18 /min 97.5 [degF] 136/87 mm[Hg] Sheri Johnston PA - [facility] 16:56:37 Social History Question Answer Notes LastModified by Banno Details LastModified Time Tobacco Smoking Status Never Smoker Sheri nix, PA - [facility] 07/12/2023 16:56:06 Have You Had A Flu Shot This Season? No Information not available 07/12/2023 If No, Would You Like A Flu Shot Today? No Information not available 07/12/2023 Have You Had Direct Contact, Or Contact During Intimacy, With Monkeypox Rash, Scabs, Or Body Fluids From A Person With Monkeypox? No Information not available 07/12/2023 What Was The Date Of Your Most Recent Tobacco Screening? 07/12/2023 Information not available 07/12/2023 What Is Your Relationship Status? Single Information not available 07/12/2023 Have You Recently Traveled Abroad? No Information no t available 07/12/2023 Are You Currently In School? No Information not available 07/12/2023 Sex: Unknown Functional Status Question Answer Note LastModified by Outski ion Details LastModified Time How many times per week do you consume alcohol? Less than 1 time per week Information not available 07/12/2023 Do you use any illicit or recreational drugs? No Information not available 07/12/2023 Do you or have you ever used any other forms of tobacco or nicotine? No Information not available 07/12/2023 What is your level of alcohol consumption? Occasional Information not available 07/12/2023 Are you currently employed? Yes Information not available 07/12/2023 Mental Status None recorded. Family History Nothing Reported. Medical History No medical history recorded. Immunizations Vaccine Type Date Status Note Provider Nam e and Address Organization Details Recorded Time COVID-19, mRNA, LNP-S, PF, 30 mcg/0.3 mL dose 06/26/2020 completed Shreijulianna Torres Heyliger null, PA - [facility] 07/12/2023 16:55:18 COVID-19, mRNA, LNP-S, PF, 30 mcg/0.3 mL dose 07/17/2020 completed Sheri Brian Heyliger null, PA - [facility] 07/12/2023 16:55:18 Tdap 04/08/2019 completed Sheri Torres Heyliger null, PA - [facility] 07/12/2023 16:55:18 Tdap 04/08/2023 completed Sheri Torres Heyliger null, PA - [facility] 07/12/2023 16:55:18 Tdap 06/15/2022 completed Sheri Torres Heyliger null, PA - [facility] 07/12/2023 16:55:18 Past Encounters Encounter ID Performer Location Encounter Start Date Encounter Closed Date Diagnosis/Indication Diagnosis SNOMED-CT Code Diagnosis ICD10 Code Diagnosis IMO Codes Diagnosis Note [id number] [address] [place] [address] 10/15/2019 11:08:56 10/15/2019 12:26:48 [id number] Wallace David, [employer] [address] [place] [address] 07/12/2023 16:24:56 07/12/2023 17:19:51 Acute periodontitis 45080230 K05.20 Based on your presentati on and exam, you are being treated for a Dental Infection. I am going to prescribe you and antibiotic to cover this infection. Please be sure to complete the full course of this antibiotic to prevent antibiotic resistance . Antibiotic s will typically take 4-5 days to start to work with symptom improvemen t. The following are my other recommenda tions to help with symptoms and is important for this diagnosis: 1. Take Ibuprofen or Tylenol if you do not have any allergies to these medication s. If you take a blood thinner you should not take NSAIDS like Ibuprofen. These medication will help with the inflammati on in your respirator y tract which should help the cough.2. Half Peroxide/H usp Water Rinses3. Make an appointmen t with a dentist - tooth infection will be helped with antibiotic s but they usually just continue to reoccur. The only treatment is really a root canal or tooth extraction .4. Oralgel can help alleviate some of the symptoms - this can be purchased OTC5. Ice is ok to help with symptoms, but do not apply heat. I would be seen again if you develop any of the following symptoms.1 . Fever > 101.02. Stiff neck - where you can't turn your neck3. Trouble swallowing your saliva - drooling4. Swelling of a lymph node in your throat that is painful to touch5. Difficulty breathing6 . Severe Headache7. Significan t facial swelling especially if it move up close to your eye. Thank you for using [facility] today, please feel free to contact our office if you have any questions or concerns. Health Concerns Section Related Observation LastModified by Organization Detai ls LastModified Time None Recorded Concern Status LastModified by Organization Details LastModified Time None Recorded Advance Directives Directive None Recorded Payers Insurance Date Sequence Insurance Name Policy Number Policy Ochoa Covered Member ID Ochoa Member ID Guarantor Name 07/12/2023 1 [facility] [employer] - [employer] (MEDICAID HMO) [id number] Schuyler Verdugo [id number] 1 Schuyler Verdugo Notes Date Note Type Note Provider Name and Address Organization Details Recorded Time 07/12/2023 text/html Dental ProblemRe ported by Patientencounter background informationFor source of patient information, patient reportssource of patient information patient.HPIFor onset, patient reports4 weeks ago,gradual onset, andworse.LocationFor symptoms, patient reportspain,gingival swelling, andsensitivity. For location, patient reportsupper,central incisor,lateral incisor,canine,first premolar,first molar, andsecond molar. For treatment, patient reportsother. Walalce Hernandez NP [address] [place], [address], PA - [facility] 07/12/2023 17:19:10
--- OUTSIDE RECORDS SUMMARY | 2025-02-03 10:36 | XMS_ITS | Clinical Summary ---
Author Organization [employer] Address [address] [place] [address] Care Team Providers Care Welfare Officer Name Role Phone Unavailable Primary Care Provider Unavailabl e Allergies No known active allergies Medications * This document contains information received from the source organization and may not represent a complete record from that organization. clonazePAM (KlonoPIN) 0.5 MG tabletIndicatio ns:Bipolar affective disorder, currently manic, moderate (CMS/HCC) (HCC) Take 1 tablet (0.5 mg) by mouth every 12 (twelve) hours if needed for anxiety for up to 10 days. 20 tablet 05/30/2022 Active lamoTRIgine (LaMICtal) 150 MG tabletIndicatio ns:Bipolar affective disorder, currently manic, moderate (CMS/HCC) (HCC) Take 1 tablet (150 mg) by mouth 2 times daily. 60 tablet 05/30/2022 Active gabapentin (Neurontin) 800 MG tabletIndicatio ns:Bipolar affective disorder, currently manic, moderate (CMS/HCC) (HCC) Take 1 tablet (800 mg) by mouth 2 times daily. 60 tablet 05/30/2022 Active Active Problems No known active problems Encounters Date Type Department Care Team Description 12/28/2024 Telephone [facility] MEDICINE [address], [place] [phone] Ghassan Galvez MD 12/14/2024 Patient Outreach [facility] MED & PEDS [address], [place] [phone] Ghassan Galvez MD Transition Of Care (Tcm) (HDF unscheduled.) from Last 3 Months Social History Tobacco Use Types Packs/Day Years Used Date Smoking Tobacco: Never Passive Smoke Exposure: Never Smokeless Tobacco: Never Tobacco Cessation:Counseling Given: Not Answered Housing Stability Answer Date Recorded What is your housing situation today? I do not have housing (Staying with others, in a hotel, in a usp, living outside on the street, on a beach, in a car, or in a park 11/18/[address] you li ve. Do you have problems with any of the following? None of the above 11/18/2022 Food Insecurity Answer Date Recorded Within the past 12 months, y ou worried that your food would run out before you got money to buy more: Never True 12/17/2022 Within the past 12 months,th e food you bought just didn't last and you didn't have enough money to get more: Never True 07/2022 Transportation Answer Date Recorded In the past 12 months, has l ack of transportation kept you from medical appts, meetings, work or from getting things needed for daily living? No 12/17/2022 Utilities Answer Date Recorded In the past 12 months, has t he electric, gas, oil or water company threatened to shut off services in your home? No 12/17/2022 Sex and Gender Information Value Date Recorded Sex Assigned at Male 12/11/2021 10:23 AM EDT Legal Sex Male 10:23 AM EDT Gender Identity Male 05/30/2022 3:31 PM EDT Sexual Orientation Choose not to disclose 2021 10:23 AM EDT Last Filed Vital Signs Vital Sign Reading Time Taken Comments Blood Pressure 145/88 05/30/2022 3:36 PM EDT Pulse 61 05/30/2022 3:36 PM EDT Temperature 36.5 C (97.7 F) 05/30/2022 3:36 PM EDT Respiratory Rate 16 05/30/2022 3:36 PM EDT Oxygen Saturation 96% 05/30/2022 3:36 PM EDT Inhaled Oxygen Concentration - - Weight 108 kg (237 lb) 05/30/2022 3:36 PM EDT Height 180.3 cm (5' 11 ) 05/30/2022 3:36 PM EDT Body Mass Index 33.05 05/30/2022 3:36 PM EDT Plan of Treatment Health Maintenance Due Date Last Done Comments Depression Screening 1986 HIV Screening 1986 Lipid Panel 1986 Disability Screening 1986 Alcohol/Substance Use Screening 1998 Family Planning (PISQ) 2001 HPV Vaccines (1 - Male 3-dose series) 2001 Hepatitis A Vaccines (1 of 2 - Risk 2-dose series) 2005 Hepatitis B Vaccines (1 of 3 - 19+ 3-dose series) 2005 Tobacco Screening 05/31/2023 05/30/2022 SDOH Screening 06/09/2023 06/08/2022 COVID-19 Vaccine (3 - 2024- season) 2024 07/17/2020, 06/26/2020 Influenza Vaccine (#1) 2024 DTaP/Tdap/Td Vaccines (5 - Td or Tdap) 04/08/2033 04/08/2023, 06/15/2022, 04/08/2019, Additional history exists Zoster Vaccines (1 of 2) 2036 RSV Patients and Patients Aged 60 years or older (1 - 1-dose 75+ series) 2061 HIB Vaccines Aged Out No longer eligi ble based on patient's age to complete this topic IPV Vaccines Aged Out No longer eligi ble based on patient's age to complete this topic Meningococcal B Vaccine Aged Out No l onger eligible based on patient's age to complete this topic Meningococcal Vaccine Aged Out No linda oksana eligible based on patient's age to complete this topic Pneumococcal Vaccine: Pediatrics (0 to 5 Years) and At-Risk Patients (6 to 49) Years Aged Out No longer eligible based on patient's age to complete this topic RSV under 20 months Aged Out No longe r eligible based on patient's age to complete this topic Rotavirus Vaccines Aged Out No longer eligible based on patient's age to complete this topic Insurance [facility] C[facility]
--- OUTSIDE RECORDS SUMMARY | 2025-02-03 10:36 | XMS_ITS | Encounter Summary ---
Author Organization [employer] Address [address] [facility] [place] [address] Care Team Providers Care Dye Colorist Dyer Name Role Phone Clarie Dowell Primary Care Provider [phone] Reason for Visit * Reason Onset Date Comments New PAtient 06/29/2022 Encounter Details Date Type Department Care Team (Late st Contact Info) Description 06/29/2022 Telephone [facility] MEDICINE [address] [place], [place] [phone] Claire Dowell FNP [address], [place] [phone] New PAtient Social History Tobacco Use Types Packs/Day Years Used Date Smoking Tobacco: Never Passive Smoke Exposure: Never Smokeless Tobacco: Never Sex and Gender Information Value Date Recorded Sex Assigned at Male 12/11/2021 10:23 AM EDT Legal Sex Male 10:23 AM EDT Gender Identity Male 05/30/2022 3:31 PM EDT Sexual Orientation Choose not to disclose 2021 10:23 AM EDT COVID-19 Exposure Response Date Recorded In the last 10 days, have yo u been in contact with someone who was confirmed or suspected to have Coronavirus/COVID-19? Unable to assess 05/30/2022 2:35 PM EDT documented as of this encounter Miscellaneous Notes * Telephone Encounter - Laurie Luong - 11/13/2022 1:24 PM EDT Tc to patient, to r/s CERTIFIED REHABILITATION COUNSELOR Appt due to provider being out today, Patient did not answer, left voicemail to give call back to facility at [phone] * Telephone Encounter - Laurie Luong - 08/01/2022 9:13 AM EDT Tc to patient, to r/s CERTIFIED REHABILITATION COUNSELOR Appt due to provider being out today, Patient did not answer, left voicemail to give call back to facility at [phone] * Telephone Encounter - Laurie Luong - 06/29/2022 4:05 PM EDT MARCELA Birch called pt to r/s CERTIFIED REHABILITATION COUNSELOR appt. Pt demographics and insurance information were verified. Pt did not discuss previous care. Pt reports the following medical conditions: Bipolar. Pt is taking medication: Clonazepam, Gabapentin, lamotrigine. (last prescribed on 05/30/2022). Pt given CERTIFIED REHABILITATION COUNSELOR appt with on 08/01/2022 @ 2:[address] Claire Dowell. Pt will be sent appt reminder card and medical release form and agrees to complete and to return to medical records prior to CERTIFIED REHABILITATION COUNSELOR appt. documented in this encounter Plan of Treatment Not on file documented as of this encounter Visit Diagnoses Not on filedocumented in this encounter Care Teams Dye Colorist Dyer Relationship Specialty Start Date End Date Claire Dowell FNP [address] [place] [address] PCP - General Family Medicine 06/29/22 07/11/22 documented as of this encounter
[2025-02-03 10:41] LABS: HIV Num 1 0.17 S/CO (0.00-0.99)
[2025-02-03 12:21] VITALS: BP 145/88; PULSE 87; RESP 16; TEMP 36.3; O2SAT 95
== END 2025-02-03 12:23 | disposition home or self-care (01) ==
PROVIDERS: Registered Nurse Emergency; Emergency Provider Emergency Medicine; PCP Internal Medicine
DX: Z20.6 Contact with and (suspected) exposure to human immunodeficiency virus [HIV] (principal); F19.10 Other psychoactive substance abuse, uncomplicated
CPT/HCPCS: 36415; 71046; 80053; 85025; 87389; 99282; 99283